=== PATIENT | female | born 1930 | race Caucasian/White ===

== ENCOUNTER 2016-02-24 14:56 | Inpatient (IN) | payer OTHER, MEDICARE ==
[~2016-02-24] VITALS: Ht 157.5 cm; Wt 76.7 kg
[~2016-02-24 14:56] MED LIST: AMLO5TAB2 PO; BISA5TAB10 PO; CLON0.1T PO; CLON0.5T4 PO; DIPH25TA62 PO; GABA-532 PO; IBUP-1955 PO; LEVO500T15 PO; LOSA1TAB36 PO; PANT40TA2 PO; ROSU20TA PO; SENN8.6T22 PO; TRAM50TA2 PO
[2016-02-24] MEDS ORDERED: DIATR MEGLU/DIATRIZOATE SODIUM 30 ML BOTTLE (GASTROGRAPHIN) ONE (17:08)
[2016-02-24 19:56] LABS: BASOPHILS # (AUTO) 0.4 /CMM (0.0-0.2); BASOPHILS % (AUTO) 2.9 % (0.0-2.0); DIFF TOTAL % 100 %; EOSINOPHILS # (AUTO) 0.2 /CMM (0.0-0.7); EOSINOPHILS % (AUTO) 1.3 % (0.0-6.0); HEMATOCRIT 32 % (33-45); HEMOGLOBIN 10.5 g/dL (11.5-14.8); LYMPHOCYTES # (AUTO) 3.4 /CMM (0.8-4.8); LYMPHOCYTES % (AUTO) 22.8 % (20.0-44.0); MEAN CORPUSCULAR HEMOGLOBIN 28 PG (26.0-33.0); MEAN CORPUSCULAR HGB CONC 33 g/dl (31.0-36.0); MEAN CORPUSCULAR VOLUME 86 fL (82-100); MONOCYTES # (AUTO) 0.9 /CMM (0.1-1.30); NEUTROPHILS # (AUTO) 10.2 /CMM (1.8-8.9); PLATELET COUNT (AUTO) 365 /CMM (150-450); RED BLOOD CELL COUNT(AUTO) 3.69 MIL/uL (4.0-5.2); WHITE BLOOD COUNT (AUTO) 15.1 K/uL (4.3-11.0)
[2016-02-24] MEDS ORDERED: MAG HYDROX/AL HYDROX/SIMETH 30 ML UDC PO PRN (20:00)
[2016-02-24] MEDS ORDERED: MAGNESIUM HYDROXIDE 30 ML UDC PO PRN (20:00)
[2016-02-24] MEDS ORDERED: ENOXAPARIN SODIUM 40 MG/0.4 ML DISP.SYRIN SQ SCH (20:00)
[2016-02-24] MEDS ORDERED: ONDANSETRON HCL/PF 4 MG/2 ML VIAL IVP PRN (20:00)
[2016-02-24] MEDS ORDERED: ACETAMINOPHEN 325 MG TABLET PO PRN (20:00)
[2016-02-24] MEDS ORDERED: Z GUARD REMEDY 2 OZ OINT TP PRN (20:00)
[2016-02-24 20:06] LABS: CALCIUM, SERUM 8.9 mg/dL (8.5-10.1); CREATININE 1.2 mg/dL (0.6-1.3); POTASSIUM 4.4 mmol/L (3.5-5.1)
[2016-02-24 20:10] LABS: INR 1.06 (0.87-1.13); PROTHROMBIN TIME 11.1 SECS (9.5-12.7)
[2016-02-24 21:00] VITALS: BP 99/51
[2016-02-24] MEDS: ENOXAPARIN SODIUM 30 MG/0.3 ML DISP.SYRIN SQ SCH (22:00)
[2016-02-24] MEDS ORDERED: IV SET PRIMARY PUMP SET 1 EA INFUS.SET MC ONE (23:22)
[2016-02-25] MEDS: IV NS 0.9% 1,000 ML IV PRN ×2 (01:41→19:48)
[2016-02-25 06:54] LABS: BASOPHILS % (AUTO) 0.4 % (0.0-2.0); DIFF TOTAL % 100 %; EOSINOPHILS # (AUTO) 0.1 /CMM (0.0-0.7); EOSINOPHILS % (AUTO) 0.4 % (0.0-6.0); HEMATOCRIT 31 % (33-45); HEMOGLOBIN 10.1 g/dL (11.5-14.8); LYMPHOCYTES # (AUTO) 2.6 /CMM (0.8-4.8); LYMPHOCYTES % (AUTO) 20.1 % (20.0-44.0); MEAN CORPUSCULAR HEMOGLOBIN 28 PG (26.0-33.0); MEAN CORPUSCULAR HGB CONC 33 g/dl (31.0-36.0); MEAN CORPUSCULAR VOLUME 87 fL (82-100); MONOCYTES # (AUTO) 0.1 /CMM (0.1-1.30); MONOCYTES % (AUTO) 0.6 % (2.0-12.0); NEUTROPHILS # (AUTO) 10.1 /CMM (1.8-8.9); NEUTROPHILS % (AUTO) 78.5 % (43.0-81.0); PLATELET COUNT (AUTO) 356 /CMM (150-450); RED BLOOD CELL COUNT(AUTO) 3.58 MIL/uL (4.0-5.2); WHITE BLOOD COUNT (AUTO) 12.9 K/uL (4.3-11.0)
[2016-02-25 07:29] LABS: CALCIUM, SERUM 8.7 mg/dL (8.5-10.1); CREATININE 1.1 mg/dL (0.6-1.3); PHOSPHORUS 4.2 mg/dL (2.5-4.9); POTASSIUM 4.2 mmol/L (3.5-5.1)
[2016-02-25] MEDS ORDERED: ALBU2.5V12 IH (07:58)
[2016-02-25] MEDS ORDERED: BLOO-697 IN (07:58)
[2016-02-25] MEDS ORDERED: NUT.237L30 GT (07:58)
[2016-02-25] MEDS ORDERED: ACET160S3 GT ×2 (07:58)
[2016-02-25] MEDS ORDERED: FAMO20TA8 GT (07:58)
[2016-02-25] MEDS ORDERED: ATOR10TA GT (07:58)
[2016-02-25] MEDS ORDERED: DOCU50LI GT (07:58)
[2016-02-25] MEDS ORDERED: SERT100T12 PO (07:58)
[2016-02-25] MEDS ORDERED: RISP0.252 GT (07:58)
[2016-02-25] MEDS ORDERED: IPRA0.2S9 IH (07:58)
[2016-02-25] MEDS ORDERED: ALLA266C2 TP (07:58)
[2016-02-25] MEDS ORDERED: INSU100V13 SQ (07:58)
[2016-02-25] MEDS ORDERED: AMIN30LI4 GT (07:58)
[2016-02-25] MEDS ORDERED: GEL100GE TP (07:58)
[2016-02-25 08:00] VITALS: BP 108/52
[2016-02-25] MEDS: PANTOPRAZOLE 40 MG VIAL IV SCH (08:11)
[2016-02-25] MEDS ORDERED: VECURONIUM 10 MG VIAL ONE (13:30)
[2016-02-25] MEDS: MORPHINE SULFATE INJ 2 MG/ML DISP.SYRIN IV PRN (14:17)
[2016-02-25 16:00] VITALS: BP 121/71
[2016-02-25 20:50] VITALS: BP 93/56
[2016-02-25] MEDS: ENOXAPARIN SODIUM 30 MG/0.3 ML DISP.SYRIN SQ SCH (21:00)
[2016-02-26 08:00] VITALS: BP 118/55
[2016-02-26] MEDS ORDERED: GLYTROL 1,000 ML BAG GT PRN (15:30)
[2016-02-26 16:00] VITALS: BP 125/51
[2016-02-26] MEDS: PANTOPRAZOLE 40 MG VIAL IV SCH (16:16)
[2016-02-26] MEDS: HYDROGEL DRESSING 90 GM TUBE TP SCH (16:17)
[2016-02-26] MEDS: IV NS 0.9% 1,000 ML IV PRN (17:59)
[2016-02-26] MEDS: ENOXAPARIN SODIUM 30 MG/0.3 ML DISP.SYRIN SQ SCH (20:35)
[2016-02-26] MEDS: MORPHINE SULFATE INJ 2 MG/ML DISP.SYRIN IV PRN (20:40)
[2016-02-26 21:19] VITALS: BP_SYST 125; BP_SYST 92; BP_SYST 94; BP_DIAS 36; BP_DIAS 46; BP_DIAS 64
[2016-02-27 06:42] LABS: BASOPHILS # (AUTO) 0.1 /CMM (0.0-0.2); BASOPHILS % (AUTO) 0.8 % (0.0-2.0); DIFF TOTAL % 100 %; EOSINOPHILS # (AUTO) 0.2 /CMM (0.0-0.7); EOSINOPHILS % (AUTO) 1.5 % (0.0-6.0); HEMATOCRIT 32 % (33-45); HEMOGLOBIN 10.4 g/dL (11.5-14.8); LYMPHOCYTES # (AUTO) 2.3 /CMM (0.8-4.8); LYMPHOCYTES % (AUTO) 21.4 % (20.0-44.0); MEAN CORPUSCULAR HEMOGLOBIN 28 PG (26.0-33.0); MEAN CORPUSCULAR HGB CONC 33 g/dl (31.0-36.0); MEAN CORPUSCULAR VOLUME 87 fL (82-100); MONOCYTES # (AUTO) 0.1 /CMM (0.1-1.30); MONOCYTES % (AUTO) 1.2 % (2.0-12.0); NEUTROPHILS # (AUTO) 8.1 /CMM (1.8-8.9); NEUTROPHILS % (AUTO) 75.1 % (43.0-81.0); PLATELET COUNT (AUTO) 357 /CMM (150-450); RED BLOOD CELL COUNT(AUTO) 3.66 MIL/uL (4.0-5.2); WHITE BLOOD COUNT (AUTO) 10.7 K/uL (4.3-11.0)
[2016-02-27 07:02] LABS: CALCIUM, SERUM 8.7 mg/dL (8.5-10.1); CREATININE 0.8 mg/dL (0.6-1.3); POTASSIUM 4.1 mmol/L (3.5-5.1)
[2016-02-27 08:00] VITALS: BP 134/61
[2016-02-27] MEDS: PANTOPRAZOLE 40 MG VIAL IV SCH (08:48)
[2016-02-27] MEDS: HYDROGEL DRESSING 90 GM TUBE TP SCH (08:49)
== END 2016-02-27 16:00 | DRG 252 ==
LOC: ER 14:57 → MEDSG2 20:49
PROVIDERS: ADMIT Family Medicine; ATTEND Family Medicine
PROC: 0D20XUZ Change Feeding Device in Upper Intestinal Tract, External Approach (ICD-10-PCS; principal; 2016-02-26 09:06)
DX: K94.23 Gastrostomy malfunction (principal); G30.9 Alzheimer's disease, unspecified; I11.0 Hypertensive heart disease with heart failure; I50.32 Chronic diastolic (congestive) heart failure; R13.10 Dysphagia, unspecified; F02.80 Dementia in other diseases classified elsewhere, unspecified severity, without behavioral disturbance, psychotic disturbance, mood disturbance, and anxiety; D63.8 Anemia in other chronic diseases classified elsewhere; E11.9 Type 2 diabetes mellitus without complications; E78.5 Hyperlipidemia, unspecified; I25.10 Atherosclerotic heart disease of native coronary artery without angina pectoris; K21.9 Gastro-esophageal reflux disease without esophagitis; M19.90 Unspecified osteoarthritis, unspecified site; D72.829 Elevated white blood cell count, unspecified; Y84.9 Medical procedure, unspecified as the cause of abnormal reaction of the patient, or of later complication, without mention of misadventure at the time of the procedure; Y92.89 Other specified places as the place of occurrence of the external cause
CPT/HCPCS: 36415; 43246; 71010-TC; 74000-TC; 80048-TC; 83735-TC; 84100-TC; 85025-TC; 85730-TC; 86850-TC; 87081-TC; 92521; A4606; A6248; C9113; J1650; J2270; J3490; J7030; Q9963; Z7610

== ENCOUNTER 2016-04-25 12:26 | Inpatient (IN) | payer OTHER, MEDICARE ==
[2016-04-25] VITALS: BP 123/46
[~2016-04-25] VITALS: Ht 157.5 cm; Wt 86.2 kg
[~2016-04-25 12:26] MED LIST changes: +ACET650S26 GT; +ALBU2.5V13 IH; +ALLA266C2 TP; +AMIN30LI4 GT; -AMLO5TAB2 PO; +ATOR10TA GT; -BISA5TAB10 PO; +BLOO-697 IN; -CLON0.1T PO; -CLON0.5T4 PO; -DIPH25TA62 PO; +DOCU50LI GT; +FAMO20TA8 GT; -GABA-532 PO; +GEL100GE TP; -IBUP-1955 PO; +INSU100V7 SQ; +IPRA0.2S9 IH; -LEVO500T15 PO; -LOSA1TAB36 PO; +NUT.237L30 GT; -PANT40TA2 PO; +RISP0.253 GT; -ROSU20TA PO; -SENN8.6T22 PO; +SERT100T12 GT; -TRAM50TA2 PO
[2016-04-25] MEDS ORDERED: ACETAMINOPHEN ES 500 MG TABLET PO ONE (13:00)
[2016-04-25] MEDS ORDERED: IV NS 0.9% 1,000 ML ONE (13:00)
[2016-04-25] MEDS ORDERED: ACETAMINOPHEN ES 500 MG TABLET ONE (13:00)
[2016-04-25] MEDS ORDERED: IV NS 0.9% 1,000 ML BAG IV ONE (13:00)
[2016-04-25] MEDS ORDERED: IV SET PRIMARY PUMP SET 1 EA INFUS.SET MC ONE ×2 (13:00→14:34)
[2016-04-25 13:39] LABS: KETONES,URINE Negative (NEGATIVE); LEUKOCYTE ESTERASE ,URINE Large (NEGATIVE)
[2016-04-25 13:49] LABS: BASOPHILS # (AUTO) 0.5 /CMM (0.0-0.2); BASOPHILS % (AUTO) 1.7 % (0.0-2.0); DIFF TOTAL % 100 %; HEMATOCRIT 31 % (33-45); HEMOGLOBIN 10.4 g/dL (11.5-14.8); LYMPHOCYTES # (AUTO) 1.5 /CMM (0.8-4.8); LYMPHOCYTES % (AUTO) 4.7 % (20.0-44.0); MEAN CORPUSCULAR HEMOGLOBIN 29 PG (26.0-33.0); MEAN CORPUSCULAR HGB CONC 33 g/dl (31.0-36.0); MEAN CORPUSCULAR VOLUME 88 fL (82-100); MONOCYTES # (AUTO) 2.1 /CMM (0.1-1.30); MONOCYTES % (AUTO) 6.5 % (2.0-12.0); NEUTROPHILS # (AUTO) 27.8 /CMM (1.8-8.9); NEUTROPHILS % (AUTO) 87.1 % (43.0-81.0); PLATELET COUNT (AUTO) 308 /CMM (150-450); RED BLOOD CELL COUNT(AUTO) 3.57 MIL/uL (4.0-5.2)
[2016-04-25 13:49] LABS: ADD UA MICROSCOPIC YES
[2016-04-25 13:53] LABS: WHITE BLOOD COUNT (AUTO) 31.9 K/uL (4.3-11.0)
[2016-04-25 13:54] LABS: CALCIUM, SERUM 9.2 mg/dL (8.5-10.1); CREATININE 1.2 mg/dL (0.6-1.3); POTASSIUM 4.7 mmol/L (3.5-5.1)
[2016-04-25 13:57] LABS: INR 1.05 (0.87-1.13)
[2016-04-25 14:00] LABS: TROPONIN I 0.041 ng/mL (0.00-0.056)
[2016-04-25 14:09] LABS: ADD URINE CULTURE YES
[2016-04-25 14:09] LABS: ALBUMIN 2.2 g/dL (3.4-5.0); BILIRUBIN,DIRECT 0.1 mg/dL (0.0-0.2); BILIRUBIN,TOTAL 0.2 mg/dL (0.2-1.0); INDIRECT BILIRUBIN 0.1 mg/dL (0.0-1.1); TOTAL PROTEIN, SERUM 7.5 g/dL (6.4-8.2)
[2016-04-25] MEDS ORDERED: CARB-93 GT (14:16)
[2016-04-25] MEDS ORDERED: ASCO-340 GT (14:16)
[2016-04-25] MEDS ORDERED: RISP1TAB27 GT (14:16)
[2016-04-25] MEDS ORDERED: HEPA500014 SQ (14:16)
[2016-04-25] MEDS ORDERED: ZINC220T GT (14:16)
[2016-04-25 14:19] LABS: LACTIC ACID 1.5 mmol/L (0.4-2.0)
[2016-04-25] MEDS ORDERED: LEVOFLOXACIN 750 MG /D5W 150ML 150 ML IV ONE ×2 (14:30→14:34)
[2016-04-25 15:45] LABS: BAND % (MANUAL) 4 % (0.0-5.0); LYMPHOCYTES % (MANUAL) 12 % (16-48); PLATELET ESTIMATE ADEQUATE
[2016-04-25 15:46] LABS: ANISOCYTOSIS 1+
[2016-04-25 16:00] VITALS: BP_SYST 105; BP_SYST 92; BP_DIAS 28; BP_DIAS 44
[2016-04-25] MEDS ORDERED: HYDROGEL DRESSING 90 GM TUBE TP PRN (16:30)
[2016-04-25] MEDS: Z GUARD REMEDY 2 OZ OINT TP SCH (16:30)
[2016-04-25] MEDS: NYSTATIN CREAM 15 GM TUBE TP SCH (17:00)
[2016-04-25] MEDS ORDERED: VANCOMYCIN 1 GM in IV D5W 250 ML IV ONE (17:30)
[2016-04-25] MEDS ORDERED: HYDROCODONE/APAP 5/325MG 1 EACH TABLET PO PRN (18:00)
[2016-04-25] MEDS ORDERED: ONDANSETRON HCL/PF 4 MG/2 ML VIAL IVP PRN (18:00)
[2016-04-25] MEDS ORDERED: IV NS 0.9% 1,000 ML BAG IV PRN (18:00)
[2016-04-25] MEDS ORDERED: GLYTROL 1,000 ML BAG GT SCH (18:00)
[2016-04-25] MEDS ORDERED: Z GUARD REMEDY 2 OZ OINT TP PRN (18:00)
[2016-04-25] MEDS ORDERED: MAG HYDROX/AL HYDROX/SIMETH 30 ML UDC PO PRN (18:00)
[2016-04-25] MEDS ORDERED: MAGNESIUM HYDROXIDE 30 ML UDC PO PRN (18:00)
[2016-04-25] MEDS ORDERED: SECONDARY IV SET 1 EA INFUS.SET MC ONE (18:50)
[2016-04-25] MEDS: IV NS 0.9% 1,000 ML IV SCH (18:51)
[2016-04-25] MEDS: MEROPENEM 500 MG in IV NS 0.9% 50 ML IV SCH (18:54)
[2016-04-25 19:18] LABS: ALBUMIN 2.1 g/dL (3.4-5.0); BILIRUBIN,DIRECT 0.1 mg/dL (0.0-0.2); BILIRUBIN,TOTAL 0.3 mg/dL (0.2-1.0); INDIRECT BILIRUBIN 0.2 mg/dL (0.0-1.1); TOTAL PROTEIN, SERUM 7.4 g/dL (6.4-8.2)
[2016-04-25 19:21] LABS: LACTIC ACID 0.7 mmol/L (0.4-2.0)
[2016-04-25 20:00] VITALS: BP 114/49
[2016-04-25] MEDS ORDERED: ZOLPIDEM TARTRATE 5 MG TABLET PO PRN (22:00)
[2016-04-25] MEDS: METRONIDAZOLE 500 MG TABLET PO SCH (22:32)
[2016-04-25] MEDS: ATORVASTATIN 10 MG TABLET GT SCH (22:33)
[2016-04-25] MEDS: ENOXAPARIN SODIUM 30 MG/0.3 ML DISP.SYRIN SQ SCH (22:33)
[2016-04-25] MEDS: INSULIN DETEMIR 100 UNIT/ML CARTRIDGE SQ SCH (22:43)
[2016-04-26] VITALS: BP 123/46
[2016-04-26] MEDS: IV NS 0.9% 1,000 ML IV SCH ×2 (00:36→14:12)
[2016-04-26] MEDS: ACETAMINOPHEN 325 MG TABLET PO PRN ×2 (03:28→22:48)
[2016-04-26 04:00] VITALS: BP 134/50
[2016-04-26] MEDS: METRONIDAZOLE 500 MG TABLET PO SCH ×3 (05:45→21:15)
[2016-04-26] MEDS: MEROPENEM 500 MG in IV NS 0.9% 50 ML IV SCH ×2 (05:45→17:38)
[2016-04-26 07:48] LABS: ANION GAP 14 (5-14); CARBON DIOXIDE 27 mmol/L (21-32); CHLORIDE 106 mmol/L (98-107); CREATININE 1.2 mg/dL (0.6-1.3); GLUCOSE 185 mg/dL (74-106); PHOSPHORUS 3.1 mg/dL (2.5-4.9); POTASSIUM 3.9 mmol/L (3.5-5.1); SODIUM SERUM 143 mmol/L (136-145); UREA NITROGEN, BLOOD 62 mg/dL (7-18)
[2016-04-26 07:50] LABS: CHOLESTEROL 81 mg/dL (<200); LDL 23 mg/dL (0-99); TRIGLYCERIDES 345 mg/dL (30-150)
[2016-04-26 07:59] LABS: BASOPHILS % (AUTO) 0.2 % (0.0-2.0); DIFF TOTAL % 100 %; HEMATOCRIT 30 % (33-45); HEMOGLOBIN 9.6 g/dL (11.5-14.8); LYMPHOCYTES # (AUTO) 1.2 /CMM (0.8-4.8); MEAN CORPUSCULAR HEMOGLOBIN 29 PG (26.0-33.0); MEAN CORPUSCULAR HGB CONC 33 g/dl (31.0-36.0); MEAN CORPUSCULAR VOLUME 88 fL (82-100); MONOCYTES # (AUTO) 0.6 /CMM (0.1-1.30); NEUTROPHILS # (AUTO) 27.3 /CMM (1.8-8.9); NEUTROPHILS % (AUTO) 93.8 % (43.0-81.0); PLATELET COUNT (AUTO) 295 /CMM (150-450); RED BLOOD CELL COUNT(AUTO) 3.35 MIL/uL (4.0-5.2); WHITE BLOOD COUNT (AUTO) 29.1 K/uL (4.3-11.0)
[2016-04-26 08:00] VITALS: BP 108/43
[2016-04-26 08:35] LABS: HDL CHOLESTEROL < 10 mg/dL (40-60)
[2016-04-26] MEDS: DOCUSATE SODIUM LIQ 100 MG/10 ML UDC GT SCH ×2 (09:00→17:36)
[2016-04-26] MEDS ORDERED: IV NS 0.9% 1,000 ML BAG IV SCH (09:00)
[2016-04-26] MEDS ORDERED: HEPARIN SODIUM PORCINE SQ SCH (09:00)
[2016-04-26] MEDS: ASCORBIC ACID 500 MG TABLET GT SCH (09:01)
[2016-04-26] MEDS: FAMOTIDINE (20 MG) 20 MG TABLET GT SCH (09:01)
[2016-04-26] MEDS: risperiDONE 1 MG TABLET PO SCH (09:01)
[2016-04-26] MEDS: PANTOPRAZOLE 40 MG TABLET.DR PO SCH (09:01)
[2016-04-26] MEDS: SERTRALINE HCL 50 MG TABLET GT SCH (09:01)
[2016-04-26] MEDS: ZINC SULFATE 220 MG CAPSULE GT SCH (09:01)
[2016-04-26] MEDS: CARBIDOPA/LEVODOPA 25/100 MG 1 UDTAB GT SCH ×3 (09:01→17:36)
[2016-04-26] MEDS: NEOMY SULF/BACITRAC ZN/POLY 15 GM TUBE TP SCH (09:02)
[2016-04-26] MEDS: Z GUARD REMEDY 2 OZ OINT TP SCH (09:02)
[2016-04-26] MEDS: NYSTATIN CREAM 15 GM TUBE TP SCH ×2 (09:02→17:49)
[2016-04-26] MEDS: BLOOD SUGAR DIAGNOSTIC 1 EACH STRIP IN SCH (09:02)
[2016-04-26 11:45] LABS: LYMPHOCYTES % (MANUAL) 7 % (16-48)
[2016-04-26 11:48] LABS: PLATELET ESTIMATE ADEQU
[2016-04-26] MEDS: ACETAMINOPHEN 650 MG/20.3 ML UDC GT PRN (11:51)
[2016-04-26 12:00] VITALS: BP 108/48
[2016-04-26 16:00] VITALS: BP 123/51
[2016-04-26] MEDS: CHOLESTYRAMINE/ASPARTAME 4 G/PKT PACKET PO SCH (17:36)
[2016-04-26] MEDS: ACIDOPHILUS/BULGARICUS 1 EACH TAB.CHEW PO SCH (17:36)
[2016-04-26] MEDS ORDERED: VANCOMYCIN FOR PO/GT USE 500 MG ORAL.SUSP PO SCH (18:00)
[2016-04-26] MEDS: VANCOMYCIN HCL 125 MG/2.5 ML ORAL.SUSP PO SCH (18:27)
[2016-04-26] MEDS: GLYTROL 1,000 ML BAG GT SCH (18:28)
[2016-04-26 20:00] VITALS: BP 117/38
[2016-04-26] MEDS: MUPIROCIN OINT 2% 22 GM TUBE SCH (21:15)
[2016-04-26] MEDS: ATORVASTATIN 10 MG TABLET GT SCH (21:15)
[2016-04-26] MEDS: ENOXAPARIN SODIUM 30 MG/0.3 ML DISP.SYRIN SQ SCH (21:16)
[2016-04-26] MEDS: INSULIN DETEMIR 100 UNIT/ML CARTRIDGE SQ SCH (22:09)
[2016-04-27] MEDS: VANCOMYCIN HCL 125 MG/2.5 ML ORAL.SUSP PO SCH ×4 (00:41→18:28)
[2016-04-27] MEDS: IV NS 0.9% 1,000 ML IV SCH ×3 (01:57→22:32)
[2016-04-27 04:00] VITALS: BP 109/42
[2016-04-27] MEDS: MEROPENEM 500 MG in IV NS 0.9% 50 ML IV SCH ×2 (05:10→18:28)
[2016-04-27] MEDS: METRONIDAZOLE 500 MG TABLET PO SCH ×3 (05:10→22:32)
[2016-04-27 08:00] VITALS: BP 112/49
[2016-04-27] MEDS: MUPIROCIN OINT 2% 22 GM TUBE SCH ×2 (09:00→22:34)
[2016-04-27] MEDS: Z GUARD REMEDY 2 OZ OINT TP SCH (09:42)
[2016-04-27] MEDS: SERTRALINE HCL 50 MG TABLET GT SCH (09:57)
[2016-04-27] MEDS: DOCUSATE SODIUM LIQ 100 MG/10 ML UDC GT SCH ×2 (09:57→16:08)
[2016-04-27] MEDS: ZINC SULFATE 220 MG CAPSULE GT SCH (09:57)
[2016-04-27] MEDS: risperiDONE 1 MG TABLET PO SCH (09:58)
[2016-04-27] MEDS: ASCORBIC ACID 500 MG TABLET GT SCH (09:58)
[2016-04-27] MEDS: FAMOTIDINE (20 MG) 20 MG TABLET GT SCH (09:58)
[2016-04-27] MEDS: ACIDOPHILUS/BULGARICUS 1 EACH TAB.CHEW PO SCH ×3 (09:58→16:08)
[2016-04-27] MEDS: ACETAMINOPHEN 325 MG TABLET PO PRN (09:58)
[2016-04-27] MEDS: CARBIDOPA/LEVODOPA 25/100 MG 1 UDTAB GT SCH ×3 (09:58→16:08)
[2016-04-27] MEDS: PANTOPRAZOLE 40 MG TABLET.DR PO SCH (09:58)
[2016-04-27] MEDS: NYSTATIN CREAM 15 GM TUBE TP SCH ×2 (09:59→16:08)
[2016-04-27] MEDS: BLOOD SUGAR DIAGNOSTIC 1 EACH STRIP IN SCH (09:59)
[2016-04-27] MEDS: NEOMY SULF/BACITRAC ZN/POLY 15 GM TUBE TP SCH (10:15)
[2016-04-27] MEDS: CHOLESTYRAMINE/ASPARTAME 4 G/PKT PACKET PO SCH (11:00)
[2016-04-27 16:00] VITALS: BP 108/37
[2016-04-27 20:00] VITALS: BP 92/42
[2016-04-27 21:21] LABS: DIFF TOTAL % 100 %; EOSINOPHILS # (AUTO) 0.1 /CMM (0.0-0.7); EOSINOPHILS % (AUTO) 0.2 % (0.0-6.0); HEMATOCRIT 27 % (33-45); HEMOGLOBIN 8.9 g/dL (11.5-14.8); LYMPHOCYTES # (AUTO) 2.4 /CMM (0.8-4.8); LYMPHOCYTES % (AUTO) 7.3 % (20.0-44.0); MEAN CORPUSCULAR HEMOGLOBIN 29 PG (26.0-33.0); MEAN CORPUSCULAR HGB CONC 33 g/dl (31.0-36.0); MEAN CORPUSCULAR VOLUME 89 fL (82-100); MONOCYTES # (AUTO) 0.4 /CMM (0.1-1.30); MONOCYTES % (AUTO) 1.2 % (2.0-12.0); NEUTROPHILS # (AUTO) 29.5 /CMM (1.8-8.9); NEUTROPHILS % (AUTO) 91.3 % (43.0-81.0); PLATELET COUNT (AUTO) 285 /CMM (150-450); RED BLOOD CELL COUNT(AUTO) 3.08 MIL/uL (4.0-5.2)
[2016-04-27 21:26] LABS: WHITE BLOOD COUNT (AUTO) 32.3 K/uL (4.3-11.0)
[2016-04-27] MEDS: ATORVASTATIN 10 MG TABLET GT SCH (22:32)
[2016-04-27] MEDS: GLYTROL 1,000 ML BAG GT SCH (22:33)
[2016-04-27] MEDS: ENOXAPARIN SODIUM 30 MG/0.3 ML DISP.SYRIN SQ SCH (22:35)
[2016-04-27] MEDS: INSULIN DETEMIR 100 UNIT/ML CARTRIDGE SQ SCH (22:48)
[2016-04-28 00:04] LABS: ANISOCYTOSIS 2+; BAND % (MANUAL) 2 % (0.0-5.0); HYPOCHROMASIA 2+; LYMPHOCYTES % (MANUAL) 8 % (16-48); PLATELET ESTIMATE ADEQUATE
[2016-04-28] MEDS: VANCOMYCIN HCL 125 MG/2.5 ML ORAL.SUSP PO SCH ×5 (00:24→23:20)
[2016-04-28 04:00] VITALS: BP 102/41
[2016-04-28] MEDS: MEROPENEM 500 MG in IV NS 0.9% 50 ML IV SCH ×2 (05:23→18:03)
[2016-04-28] MEDS: METRONIDAZOLE 500 MG TABLET PO SCH ×3 (05:23→21:31)
[2016-04-28 06:39] LABS: BASOPHILS % (AUTO) 0.1 % (0.0-2.0); DIFF TOTAL % 100 %; EOSINOPHILS # (AUTO) 0.2 /CMM (0.0-0.7); EOSINOPHILS % (AUTO) 0.6 % (0.0-6.0); HEMATOCRIT 32 % (33-45); HEMOGLOBIN 10.2 g/dL (11.5-14.8); LYMPHOCYTES # (AUTO) 2.2 /CMM (0.8-4.8); LYMPHOCYTES % (AUTO) 6.9 % (20.0-44.0); MEAN CORPUSCULAR HEMOGLOBIN 29 PG (26.0-33.0); MEAN CORPUSCULAR HGB CONC 32 g/dl (31.0-36.0); MEAN CORPUSCULAR VOLUME 91 fL (82-100); MONOCYTES # (AUTO) 0.1 /CMM (0.1-1.30); MONOCYTES % (AUTO) 0.4 % (2.0-12.0); NEUTROPHILS # (AUTO) 28.9 /CMM (1.8-8.9); PLATELET COUNT (AUTO) 156 /CMM (150-450)
[2016-04-28 06:54] LABS: WHITE BLOOD COUNT (AUTO) 31.4 K/uL (4.3-11.0)
[2016-04-28 07:04] LABS: CALCIUM, SERUM 8.8 mg/dL (8.5-10.1); CREATININE 0.9 mg/dL (0.6-1.3); PHOSPHORUS 3.5 mg/dL (2.5-4.9); POTASSIUM 4.4 mmol/L (3.5-5.1)
[2016-04-28] MEDS: IV NS 0.9% 1,000 ML IV SCH ×2 (07:23→17:31)
[2016-04-28] MEDS: PANTOPRAZOLE 40 MG TABLET.DR PO SCH (07:30)
[2016-04-28 07:31] LABS: ANISOCYTOSIS 1+; BAND % (MANUAL) 4 % (0.0-5.0); LYMPHOCYTES % (MANUAL) 15 % (16-48); PLATELET ESTIMATE DECREASED
[2016-04-28 08:00] VITALS: BP 108/95
[2016-04-28] MEDS: SERTRALINE HCL 50 MG TABLET GT SCH (09:53)
[2016-04-28] MEDS: DOCUSATE SODIUM LIQ 100 MG/10 ML UDC GT SCH ×2 (09:53→17:30)
[2016-04-28] MEDS: FAMOTIDINE (20 MG) 20 MG TABLET GT SCH (09:54)
[2016-04-28] MEDS: ZINC SULFATE 220 MG CAPSULE GT SCH (09:54)
[2016-04-28] MEDS: CHOLESTYRAMINE/ASPARTAME 4 G/PKT PACKET PO SCH (09:54)
[2016-04-28] MEDS: risperiDONE 1 MG TABLET PO SCH (09:54)
[2016-04-28] MEDS: CARBIDOPA/LEVODOPA 25/100 MG 1 UDTAB GT SCH ×3 (09:54→17:30)
[2016-04-28] MEDS: ACIDOPHILUS/BULGARICUS 1 EACH TAB.CHEW PO SCH ×3 (09:54→17:30)
[2016-04-28] MEDS: Z GUARD REMEDY 2 OZ OINT TP SCH (09:55)
[2016-04-28] MEDS: MUPIROCIN OINT 2% 22 GM TUBE SCH ×2 (09:55→21:31)
[2016-04-28] MEDS: ASCORBIC ACID 500 MG TABLET GT SCH (09:55)
[2016-04-28] MEDS: NEOMY SULF/BACITRAC ZN/POLY 15 GM TUBE TP SCH (09:55)
[2016-04-28] MEDS: BLOOD SUGAR DIAGNOSTIC 1 EACH STRIP IN SCH (09:55)
[2016-04-28] MEDS: NYSTATIN CREAM 15 GM TUBE TP SCH ×2 (09:55→16:53)
[2016-04-28 12:00] VITALS: BP 124/55
[2016-04-28 16:00] VITALS: BP 96/32
[2016-04-28] MEDS: GLYTROL 1,000 ML BAG GT SCH (19:52)
[2016-04-28 20:00] VITALS: BP 106/53
[2016-04-28 20:14] VITALS: BP 106/53
[2016-04-28] MEDS: ATORVASTATIN 10 MG TABLET GT SCH (21:31)
[2016-04-28] MEDS: ENOXAPARIN SODIUM 30 MG/0.3 ML DISP.SYRIN SQ SCH (21:32)
[2016-04-28] MEDS: INSULIN DETEMIR 100 UNIT/ML CARTRIDGE SQ SCH (21:48)
[2016-04-29] MEDS: IV NS 0.9% 1,000 ML IV SCH ×2 (02:19→13:57)
[2016-04-29 04:00] VITALS: BP 116/46
[2016-04-29] MEDS: METRONIDAZOLE 500 MG TABLET PO SCH ×3 (05:14→21:54)
[2016-04-29] MEDS: VANCOMYCIN HCL 125 MG/2.5 ML ORAL.SUSP PO SCH ×3 (05:14→17:18)
[2016-04-29] MEDS: MEROPENEM 500 MG in IV NS 0.9% 50 ML IV SCH ×2 (05:14→19:04)
[2016-04-29] MEDS: SERTRALINE HCL 50 MG TABLET GT SCH (08:40)
[2016-04-29] MEDS: DOCUSATE SODIUM LIQ 100 MG/10 ML UDC GT SCH ×2 (08:40→17:17)
[2016-04-29] MEDS: ZINC SULFATE 220 MG CAPSULE GT SCH (08:41)
[2016-04-29] MEDS: ASCORBIC ACID 500 MG TABLET GT SCH (08:41)
[2016-04-29] MEDS: CHOLESTYRAMINE/ASPARTAME 4 G/PKT PACKET PO SCH (08:41)
[2016-04-29] MEDS: CARBIDOPA/LEVODOPA 25/100 MG 1 UDTAB GT SCH ×3 (08:41→17:17)
[2016-04-29] MEDS: ACIDOPHILUS/BULGARICUS 1 EACH TAB.CHEW PO SCH ×3 (08:41→17:17)
[2016-04-29] MEDS: FAMOTIDINE (20 MG) 20 MG TABLET GT SCH (08:41)
[2016-04-29] MEDS: risperiDONE 1 MG TABLET PO SCH (08:41)
[2016-04-29] MEDS: PANTOPRAZOLE 40 MG TABLET.DR PO SCH (08:41)
[2016-04-29] MEDS: NEOMY SULF/BACITRAC ZN/POLY 15 GM TUBE TP SCH (09:37)
[2016-04-29] MEDS: Z GUARD REMEDY 2 OZ OINT TP SCH (09:37)
[2016-04-29] MEDS: MUPIROCIN OINT 2% 22 GM TUBE SCH ×2 (09:37→21:55)
[2016-04-29] MEDS: BLOOD SUGAR DIAGNOSTIC 1 EACH STRIP IN SCH (09:37)
[2016-04-29] MEDS: NYSTATIN CREAM 15 GM TUBE TP SCH ×2 (09:37→17:17)
[2016-04-29 12:22] LABS: BASOPHILS % (AUTO) 0.2 % (0.0-2.0); DIFF TOTAL % 100 %; EOSINOPHILS # (AUTO) 0.2 /CMM (0.0-0.7); EOSINOPHILS % (AUTO) 0.9 % (0.0-6.0); HEMATOCRIT 28 % (33-45); HEMOGLOBIN 9.2 g/dL (11.5-14.8); LYMPHOCYTES % (AUTO) 10.5 % (20.0-44.0); MEAN CORPUSCULAR HEMOGLOBIN 29 PG (26.0-33.0); MEAN CORPUSCULAR HGB CONC 33 g/dl (31.0-36.0); MEAN CORPUSCULAR VOLUME 89 fL (82-100); MONOCYTES # (AUTO) 0.2 /CMM (0.1-1.30); NEUTROPHILS % (AUTO) 87.4 % (43.0-81.0); PLATELET COUNT (AUTO) 337 /CMM (150-450); RED BLOOD CELL COUNT(AUTO) 3.17 MIL/uL (4.0-5.2); WHITE BLOOD COUNT (AUTO) 19.5 K/uL (4.3-11.0)
[2016-04-29 20:00] VITALS: BP_SYST 118; BP_DIAS 40; BP_DIAS 90
[2016-04-29] MEDS: ENOXAPARIN SODIUM 30 MG/0.3 ML DISP.SYRIN SQ SCH (21:54)
[2016-04-29] MEDS: ATORVASTATIN 10 MG TABLET GT SCH (21:54)
[2016-04-29] MEDS: INSULIN DETEMIR 100 UNIT/ML CARTRIDGE SQ SCH (22:21)
[2016-04-30] MEDS: VANCOMYCIN HCL 125 MG/2.5 ML ORAL.SUSP PO SCH ×4 (00:39→17:00)
[2016-04-30] MEDS: IV NS 0.9% 1,000 ML IV SCH ×3 (02:36→19:52)
[2016-04-30 04:00] VITALS: BP 120/41
[2016-04-30] MEDS: METRONIDAZOLE 500 MG TABLET PO SCH ×3 (05:14→21:00)
[2016-04-30] MEDS: MEROPENEM 500 MG in IV NS 0.9% 50 ML IV SCH ×2 (06:14→17:00)
[2016-04-30 08:00] VITALS: BP 114/48
[2016-04-30] MEDS: GLYTROL 1,000 ML BAG GT SCH (08:27)
[2016-04-30] MEDS: ACIDOPHILUS/BULGARICUS 1 EACH TAB.CHEW PO SCH ×3 (08:28→16:57)
[2016-04-30] MEDS: BLOOD SUGAR DIAGNOSTIC 1 EACH STRIP IN SCH (08:28)
[2016-04-30] MEDS: CHOLESTYRAMINE/ASPARTAME 4 G/PKT PACKET PO SCH (08:29)
[2016-04-30] MEDS: risperiDONE 1 MG TABLET PO SCH (08:29)
[2016-04-30] MEDS: ASCORBIC ACID 500 MG TABLET GT SCH (08:29)
[2016-04-30] MEDS: PANTOPRAZOLE 40 MG TABLET.DR PO SCH (08:29)
[2016-04-30] MEDS: ZINC SULFATE 220 MG CAPSULE GT SCH (08:29)
[2016-04-30] MEDS: CARBIDOPA/LEVODOPA 25/100 MG 1 UDTAB GT SCH ×3 (08:29→16:57)
[2016-04-30] MEDS: DOCUSATE SODIUM LIQ 100 MG/10 ML UDC GT SCH ×2 (08:29→16:57)
[2016-04-30] MEDS: SERTRALINE HCL 50 MG TABLET GT SCH (08:29)
[2016-04-30] MEDS: FAMOTIDINE (20 MG) 20 MG TABLET GT SCH (08:29)
[2016-04-30] MEDS: NEOMY SULF/BACITRAC ZN/POLY 15 GM TUBE TP SCH (08:30)
[2016-04-30] MEDS: Z GUARD REMEDY 2 OZ OINT TP SCH (08:30)
[2016-04-30] MEDS: MUPIROCIN OINT 2% 22 GM TUBE SCH ×2 (08:30→22:26)
[2016-04-30] MEDS: NYSTATIN CREAM 15 GM TUBE TP SCH ×2 (11:46→17:00)
[2016-04-30 16:00] VITALS: BP 101/42
[2016-04-30] MEDS ORDERED: GLYTROL 1,000 ML BAG GT PRN (16:01)
[2016-04-30 20:00] VITALS: BP 109/48
[2016-04-30] MEDS: ENOXAPARIN SODIUM 30 MG/0.3 ML DISP.SYRIN SQ SCH (21:00)
[2016-04-30] MEDS: ATORVASTATIN 10 MG TABLET GT SCH (22:27)
[2016-04-30] MEDS: INSULIN DETEMIR 100 UNIT/ML CARTRIDGE SQ SCH (22:27)
[2016-05-01] MEDS: VANCOMYCIN HCL 125 MG/2.5 ML ORAL.SUSP PO SCH ×5 (00:49→23:56)
[2016-05-01 04:00] VITALS: BP 125/83
[2016-05-01] MEDS: IV NS 0.9% 1,000 ML IV SCH ×2 (04:17→18:35)
[2016-05-01] MEDS: METRONIDAZOLE 500 MG TABLET PO SCH ×3 (05:29→21:42)
[2016-05-01] MEDS: MEROPENEM 500 MG in IV NS 0.9% 50 ML IV SCH ×2 (05:29→18:36)
[2016-05-01] MEDS: PANTOPRAZOLE 40 MG TABLET.DR PO SCH (07:56)
[2016-05-01] MEDS: ACETAMINOPHEN 650 MG/20.3 ML UDC GT PRN (08:23)
[2016-05-01] MEDS: ZINC SULFATE 220 MG CAPSULE GT SCH (08:23)
[2016-05-01] MEDS: ACIDOPHILUS/BULGARICUS 1 EACH TAB.CHEW PO SCH ×3 (08:23→18:36)
[2016-05-01] MEDS: risperiDONE 1 MG TABLET PO SCH (08:23)
[2016-05-01] MEDS: MUPIROCIN OINT 2% 22 GM TUBE SCH ×2 (08:24→21:43)
[2016-05-01] MEDS: SERTRALINE HCL 50 MG TABLET GT SCH (08:24)
[2016-05-01] MEDS: ASCORBIC ACID 500 MG TABLET GT SCH (08:24)
[2016-05-01] MEDS: CARBIDOPA/LEVODOPA 25/100 MG 1 UDTAB GT SCH ×3 (08:24→18:36)
[2016-05-01] MEDS: CHOLESTYRAMINE/ASPARTAME 4 G/PKT PACKET PO SCH (08:24)
[2016-05-01] MEDS: FAMOTIDINE (20 MG) 20 MG TABLET GT SCH (08:24)
[2016-05-01] MEDS: NEOMY SULF/BACITRAC ZN/POLY 15 GM TUBE TP SCH (08:25)
[2016-05-01] MEDS: Z GUARD REMEDY 2 OZ OINT TP SCH (08:26)
[2016-05-01] MEDS: NYSTATIN CREAM 15 GM TUBE TP SCH ×2 (08:27→18:37)
[2016-05-01] MEDS: BLOOD SUGAR DIAGNOSTIC 1 EACH STRIP IN SCH (08:27)
[2016-05-01] MEDS: DOCUSATE SODIUM LIQ 100 MG/10 ML UDC GT SCH ×2 (08:27→18:36)
[2016-05-01 10:47] LABS: BASOPHILS # (AUTO) 0.1 /CMM (0.0-0.2); BASOPHILS % (AUTO) 0.6 % (0.0-2.0); DIFF TOTAL % 100 %; EOSINOPHILS # (AUTO) 0.1 /CMM (0.0-0.7); EOSINOPHILS % (AUTO) 0.5 % (0.0-6.0); HEMATOCRIT 29 % (33-45); HEMOGLOBIN 9.2 g/dL (11.5-14.8); LYMPHOCYTES # (AUTO) 2.1 /CMM (0.8-4.8); LYMPHOCYTES % (AUTO) 11.9 % (20.0-44.0); MEAN CORPUSCULAR HEMOGLOBIN 29 PG (26.0-33.0); MEAN CORPUSCULAR HGB CONC 32 g/dl (31.0-36.0); MEAN CORPUSCULAR VOLUME 89 fL (82-100); MONOCYTES # (AUTO) 0.6 /CMM (0.1-1.30); MONOCYTES % (AUTO) 3.4 % (2.0-12.0); NEUTROPHILS # (AUTO) 14.7 /CMM (1.8-8.9); NEUTROPHILS % (AUTO) 83.6 % (43.0-81.0); PLATELET COUNT (AUTO) 389 /CMM (150-450); RED BLOOD CELL COUNT(AUTO) 3.22 MIL/uL (4.0-5.2); WHITE BLOOD COUNT (AUTO) 17.6 K/uL (4.3-11.0)
[2016-05-01 16:00] VITALS: BP 144/49
[2016-05-01] MEDS ORDERED: IV SET PRIMARY PUMP SET 1 EA INFUS.SET MC ONE (17:04)
[2016-05-01] MEDS ORDERED: SECONDARY IV SET 1 EA INFUS.SET MC ONE (17:04)
[2016-05-01 20:00] VITALS: BP 111/63
[2016-05-01] MEDS: ATORVASTATIN 10 MG TABLET GT SCH (21:42)
[2016-05-01] MEDS: INSULIN DETEMIR 100 UNIT/ML CARTRIDGE SQ SCH (21:52)
[2016-05-01] MEDS: ENOXAPARIN SODIUM 30 MG/0.3 ML DISP.SYRIN SQ SCH (21:52)
[2016-05-02] VITALS: BP 111/63
[2016-05-02] MEDS: IV NS 0.9% 1,000 ML IV SCH ×2 (00:02→11:00)
[2016-05-02 03:00] VITALS: BP 132/52
[2016-05-02 04:00] VITALS: BP 132/52
[2016-05-02] MEDS: VANCOMYCIN HCL 125 MG/2.5 ML ORAL.SUSP PO SCH ×3 (05:30→18:10)
[2016-05-02] MEDS: METRONIDAZOLE 500 MG TABLET PO SCH ×3 (05:30→20:00)
[2016-05-02] MEDS: MEROPENEM 500 MG in IV NS 0.9% 50 ML IV SCH (05:30)
[2016-05-02] MEDS: PANTOPRAZOLE 40 MG TABLET.DR PO SCH (06:46)
[2016-05-02 08:00] VITALS: BP 126/49
[2016-05-02] MEDS: ZINC SULFATE 220 MG CAPSULE GT SCH (10:00)
[2016-05-02] MEDS: DOCUSATE SODIUM LIQ 100 MG/10 ML UDC GT SCH ×2 (10:00→18:10)
[2016-05-02] MEDS: ACIDOPHILUS/BULGARICUS 1 EACH TAB.CHEW PO SCH ×3 (10:01→18:11)
[2016-05-02] MEDS: SERTRALINE HCL 50 MG TABLET GT SCH (10:01)
[2016-05-02] MEDS: ASCORBIC ACID 500 MG TABLET GT SCH (10:01)
[2016-05-02] MEDS: FAMOTIDINE (20 MG) 20 MG TABLET GT SCH (10:01)
[2016-05-02] MEDS: CARBIDOPA/LEVODOPA 25/100 MG 1 UDTAB GT SCH ×3 (10:02→18:11)
[2016-05-02] MEDS: CHOLESTYRAMINE/ASPARTAME 4 G/PKT PACKET PO SCH (10:02)
[2016-05-02] MEDS: risperiDONE 1 MG TABLET PO SCH (10:02)
[2016-05-02] MEDS: NEOMY SULF/BACITRAC ZN/POLY 15 GM TUBE TP SCH (10:04)
[2016-05-02] MEDS: Z GUARD REMEDY 2 OZ OINT TP SCH (10:04)
[2016-05-02] MEDS: NYSTATIN CREAM 15 GM TUBE TP SCH ×2 (10:05→18:11)
[2016-05-02] MEDS: MUPIROCIN OINT 2% 22 GM TUBE SCH ×2 (10:07→20:02)
[2016-05-02] MEDS: BLOOD SUGAR DIAGNOSTIC 1 EACH STRIP IN SCH (10:09)
[2016-05-02] MEDS ORDERED: VANC125C11 PO (13:09)
[2016-05-02 16:00] VITALS: BP 128/53
[2016-05-02 20:00] VITALS: BP 124/40
[2016-05-02] MEDS: ENOXAPARIN SODIUM 30 MG/0.3 ML DISP.SYRIN SQ SCH (20:03)
== END 2016-05-02 20:59 | DRG 720 ==
LOC: ER 12:28 → TELE1 14:21 → MEDSG1 04-26 12:07
PROVIDERS: ADMIT Family Medicine; ATTEND Family Medicine
DX: A41.9 Sepsis, unspecified organism (principal); N17.0 Acute kidney failure with tubular necrosis; L89.152 Pressure ulcer of sacral region, stage 2; A04.7 Enterocolitis due to Clostridium difficile; I11.0 Hypertensive heart disease with heart failure; E11.621 Type 2 diabetes mellitus with foot ulcer; I50.32 Chronic diastolic (congestive) heart failure; R13.10 Dysphagia, unspecified; L89.621 Pressure ulcer of left heel, stage 1; L97.419 Non-pressure chronic ulcer of right heel and midfoot with unspecified severity; N39.0 Urinary tract infection, site not specified; G20 Parkinson's disease; B96.20 Unspecified Escherichia coli [E. coli] as the cause of diseases classified elsewhere; D63.8 Anemia in other chronic diseases classified elsewhere; G30.9 Alzheimer's disease, unspecified; F02.80 Dementia in other diseases classified elsewhere, unspecified severity, without behavioral disturbance, psychotic disturbance, mood disturbance, and anxiety; Z93.1 Gastrostomy status; I25.10 Atherosclerotic heart disease of native coronary artery without angina pectoris; F32.9 Major depressive disorder, single episode, unspecified; K21.9 Gastro-esophageal reflux disease without esophagitis; E78.5 Hyperlipidemia, unspecified; M19.90 Unspecified osteoarthritis, unspecified site; Z16.12 Extended spectrum beta lactamase (ESBL) resistance; L98.9 Disorder of the skin and subcutaneous tissue, unspecified; Z22.322 Carrier or suspected carrier of Methicillin resistant Staphylococcus aureus; L85.3 Xerosis cutis; L57.0 Actinic keratosis; R65.20 Severe sepsis without septic shock; L89.610 Pressure ulcer of right heel, unstageable
CPT/HCPCS: 36415; 71010-TC; 80048-TC; 80061-TC; 80076-TC; 81000-TC; 82962-TC; 83605-TC; 83735-TC; 84100-TC; 84484-TC; 85025-TC; 85730-TC; 87040-TC; 87081-TC; 87086-TC; 87186-TC; 92521; 92526; 94799-TC; 97003-TC; A4216; A4606; A6248; J1650; J1815; J1956; J2185; J3370; J7030; J7060; Z7610

== ENCOUNTER → 2016-07-29 | Emergency (ER) | payer MEDICARE, OTHER ==
[~2016-07-29] VITALS: Ht 162.6 cm; Wt 72.6 kg
[~2016-07-29] MED LIST changes: -ALBU2.5V13 IH; -ALLA266C2 TP; -AMIN30LI4 GT; +ASCO-340 GT; +CARB-93 GT; +DIATR MEGLU/DIATRIZOATE SODIUM 120 ML BOTTLE (GASTROGRAPHIN) ONE; +DIATR MEGLU/DIATRIZOATE SODIUM 30 ML BOTTLE (GASTROGRAPHIN) ONE; -GEL100GE TP; +HEPA500014 SQ; -IPRA0.2S9 IH; -RISP0.253 GT; +RISP1TAB27 GT; +VANC125C11 PO; +ZINC220T GT
[2016-07-29 19:41] VITALS: BP 137/41
--- NOTE | 2016-07-29 20:10 | NUR ---
KUB DONE. GTUBE PLACEMENT CONFIRMED.
--- NOTE | 2016-07-29 20:16 | NUR ---
Patient discharged to home in stable condition. Written and verbal after care instructions given. Patient verbalizes understanding of instruction.
== END | disposition home or self-care (01) ==
LOC: ER 19:36
DX: Z43.1 Encounter for attention to gastrostomy (principal); G30.9 Alzheimer's disease, unspecified; F02.80 Dementia in other diseases classified elsewhere, unspecified severity, without behavioral disturbance, psychotic disturbance, mood disturbance, and anxiety; I10 Essential (primary) hypertension; E11.9 Type 2 diabetes mellitus without complications; E78.00 Pure hypercholesterolemia, unspecified; Z79.4 Long term (current) use of insulin
CPT/HCPCS: 43760; 74000; 99284; A4606; Q9963; Z7610

== ENCOUNTER 2016-07-30 11:40 | Emergency (ER) | payer MEDICARE, OTHER ==
[~2016-07-30] VITALS: Ht 160 cm; Wt 68.0 kg
[~2016-07-30 11:40] MED LIST changes: -DIATR MEGLU/DIATRIZOATE SODIUM 120 ML BOTTLE (GASTROGRAPHIN) ONE; -DIATR MEGLU/DIATRIZOATE SODIUM 30 ML BOTTLE (GASTROGRAPHIN) ONE
[2016-07-30 12:30] VITALS: BP 148/72
== END 2016-07-30 13:15 | disposition home or self-care (01) ==
LOC: ER 11:43
DX: K94.23 Gastrostomy malfunction (principal); I10 Essential (primary) hypertension; I11.9 Hypertensive heart disease without heart failure; E78.00 Pure hypercholesterolemia, unspecified; G30.9 Alzheimer's disease, unspecified; F02.80 Dementia in other diseases classified elsewhere, unspecified severity, without behavioral disturbance, psychotic disturbance, mood disturbance, and anxiety; D64.9 Anemia, unspecified; R09.02 Hypoxemia; F03.90 Unspecified dementia, unspecified severity, without behavioral disturbance, psychotic disturbance, mood disturbance, and anxiety
CPT/HCPCS: 74000-TC; A4606; Z7610

== ENCOUNTER 2016-07-31 08:56 | Emergency (ER) | payer MEDICARE, OTHER ==
[~2016-07-31] VITALS: Ht 167.6 cm; Wt 81.6 kg
--- NOTE | 2016-07-31 09:21 | NUR ---
PT REC'D TO ER VIA EMS PT G TUBE OUT PUT 16F GTUBE SITE GOOD, AIR CKD . PT TOLERATED WELL SPEKS FARSI . CALM AND QUIET AT THIS TIME VSS
[2016-07-31] MEDS ORDERED: DIATR MEGLU/DIATRIZOATE SODIUM 30 ML BOTTLE (GASTROGRAPHIN) ONE (09:33)
--- NOTE | 2016-07-31 10:00 | NUR ---
PT GASTRO INSIRESTED F TO G TUBE FOR KUB PT TOLERATED WELL VSS HAD LARGE BM PT CLEANSED AND NOW SLEEPING SOUNDLY RESP EVEN UNLABORED
--- NOTE | 2016-07-31 10:27 | NUR ---
CALLED [facility] FOR PT PICKUP.
[2016-07-31 11:31] VITALS: BP 111/68
== END 2016-07-31 11:31 | disposition home or self-care (01) ==
LOC: ER 08:58
DX: Z43.1 Encounter for attention to gastrostomy (principal); E11.9 Type 2 diabetes mellitus without complications; E78.00 Pure hypercholesterolemia, unspecified; F02.80 Dementia in other diseases classified elsewhere, unspecified severity, without behavioral disturbance, psychotic disturbance, mood disturbance, and anxiety; G30.9 Alzheimer's disease, unspecified; I10 Essential (primary) hypertension; Z79.4 Long term (current) use of insulin
CPT/HCPCS: 74000-TC; A4606; Q9963; Z7610

== ENCOUNTER 2016-10-06 10:04 | Outpatient (CLI) | payer MEDICARE, OTHER | END 2016-10-06 23:59 | disposition home or self-care (01) | LOC: WOU 10:04 | PROVIDERS: ATTEND Podiatrist Foot & Ankle Surgery | DX: L60.0 Ingrowing nail (principal); G20 Parkinson's disease; F03.90 Unspecified dementia, unspecified severity, without behavioral disturbance, psychotic disturbance, mood disturbance, and anxiety; I10 Essential (primary) hypertension; E11.9 Type 2 diabetes mellitus without complications | CPT/HCPCS: 11730; A6402; J3490 ==

== ENCOUNTER 2017-01-14 21:34 | Emergency (ER) | payer MEDICARE, OTHER ==
[~2017-01-14] VITALS: Ht 157.5 cm; Wt 63.5 kg
--- NOTE | 2017-01-14 21:52 | NUR ---
PT BIBRA FROM SNF TO ER BED 09. HERE FOR G TUBE REPLACEMENT. HX OF DEMENTIA. STABLE VITALS. AWAITMD EVAL.
--- NOTE | 2017-01-14 22:15 | NUR ---
NEW G TUBE 16FR INSERTED. AWAITING ABDOMINAL KUB XRAY.
[2017-01-14] MEDS ORDERED: DIATR MEGLU/DIATRIZOATE SODIUM 30 ML BOTTLE (GASTROGRAPHIN) ONE (23:02)
--- NOTE | 2017-01-14 23:10 | NUR ---
RADIOLOGY AT BEDSIDE FOR ABDOMINAL XRAY S/P G TUBE REPLACEMENT.
--- NOTE | 2017-01-14 23:25 | NUR ---
CALLED [facility] FOR TRANSPORT - ETA 60 MIN - TRIP # [id number]
--- NOTE | 2017-01-15 00:13 | NUR ---
PT TRANSPORTED BACK TO SNF. STABLE CONDITION.
[2017-01-15 00:15] VITALS: BP 125/68
== END 2017-01-15 00:16 | disposition home or self-care (01) ==
LOC: ER 21:36
DX: Z43.1 Encounter for attention to gastrostomy (principal); Z46.59 Encounter for fitting and adjustment of other gastrointestinal appliance and device; D64.9 Anemia, unspecified; E11.9 Type 2 diabetes mellitus without complications; E78.00 Pure hypercholesterolemia, unspecified; G30.9 Alzheimer's disease, unspecified; F02.80 Dementia in other diseases classified elsewhere, unspecified severity, without behavioral disturbance, psychotic disturbance, mood disturbance, and anxiety; I10 Essential (primary) hypertension; Z79.4 Long term (current) use of insulin
CPT/HCPCS: 43760; 74000; 99284; A4606; Q9963; Z7610

== ENCOUNTER 2017-01-18 12:34 | Emergency (ER) | payer MEDICARE, OTHER ==
[~2017-01-18] VITALS: Ht 170.2 cm; Wt 74.8 kg
[2017-01-18] MEDS ORDERED: DIATR MEGLU/DIATRIZOATE SODIUM 30 ML BOTTLE (GASTROGRAPHIN) ONE (13:56)
--- NOTE | 2017-01-18 15:00 | NUR ---
TRANSPORT VERBALIZED UNDERSTANDING OF AFTERCARE INSTRUCTIONS.Patient discharged for transport home in stable condition. Written and verbal after care instructions given. Patient verbalizes understanding of instruction.
[2017-01-18 18:17] VITALS: BP 134/77
== END 2017-01-18 18:17 ==
LOC: ER 12:37
DX: K94.23 Gastrostomy malfunction (principal); I10 Essential (primary) hypertension; G30.9 Alzheimer's disease, unspecified; F02.80 Dementia in other diseases classified elsewhere, unspecified severity, without behavioral disturbance, psychotic disturbance, mood disturbance, and anxiety; E78.00 Pure hypercholesterolemia, unspecified; E11.9 Type 2 diabetes mellitus without complications; Z79.4 Long term (current) use of insulin; D64.9 Anemia, unspecified
CPT/HCPCS: 43760; 74000; 99284; A4606; Q9963; Z7610

== ENCOUNTER 2017-03-03 13:17 | Inpatient (IN) | payer MEDICARE, OTHER ==
[~2017-03-03] VITALS: Ht 172.7 cm; Wt 76.7 kg
[2017-03-03] MEDS ORDERED: IV NS 0.9% 1,000 ML BAG IV ONE (13:30)
[2017-03-03 13:45] LABS: BASOPHILS # (AUTO) 0.5 /CMM (0.0-0.2); BASOPHILS % (AUTO) 1.7 % (0.0-2.0); EOSINOPHILS % (AUTO) 0.1 % (0.0-6.0); HEMATOCRIT 32 % (33-45); HEMOGLOBIN 10.8 g/dL (11.5-14.8); LYMPHOCYTES # (AUTO) 2.5 /CMM (0.8-4.8); LYMPHOCYTES % (AUTO) 8.8 % (20.0-44.0); MEAN CORPUSCULAR HEMOGLOBIN 29 PG (26.0-33.0); MEAN CORPUSCULAR HGB CONC 33 g/dl (31.0-36.0); MEAN CORPUSCULAR VOLUME 86 fL (82-100); MONOCYTES # (AUTO) 1.8 /CMM (0.1-1.30); MONOCYTES % (AUTO) 6.3 % (2.0-12.0); NEUTROPHILS # (AUTO) 23.5 /CMM (1.8-8.9); NEUTROPHILS % (AUTO) 83.1 % (43.0-81.0); PLATELET COUNT (AUTO) 444 /CMM (150-450); RDW COEFFICIENT OF VARIATION 14.7 (11.5-15.0); RED BLOOD CELL COUNT(AUTO) 3.77 MIL/uL (4.0-5.2); WHITE BLOOD COUNT (AUTO) 28.3 K/uL (4.3-11.0)
[2017-03-03 13:56] LABS: CALCIUM, SERUM 8.9 mg/dL (8.5-10.1); CARBON DIOXIDE 26 mmol/L (21-32); CHLORIDE 108 mmol/L (98-107); CREATININE 1.2 mg/dL (0.6-1.3); GLUCOSE 159 mg/dL (74-106); POTASSIUM 4.2 mmol/L (3.5-5.1); SODIUM SERUM 141 mmol/L (136-145); UREA NITROGEN, BLOOD 61 mg/dL (7-18)
[2017-03-03 13:59] LABS: INR 1.07 (0.87-1.13); PROTHROMBIN TIME 11.1 SECS (9.5-12.7)
[2017-03-03] MEDS ORDERED: VANCOMYCIN 1 GM in IV D5W 250 ML IV ONE (14:00)
[2017-03-03] MEDS ORDERED: PIPERACILLIN /TAZOBACTAM 3.375 G in IV D5W 50 ML IV ONE (14:00)
[2017-03-03 14:01] LABS: ALBUMIN 2.2 g/dL (3.4-5.0); ALKALINE PHOSPHATASE 105 U/L (46-116); ASPARTATE AMINOTRANSFERASE 14 U/L (15-37); BILIRUBIN,DIRECT 0.1 mg/dL (0.0-0.2); BILIRUBIN,TOTAL 0.3 mg/dL (0.2-1.0); TOTAL PROTEIN, SERUM 7.3 g/dL (6.4-8.2)
[2017-03-03 14:04] LABS: TROPONIN I 0.027 ng/mL (0.00-0.056)
[2017-03-03 14:15] LABS: ALANINE AMINOTRANSFERASE < 4 U/L (12-78)
[2017-03-03 14:21] LABS: APPEARANCE,URINE Cloudy (CLEAR); BILIRUBIN,URINE Negative (NEGATIVE); BLOOD, URINE Large Ery/uL (NEGATIVE); COLOR,URINE Yellow (YELLOW); KETONES,URINE Negative (NEGATIVE); LEUKOCYTE ESTERASE ,URINE Moderate (NEGATIVE); NITRITE, URINE Negative (NEGATIVE); PH,URINE 5.5 (5.0-8.0); PROTEIN,URINE >=300 mg/dl (NEGATIVE); UGLUCOSE Negative (NEGATIVE); UROBILINOGEN,URINE 0.2 EU/dL (0.2)
[2017-03-03] MEDS ORDERED: ACETAMINOPHEN 325 MG TABLET PO PRN (14:30)
[2017-03-03] MEDS ORDERED: ONDANSETRON HCL/PF 4 MG/2 ML VIAL IVP PRN (14:30)
[2017-03-03] MEDS ORDERED: MAGNESIUM HYDROXIDE 30 ML UDC PO PRN (14:30)
[2017-03-03] MEDS ORDERED: VANCOMYCIN 0.75 GM in IV D5W 250 ML IV SCH (14:30)
[2017-03-03] MEDS ORDERED: MAG HYDROX/AL HYDROX/SIMETH 30 ML UDC PO PRN (14:30)
[2017-03-03] MEDS ORDERED: HYDROCODONE/APAP 5/325MG 1 EACH TABLET PO PRN (14:30)
[2017-03-03] MEDS ORDERED: Z GUARD REMEDY 2 OZ OINT TP PRN (14:30)
[2017-03-03 14:32] LABS: BACTERIA,URINE Few /HPF (None Seen); SQUAMOUS EPITHELIAL CELL,UR Few /HPF (None Seen); WBC,URINE TOO NUMEROUS TO COUN /HPF (0-3)
[2017-03-03] MEDS ORDERED: ACETAMINOPHEN 650 MG/20.3 ML UDC GT PRN (15:00)
[2017-03-03] MEDS ORDERED: IV NS 0.9% 1,000 ML IV PRN (15:00)
[2017-03-03] MEDS ORDERED: risperiDONE 1 MG TABLET PO PRN (15:00)
[2017-03-03] MEDS ORDERED: GLYTROL 1,000 ML BAG GT PRN (15:00)
[2017-03-03 15:38] VITALS: BP 101/44
[2017-03-03 16:00] VITALS: BP 150/85
[2017-03-03] MEDS: IV NS 0.9% 1,000 ML IV PRN (16:28)
[2017-03-03] MEDS ORDERED: FEE PK DOSING 1 MIN EA MC ONE (16:34)
[2017-03-03] MEDS: DOCUSATE SODIUM LIQ 100 MG/10 ML UDC GT SCH (17:47)
[2017-03-03] MEDS: CARBIDOPA/LEVODOPA 25/100 MG 1 UDTAB GT SCH (17:47)
[2017-03-03] MEDS: ENOXAPARIN SODIUM 40 MG/0.4 ML DISP.SYRIN SQ SCH (17:48)
[2017-03-03] MEDS: PIPERACILLIN /TAZOBACTAM 2.25 G in IV D5W 50 ML IV SCH ×2 (17:59→23:04)
[2017-03-03] MEDS ORDERED: PIPERACILLIN /TAZOBACTAM 4.5 G in IV D5W 50 ML IV SCH (18:00)
[2017-03-03 20:00] VITALS: BP 115/49
[2017-03-03] MEDS: ATORVASTATIN 10 MG TABLET GT SCH (21:59)
[2017-03-04] VITALS: BP 111/46
[2017-03-04 04:00] VITALS: BP 110/43
[2017-03-04] MEDS: IV NS 0.9% 1,000 ML IV PRN (05:00)
[2017-03-04] MEDS: PIPERACILLIN /TAZOBACTAM 2.25 G in IV D5W 50 ML IV SCH ×2 (05:00→13:10)
[2017-03-04 06:40] LABS: BASOPHILS # (AUTO) 0.1 /CMM (0.0-0.2); BASOPHILS % (AUTO) 0.5 % (0.0-2.0); EOSINOPHILS % (AUTO) 0.1 % (0.0-6.0); HEMATOCRIT 29 % (33-45); HEMOGLOBIN 9.5 g/dL (11.5-14.8); LYMPHOCYTES # (AUTO) 1.6 /CMM (0.8-4.8); LYMPHOCYTES % (AUTO) 6.1 % (20.0-44.0); MEAN CORPUSCULAR HEMOGLOBIN 29 PG (26.0-33.0); MEAN CORPUSCULAR HGB CONC 33 g/dl (31.0-36.0); MEAN CORPUSCULAR VOLUME 88 fL (82-100); MONOCYTES # (AUTO) 1.1 /CMM (0.1-1.30); NEUTROPHILS # (AUTO) 24.1 /CMM (1.8-8.9); NEUTROPHILS % (AUTO) 89.3 % (43.0-81.0); PLATELET COUNT (AUTO) 334 /CMM (150-450); RDW COEFFICIENT OF VARIATION 15.9 (11.5-15.0)
[2017-03-04 06:55] LABS: CALCIUM, SERUM 8.2 mg/dL (8.5-10.1); CARBON DIOXIDE 22 mmol/L (21-32); CHLORIDE 113 mmol/L (98-107); CREATININE 0.9 mg/dL (0.6-1.3); GLUCOSE 128 mg/dL (74-106); MAGNESIUM 1.9 mg/dL (1.8-2.4); PHOSPHORUS 2.9 mg/dL (2.5-4.9); POTASSIUM 3.9 mmol/L (3.5-5.1); SODIUM SERUM 146 mmol/L (136-145); UREA NITROGEN, BLOOD 40 mg/dL (7-18)
[2017-03-04 07:01] LABS: CHOLESTEROL 66 mg/dL (<200); HDL CHOLESTEROL 12 mg/dL (40-60); LDL 27 mg/dL (0-99); TRIGLYCERIDES 133 mg/dL (30-150)
[2017-03-04 08:00] VITALS: BP 101/45
[2017-03-04] MEDS ORDERED: BLOOD SUGAR DIAGNOSTIC 1 EACH STRIP IN SCH (09:00)
[2017-03-04] MEDS: CARBIDOPA/LEVODOPA 25/100 MG 1 UDTAB GT SCH ×3 (11:22→17:58)
[2017-03-04] MEDS: DOCUSATE SODIUM LIQ 100 MG/10 ML UDC GT SCH ×2 (11:22→17:58)
[2017-03-04] MEDS ORDERED: VANCOMYCIN 1 GM in IV D5W 250 ML IV SCH (15:00)
[2017-03-04 16:00] VITALS: BP 106/46
[2017-03-04] MEDS: ENOXAPARIN SODIUM 40 MG/0.4 ML DISP.SYRIN SQ SCH (16:06)
[2017-03-04] MEDS: LACTOBACILLUS RHAMNOSUS GG 1 EACH CAP.SPRINK PO SCH (17:58)
[2017-03-04] MEDS: IV 1/2NS 1000 ML 1,000 ML IV PRN (18:08)
[2017-03-04] MEDS: GLYTROL 1,000 ML BAG GT PRN (18:25)
[2017-03-04 20:00] VITALS: BP 102/60
[2017-03-04] MEDS ORDERED: DEXTROSE 50%-WATER 50 ML DISP.SYRIN IV PRN (21:00)
[2017-03-04] MEDS: ATORVASTATIN 10 MG TABLET GT SCH (22:19)
[2017-03-04] MEDS: BLOOD SUGAR DIAGNOSTIC 1 EACH STRIP IN SCH (23:48)
[2017-03-05] MEDS: INSULIN REGULAR, HUMAN 100 UNIT/ML 3 ML VIAL SQ PRN ×3 (00:22→12:11)
[2017-03-05] MEDS: GLYTROL 1,000 ML BAG GT PRN ×2 (03:16→20:29)
[2017-03-05] MEDS: BLOOD SUGAR DIAGNOSTIC 1 EACH STRIP IN SCH ×4 (05:31→23:48)
[2017-03-05 07:46] LABS: CALCIUM, SERUM 8.6 mg/dL (8.5-10.1); CARBON DIOXIDE 21 mmol/L (21-32); CHLORIDE 113 mmol/L (98-107); CREATININE 0.9 mg/dL (0.6-1.3); GLUCOSE 160 mg/dL (74-106); POTASSIUM 4.2 mmol/L (3.5-5.1); SODIUM SERUM 144 mmol/L (136-145); UREA NITROGEN, BLOOD 35 mg/dL (7-18)
[2017-03-05 08:00] VITALS: BP 120/70
[2017-03-05] MEDS: CARBIDOPA/LEVODOPA 25/100 MG 1 UDTAB GT SCH ×3 (08:26→17:38)
[2017-03-05] MEDS: DOCUSATE SODIUM LIQ 100 MG/10 ML UDC GT SCH ×2 (08:26→17:38)
[2017-03-05] MEDS: LACTOBACILLUS RHAMNOSUS GG 1 EACH CAP.SPRINK PO SCH ×2 (08:26→17:39)
[2017-03-05 09:00] VITALS: BP 120/70
[2017-03-05] MEDS: MEROPENEM 1 G in IV NS 0.9% 100 ML IV SCH (15:27)
[2017-03-05] MEDS: ENOXAPARIN SODIUM 40 MG/0.4 ML DISP.SYRIN SQ SCH (15:32)
[2017-03-05] MEDS: IV 1/2NS 1000 ML 1,000 ML IV PRN (15:38)
[2017-03-05 15:55] VITALS: BP 130/55
[2017-03-05 20:32] VITALS: BP 108/46
[2017-03-05] MEDS: ATORVASTATIN 10 MG TABLET GT SCH (21:57)
[2017-03-05 22:00] VITALS: BP 108/64
[2017-03-06] MEDS: MEROPENEM 1 G in IV NS 0.9% 100 ML IV SCH ×2 (03:03→15:17)
[2017-03-06] MEDS: BLOOD SUGAR DIAGNOSTIC 1 EACH STRIP IN SCH ×3 (05:10→16:30)
[2017-03-06 06:50] LABS: BASOPHILS # (AUTO) 0.1 /CMM (0.0-0.2); BASOPHILS % (AUTO) 0.3 % (0.0-2.0); EOSINOPHILS # (AUTO) 0.1 /CMM (0.0-0.7); EOSINOPHILS % (AUTO) 0.4 % (0.0-6.0); HEMATOCRIT 27 % (33-45); HEMOGLOBIN 8.7 g/dL (11.5-14.8); LYMPHOCYTES # (AUTO) 1.7 /CMM (0.8-4.8); LYMPHOCYTES % (AUTO) 10.3 % (20.0-44.0); MEAN CORPUSCULAR HEMOGLOBIN 29 PG (26.0-33.0); MEAN CORPUSCULAR HGB CONC 33 g/dl (31.0-36.0); MEAN CORPUSCULAR VOLUME 88 fL (82-100); MONOCYTES # (AUTO) 0.2 /CMM (0.1-1.30); NEUTROPHILS # (AUTO) 14.8 /CMM (1.8-8.9); PLATELET COUNT (AUTO) 342 /CMM (150-450); RED BLOOD CELL COUNT(AUTO) 3.04 MIL/uL (4.0-5.2); WHITE BLOOD COUNT (AUTO) 16.8 K/uL (4.3-11.0)
[2017-03-06 07:07] LABS: CALCIUM, SERUM 8.3 mg/dL (8.5-10.1); CARBON DIOXIDE 25 mmol/L (21-32); CHLORIDE 112 mmol/L (98-107); CREATININE 0.8 mg/dL (0.6-1.3); GLUCOSE 173 mg/dL (74-106); MAGNESIUM 1.8 mg/dL (1.8-2.4); PHOSPHORUS 2.1 mg/dL (2.5-4.9); SODIUM SERUM 143 mmol/L (136-145); UREA NITROGEN, BLOOD 25 mg/dL (7-18)
[2017-03-06 08:00] VITALS: BP 116/55
[2017-03-06 08:51] LABS: BAND % (MANUAL) 6 % (0.0-5.0); EOSINOPHILS % (MANUAL) 3 % (0-4); LYMPHOCYTES % (MANUAL) 10 % (16-48); MONOCYTES % (MANUAL) 3 % (0-11.0); NEUTROPHILS % (MANUAL) 78 (42-76)
[2017-03-06] MEDS: LACTOBACILLUS RHAMNOSUS GG 1 EACH CAP.SPRINK PO SCH ×2 (08:53→16:31)
[2017-03-06] MEDS: DOCUSATE SODIUM LIQ 100 MG/10 ML UDC GT SCH ×2 (08:53→16:31)
[2017-03-06] MEDS: CARBIDOPA/LEVODOPA 25/100 MG 1 UDTAB GT SCH ×3 (08:53→16:31)
[2017-03-06 09:00] VITALS: BP 116/57
[2017-03-06] MEDS ORDERED: ASCORBIC ACID 500 MG TABLET GT SCH (09:00)
[2017-03-06] MEDS ORDERED: MULTIVITAMINS,THERAGRAN 1 UDTAB TABLET GT SCH (09:00)
[2017-03-06] MEDS: IV 1/2NS 1000 ML 1,000 ML IV PRN (12:30)
[2017-03-06] MEDS ORDERED: NEUTRA PHOS 1 POWD.PACKET NG ONE (13:00)
[2017-03-06] MEDS ORDERED: MERO1PIG IV (14:00)
[2017-03-06] MEDS ORDERED: LACT1CAP72 GT (14:00)
[2017-03-06] MEDS: ENOXAPARIN SODIUM 40 MG/0.4 ML DISP.SYRIN SQ SCH (15:19)
== END 2017-03-06 17:35 | DRG 872 ==
LOC: ER 13:20 → TELE 15:11 → MED 03-04 11:01
PROVIDERS: ADMIT Internal Medicine; ATTEND Internal Medicine
PROC: 05H533Z Insertion of Infusion Device into Right Subclavian Vein, Percutaneous Approach (ICD-10-PCS; principal; 2017-03-05)
PROC: B546ZZA Ultrasonography of Right Subclavian Vein, Guidance (ICD-10-PCS; 2017-03-05)
DX: A41.9 Sepsis, unspecified organism (principal); L89.152 Pressure ulcer of sacral region, stage 2; L89.319 Pressure ulcer of right buttock, unspecified stage; E87.0 Hyperosmolality and hypernatremia; I11.0 Hypertensive heart disease with heart failure; G20 Parkinson's disease; L89.329 Pressure ulcer of left buttock, unspecified stage; N39.0 Urinary tract infection, site not specified; I50.9 Heart failure, unspecified; E11.9 Type 2 diabetes mellitus without complications; B96.20 Unspecified Escherichia coli [E. coli] as the cause of diseases classified elsewhere; D63.8 Anemia in other chronic diseases classified elsewhere; Z93.1 Gastrostomy status; R13.10 Dysphagia, unspecified; G30.9 Alzheimer's disease, unspecified; F02.80 Dementia in other diseases classified elsewhere, unspecified severity, without behavioral disturbance, psychotic disturbance, mood disturbance, and anxiety; E78.5 Hyperlipidemia, unspecified; I25.10 Atherosclerotic heart disease of native coronary artery without angina pectoris; E86.0 Dehydration; K21.9 Gastro-esophageal reflux disease without esophagitis; M19.90 Unspecified osteoarthritis, unspecified site; Z79.4 Long term (current) use of insulin; Z79.899 Other long term (current) drug therapy; B96.89 Other specified bacterial agents as the cause of diseases classified elsewhere; R09.89 Other specified symptoms and signs involving the circulatory and respiratory systems; I25.2 Old myocardial infarction; F32.9 Major depressive disorder, single episode, unspecified
CPT/HCPCS: 36415; 71045-TC; 80048-TC; 80061-TC; 80076-TC; 80202-TC; 81000-TC; 82962-TC; 83605-TC; 83735-TC; 84100-TC; 84484-TC; 85025-TC; 85730-TC; 86850-TC; 87040-TC; 87081-TC; 87086-TC; 87186-TC; 87400; A4606; J1650; J1815; J2185; J2543; J3370; J3490; J7030; J7060; Z7610

== ENCOUNTER 2017-03-20 20:59 | Inpatient (IN) | payer MEDICARE, OTHER ==
[~2017-03-20] VITALS: Ht 175.3 cm; Wt 90.3 kg
[~2017-03-20 20:59] MED LIST changes: -HEPA500014 SQ; +LACT1CAP72 GT; +MERO1PIG IV
--- NOTE | 2017-03-20 21:16 | NUR ---
PT TRAV SAUNDERS FROM [facility] FOR ABDNORMAL LAB; "WBC 21; BUN 97; TEMP 104". PT AAOX0. RESP EVEN AND NON LABORED. SKIN HOT TO TOUCH. G-TUBE IN PLACE. PT BROUGHT FROM FACILITY WITH BRANDT BOBO 2L. AWAITING MD FOR EVAL.
[2017-03-20] MEDS ORDERED: AMIN30LI27 GT (21:49)
[2017-03-20] MEDS ORDERED: ENOX40DI SQ (21:49)
[2017-03-20] MEDS ORDERED: MULT9LIQ GT (21:49)
[2017-03-20] MEDS ORDERED: MAG30ORA GT (21:49)
[2017-03-20] MEDS ORDERED: L.AC460C GT (21:49)
[2017-03-20] MEDS ORDERED: HYDR-552 GT (21:49)
[2017-03-20] MEDS ORDERED: ACETAMINOPHEN 650 MG/SUPP.RECT RC ONE ×2 (22:00→22:07)
[2017-03-20] MEDS ORDERED: ASPIRIN 300 MG/SUPP.RECT RC ONE (22:00)
[2017-03-20 22:12] LABS: BASOPHILS # (AUTO) 0.1 /CMM (0.0-0.2); BASOPHILS % (AUTO) 0.2 % (0.0-2.0); HEMATOCRIT 35 % (33-45); HEMOGLOBIN 11.4 g/dL (11.5-14.8); LYMPHOCYTES # (AUTO) 5.4 /CMM (0.8-4.8); LYMPHOCYTES % (AUTO) 16.9 % (20.0-44.0); MEAN CORPUSCULAR HEMOGLOBIN 28 PG (26.0-33.0); MEAN CORPUSCULAR HGB CONC 32 g/dl (31.0-36.0); MEAN CORPUSCULAR VOLUME 87 fL (82-100); MONOCYTES # (AUTO) 1.5 /CMM (0.1-1.30); MONOCYTES % (AUTO) 4.7 % (2.0-12.0); NEUTROPHILS # (AUTO) 24.7 /CMM (1.8-8.9); NEUTROPHILS % (AUTO) 78.2 % (43.0-81.0); PLATELET COUNT (AUTO) 443 /CMM (150-450); RDW COEFFICIENT OF VARIATION 15.9 (11.5-15.0); RED BLOOD CELL COUNT(AUTO) 4.07 MIL/uL (4.0-5.2)
--- NOTE | 2017-03-20 22:14 | NUR ---
RADIOLOGY BEDSIDE FOR X-RAY
--- NOTE | 2017-03-20 22:14 | NUR ---
EMT BEDSIDE FOR EKG
[2017-03-20 22:16] LABS: WHITE BLOOD COUNT (AUTO) 31.6 K/uL (4.3-11.0)
[2017-03-20 22:19] LABS: TROPONIN I 0.227 ng/mL (0.00-0.056)
[2017-03-20 22:23] LABS: ALANINE AMINOTRANSFERASE 21 U/L (12-78); ALBUMIN 2.7 g/dL (3.4-5.0); ALKALINE PHOSPHATASE 93 U/L (46-116); ASPARTATE AMINOTRANSFERASE 35 U/L (15-37); BILIRUBIN,DIRECT 0.1 mg/dL (0.0-0.2); BILIRUBIN,TOTAL 0.3 mg/dL (0.2-1.0); CALCIUM, SERUM 9.3 mg/dL (8.5-10.1); CARBON DIOXIDE 32 mmol/L (21-32); CHLORIDE 109 mmol/L (98-107); CREATININE 1.8 mg/dL (0.6-1.3); GLUCOSE 208 mg/dL (74-106); SODIUM SERUM 150 mmol/L (136-145); TOTAL PROTEIN, SERUM 9.2 g/dL (6.4-8.2)
[2017-03-20 22:26] LABS: UREA NITROGEN, BLOOD 111 mg/dL (7-18)
[2017-03-20 22:30] LABS: APPEARANCE,URINE CLOUDY (CLEAR); BILIRUBIN,URINE NEGATIVE (NEGATIVE); BLOOD, URINE 3+ Ery/uL (NEGATIVE); COLOR,URINE DARK YELLO (YELLOW); KETONES,URINE NEGATIVE (NEGATIVE); LEUKOCYTE ESTERASE ,URINE 3+ (NEGATIVE); NITRITE, URINE POSITIVE (NEGATIVE); PH,URINE 8.5 (5.0-8.0); PROTEIN,URINE 3+ mg/dl (NEGATIVE); UGLUCOSE NEGATIVE (NEGATIVE); UROBILINOGEN,URINE 0.2 EU/dL (0.2)
[2017-03-20] MEDS ORDERED: VANCOMYCIN 1 GM in IV D5W 250 ML IV ONE (22:30)
[2017-03-20] MEDS ORDERED: VANCOMYCIN 1 GM VIAL ONE ×2 (22:30→22:51)
[2017-03-20] MEDS ORDERED: PIPERACILLIN /TAZOBACTAM 3.375 G VIAL IV ONE (22:30)
[2017-03-20] MEDS ORDERED: IV NS 0.9% 1,000 ML BAG IV ONE (22:30)
[2017-03-20] MEDS ORDERED: PIPERACILLIN /TAZOBACTAM 3.375 G in IV D5W 50 ML IV ONE (22:30)
--- NOTE | 2017-03-20 22:30 | NUR ---
DAUGHTER BEDSIDE WITH PT. PT RESTING IN BED WITH EVEN AND NON LABORED RESP.
[2017-03-20 22:44] LABS: RBC,URINE 21-50 /HPF (0-2)
--- NOTE | 2017-03-20 22:45 | NUR ---
Patient is resting in bed with eyes open.VSS and resp even and non labored
[2017-03-20 22:46] LABS: WBC,URINE 51-80 /HPF (0-3)
[2017-03-20 22:47] LABS: BACTERIA,URINE Moderate /HPF (None Seen); MUCUS,URINE Few /LPF (None Seen); SQUAMOUS EPITHELIAL CELL,UR Few /HPF (None Seen)
[2017-03-20 22:47] LABS: INR 1.04 (0.87-1.13)
[2017-03-20 23:02] LABS: BAND % (MANUAL) 11 % (0.0-5.0); LYMPHOCYTES % (MANUAL) 16 % (16-48); MONOCYTES % (MANUAL) 3 % (0-11.0); NEUTROPHILS % (MANUAL) 70 (42-76)
[2017-03-20] MEDS ORDERED: IV D5W 1,000 ML IV PRN (23:28)
[2017-03-20] MEDS ORDERED: MAG HYDROX/AL HYDROX/SIMETH 30 ML UDC GT PRN (23:30)
[2017-03-20] MEDS ORDERED: MORPHINE SULFATE INJ 2 MG/ML DISP.SYRIN IV PRN (23:30)
[2017-03-20] MEDS ORDERED: MAG HYDROX/AL HYDROX/SIMETH 30 ML UDC PO PRN (23:30)
[2017-03-20] MEDS ORDERED: MAGNESIUM HYDROXIDE 30 ML UDC PO PRN (23:30)
[2017-03-20] MEDS ORDERED: HYDROCODONE/APAP 5/325MG 1 EACH TABLET PO PRN (23:30)
[2017-03-20] MEDS ORDERED: GLYTROL 1,000 ML BAG GT SCH (23:30)
[2017-03-20] MEDS ORDERED: ONDANSETRON HCL/PF 4 MG/2 ML VIAL IVP PRN (23:30)
--- NOTE | 2017-03-20 23:49 | NUR ---
ER AT BEDSIDE TALKING TO PT FAMILY MEMBERS.
[2017-03-21] VITALS: BP 103/49
[2017-03-21] MEDS ORDERED: ALBUTEROL FS 2.5 MG/3 ML VIAL.NEB NEB PRN
[2017-03-21] MEDS ORDERED: DEXTROSE 50%-WATER 50 ML DISP.SYRIN IV PRN
--- NOTE | 2017-03-21 00:17 | NUR ---
GAVE REPORT TO TRADE EMBALMERALYX VALENZUELA FOR CATRACHITA
--- NOTE | 2017-03-21 00:25 | NUR ---
TELERN RECEIVED FROM ER VIA [facility] 87Y/O FEMALE WITH DX OF SEPSIS. NO VERBAL RESPONSE, DEEPLY ASLEEP AROUSABLE TO DEEP PAIN ONLY. ASSESSED PER FLOW SHEET, EXCORIATED SACRAL SEEN PICTURES TAKEN . OTHER SKIN ISSUES DOCUMENTED ON BODY ASSESSMENT. NO RESPIRATORY DISTRESS, LOW GRADE TEMEP OF 99.9. INCONTINENET, HAD STOOL LOOSE BROWNISH ON DIAPER. PARTIALLY BED BATHED. 02 AT 3 L VIA ME. AWAITING FOR MEDS.
[2017-03-21 00:30] VITALS: BP 104/43
[2017-03-21] MEDS ORDERED: INSULIN REGULAR, HUMAN 100 UNIT/ML 3 ML VIAL ONE (01:16)
[2017-03-21] MEDS ORDERED: VANCOMYCIN HCL 125 MG/2.5 ML ORAL.SUSP ONE (01:19)
[2017-03-21] MEDS: VANCOMYCIN HCL 125 MG/2.5 ML ORAL.SUSP PO SCH ×4 (01:35→17:32)
[2017-03-21] MEDS: BLOOD SUGAR DIAGNOSTIC 1 EACH STRIP IN SCH ×6 (01:36→21:00)
[2017-03-21] MEDS: INSULIN REGULAR, HUMAN 100 UNIT/ML 3 ML VIAL SQ PRN ×6 (01:38→22:29)
[2017-03-21] MEDS ORDERED: IV NS 0.9% 1,000 ML BAG IV SCH (03:00)
--- NOTE | 2017-03-21 03:00 | NUR ---
TELERN STARTED ON DUE MEDS VIA GT AND GLYTROL FEEDING POST ACCUCHECK. BS WAS 207 COVERED WITH 6 UNITS OF REGULAR INSULIN SQ. REPOSITIONED FOR COMFORT.
[2017-03-21 04:00] VITALS: BP 116/64
[2017-03-21] MEDS ORDERED: PIPERACILLIN /TAZOBACTAM 4.5 G in IV D5W 50 ML IV SCH (05:00)
--- NOTE | 2017-03-21 05:00 | NUR ---
TELERN BS 216 COVERED WITH 6 UNITS REG INS SQ PER SLIDING SCALE.
[2017-03-21] MEDS ORDERED: PIPERACILLIN /TAZOBACTAM 3.375 G VIAL IV ONE (05:14)
[2017-03-21] MEDS ORDERED: PIPERACILLIN /TAZOBACTAM 2.25 G VIAL IV ONE (05:59)
--- NOTE | 2017-03-21 06:20 | NUR ---
TELERN MORE RESPONSIVE THIS TIME. TEMP 100s. due meds administered
[2017-03-21 07:30] LABS: BASOPHILS # (AUTO) 0.1 /CMM (0.0-0.2); BASOPHILS % (AUTO) 0.2 % (0.0-2.0); HEMATOCRIT 30 % (33-45); HEMOGLOBIN 9.6 g/dL (11.5-14.8); LYMPHOCYTES # (AUTO) 3.5 /CMM (0.8-4.8); LYMPHOCYTES % (AUTO) 11.3 % (20.0-44.0); MEAN CORPUSCULAR HEMOGLOBIN 28 PG (26.0-33.0); MEAN CORPUSCULAR HGB CONC 32 g/dl (31.0-36.0); MEAN CORPUSCULAR VOLUME 87 fL (82-100); MONOCYTES # (AUTO) 1.1 /CMM (0.1-1.30); MONOCYTES % (AUTO) 3.6 % (2.0-12.0); NEUTROPHILS # (AUTO) 26.1 /CMM (1.8-8.9); NEUTROPHILS % (AUTO) 84.9 % (43.0-81.0); PLATELET COUNT (AUTO) 303 /CMM (150-450); RDW COEFFICIENT OF VARIATION 16.2 (11.5-15.0); RED BLOOD CELL COUNT(AUTO) 3.42 MIL/uL (4.0-5.2)
[2017-03-21 07:38] LABS: TROPONIN I 0.157 ng/mL (0.00-0.056)
[2017-03-21 07:43] LABS: CARBON DIOXIDE 31 mmol/L (21-32); CHLORIDE 114 mmol/L (98-107); CREATININE 1.6 mg/dL (0.6-1.3); GLUCOSE 234 mg/dL (74-106); MAGNESIUM 2.7 mg/dL (1.8-2.4); PHOSPHORUS 3.1 mg/dL (2.5-4.9); POTASSIUM 4.2 mmol/L (3.5-5.1); SODIUM SERUM 152 mmol/L (136-145)
[2017-03-21 07:44] LABS: UREA NITROGEN, BLOOD 104 mg/dL (7-18)
[2017-03-21 07:52] LABS: WHITE BLOOD COUNT (AUTO) 30.8 K/uL (4.3-11.0)
[2017-03-21 08:00] VITALS: BP 111/58
--- NOTE | 2017-03-21 08:11 | NUR ---
BAND SINGER OPENING NOTE RECEIVED BEDSIDE SBAR REPORT ON PATIENT. PATIENT IS AWAKE WITH EYES OPEN, NON RESPONSIVE TO SPEECH AND TOUCH, BUT RESPONSIVE TO LIGHT PAIN. NO S/S OF PAIN/DISCOMFORT AT THIS TIME. PATIENT IS IN BED. BED IS LOCKED IN LOWEST POSITION, SIDE RAILS UP X3, BED ALARM IS ON. YRN LIGHT WITHIN REACH. EDUCATED TO CALL FOR ASSISTANCE USING THE CALL LIGHT. PATIENT'S ROOM IS CLOSE NURSES STATION FOR VISUAL ASSESSMENT. ALL NEEDS ARE MET AT THIS TIME, WILL CONTINUE TO ASSESS/MONITOR THROUGHOUT THE SHIFT.
--- NOTE | 2017-03-21 08:35 | NUR ---
DOCUMENTED PREVIOUSLY NON-ADMINISTERED MEDICATIONS NON-ADMIN TO RID OF RED REMINDER IN THE EMAR.
--- NOTE | 2017-03-21 08:55 | NUR ---
PATIENT PRESENTS WITH FEVER. TYLENOL PRN ADMINISTERED. COOLING MEASURES APPLIED. DR CHAUHAN INFORMED. NO NEW ORDERS RECEIVED. WILL CONTINUE TO MONITOR.
[2017-03-21] MEDS ORDERED: MORPHINE SULFATE INJ 4 MG/ML DISP.SYRIN IV PRN (09:00)
[2017-03-21 09:43] LABS: THYROID STIMULATING HORMONE 1.664 uIU/mL (0.358-3.74)
[2017-03-21] MEDS: PROSOURCE / PROSTAT (PYXIS) 30 ML UDC GT SCH ×2 (09:52→17:32)
[2017-03-21] MEDS: CARBIDOPA/LEVODOPA 25/100 MG 1 UDTAB GT SCH ×3 (09:52→17:28)
[2017-03-21] MEDS: ZINC SULFATE 220 MG CAPSULE GT SCH (09:53)
[2017-03-21] MEDS: SERTRALINE HCL 50 MG TABLET GT SCH (09:53)
[2017-03-21] MEDS: risperiDONE 1 MG TABLET PO SCH (09:55)
[2017-03-21] MEDS: LACTOBACILLUS RHAMNOSUS GG 1 EACH CAP.SPRINK GT SCH ×2 (09:56→17:28)
[2017-03-21 09:57] LABS: BAND % (MANUAL) 6 % (0.0-5.0); LYMPHOCYTES % (MANUAL) 20 % (16-48); MONOCYTES % (MANUAL) 4 % (0-11.0); NEUTROPHILS % (MANUAL) 70 (42-76)
[2017-03-21] MEDS: ENOXAPARIN SODIUM 30 MG/0.3 ML DISP.SYRIN SQ SCH (09:57)
[2017-03-21] MEDS: DOCUSATE SODIUM LIQ 100 MG/10 ML UDC GT SCH ×2 (10:06→17:28)
[2017-03-21] MEDS: Z GUARD REMEDY 2 OZ OINT TP PRN ×2 (10:17→17:36)
[2017-03-21] MEDS: PIPERACILLIN /TAZOBACTAM 2.25 G in IV D5W 50 ML IV SCH ×2 (13:23→17:33)
[2017-03-21 16:00] VITALS: BP_SYST 125; BP_SYST 138; BP_DIAS 100; BP_DIAS 88
[2017-03-21] MEDS: GLYTROL 1,000 ML BAG GT SCH (17:53)
[2017-03-21] MEDS: IV NS 0.9% 1,000 ML IV PRN (17:55)
[2017-03-21] MEDS: ACETAMINOPHEN 325 MG TABLET PO PRN (17:56)
--- NOTE | 2017-03-21 18:05 | NUR ---
TEMPERATURE 100.1. TYLENOL ADMINISTERED. DR CHAUHAN NOTIFIED.
--- NOTE | 2017-03-21 19:09 | NUR ---
MS RN CLOSING NOTE PATIENT IS AWAKE WITH EYES OPEN, NON RESPONSIVE TO SPEECH AND TOUCH, BUT RESPONSIVE TO LIGHT PAIN. NO S/S OF PAIN/DISCOMFORT AT THIS TIME. PATIENT IS IN BED. BED IS LOCKED IN LOWEST POSITION, SIDE RAILS UP X3, BED ALARM IS ON. YRN LIGHT WITHIN REACH. EDUCATED TO CALL FOR ASSISTANCE USING THE CALL LIGHT. PATIENT'S ROOM IS CLOSE NURSES STATION FOR VISUAL ASSESSMENT. PATIENT REPOSITIONED EVERY 2 HRS. ALL DUE MEDICATIONS ADMINISTERED. CARE PLAN DISCUSSED WITH THE DAUGHTER AT THE BEDSIDE. ALL NEEDS ARE MET AT THIS TIME, WILL ENDORSE TO THE DENTAL TECHNICIAN FOR CATRACHITA.
--- NOTE | 2017-03-21 19:35 | NUR ---
MSRN SLEEPING APPEARS COMFORTABLE. PRESNT IVF AND GT FEEDINGS TOLERATED WELL. TO CONTINUE
[2017-03-21 20:37] VITALS: BP 106/49
[2017-03-21] MEDS ORDERED: FEE PK DOSING 1 MIN EA MC ONE (20:48)
[2017-03-21] MEDS ORDERED: DOSING PER PHARMACY-AMIKACI IV XX PRN (21:00)
[2017-03-21] MEDS ORDERED: ATORVASTATIN 10 MG TABLET GT SCH (22:00)
[2017-03-21] MEDS: MEROPENEM 1 G in IV NS 0.9% 100 ML IV SCH (22:27)
[2017-03-21] MEDS: AMIKACIN 500 MG in IV D5W 100 ML IV SCH (22:35)
[2017-03-22] VITALS (50 sets, daily range): BP systolic 84–120; BP diastolic 33–48
[2017-03-22] MEDS: BLOOD SUGAR DIAGNOSTIC 1 EACH STRIP IN SCH ×6 (01:35→21:21)
[2017-03-22] MEDS: VANCOMYCIN HCL 125 MG/2.5 ML ORAL.SUSP PO SCH ×5 (01:35→23:15)
[2017-03-22] MEDS: INSULIN REGULAR, HUMAN 100 UNIT/ML 3 ML VIAL SQ PRN ×6 (01:40→21:29)
[2017-03-22] MEDS: ACETAMINOPHEN 325 MG TABLET PO PRN ×3 (01:52→21:48)
--- NOTE | 2017-03-22 02:44 | NUR ---
MSRN LARGE FORMED STOOLS, SPECIMEN SENT FOR OB. TOTAL BED BATHED, ON AND OFF LOW GRADE TEMP. REPOSITIONED FOR COMFORT, GT FEEDINGS TOLERATED. BS STILL Q 4 HRS WITH INSULIN COVERAGE.
--- NOTE | 2017-03-22 04:00 | NUR ---
MSRN HAD LARGE BM FORMED STOOLS, SENT FOR OCCULT BLOOD. PENDING.
[2017-03-22] MEDS: GLYTROL 1,000 ML BAG GT SCH (06:11)
--- NOTE | 2017-03-22 07:10 | NUR ---
MS RN OPENING NOTE RECEIVED BEDSIDE SBAR REPORT ON PATIENT. PATIENT IS ASLEEP, NON RESPONSIVE TO SPEECH AND TOUCH, BUT RESPONSIVE TO LIGHT PAIN. NO S/S OF PAIN/DISCOMFORT AT THIS TIME. PATIENT IS IN BED. BED IS LOCKED IN LOWEST POSITION, SIDE RAILS UP X3, BED ALARM IS ON. YRN LIGHT WITHIN REACH. EDUCATED TO CALL FOR ASSISTANCE USING THE CALL LIGHT. PATIENT'S ROOM IS CLOSE NURSES STATION FOR VISUAL ASSESSMENT. ALL NEEDS ARE MET AT THIS TIME, WILL CONTINUE TO ASSESS/MONITOR THROUGHOUT THE SHIFT.
[2017-03-22] MEDS: LACTOBACILLUS RHAMNOSUS GG 1 EACH CAP.SPRINK GT SCH ×2 (08:38→16:37)
[2017-03-22] MEDS: ZINC SULFATE 220 MG CAPSULE GT SCH (08:38)
[2017-03-22] MEDS: DOCUSATE SODIUM LIQ 100 MG/10 ML UDC GT SCH ×2 (08:38→16:37)
[2017-03-22] MEDS: PROSOURCE / PROSTAT (PYXIS) 30 ML UDC GT SCH ×2 (08:39→16:37)
[2017-03-22] MEDS: risperiDONE 1 MG TABLET PO SCH (08:39)
[2017-03-22] MEDS: SERTRALINE HCL 50 MG TABLET GT SCH (08:39)
[2017-03-22] MEDS: CARBIDOPA/LEVODOPA 25/100 MG 1 UDTAB GT SCH ×3 (08:39→16:37)
--- NOTE | 2017-03-22 08:39 | NUR ---
Patient presents with fever of 101.8F. temperature re-checked and confirmed. Tylenol administered as prescribed. Cooling measures applied. Patient uncovered, ice applied to armpits/between the legs, room temperature decreased. Will continue to assess/monitor.
[2017-03-22] MEDS: ENOXAPARIN SODIUM 30 MG/0.3 ML DISP.SYRIN SQ SCH (08:43)
[2017-03-22 08:49] LABS: EOSINOPHILS % (AUTO) 0.1 % (0.0-6.0); HEMATOCRIT 28 % (33-45); HEMOGLOBIN 8.9 g/dL (11.5-14.8); MEAN CORPUSCULAR HEMOGLOBIN 28 PG (26.0-33.0); MEAN CORPUSCULAR HGB CONC 32 g/dl (31.0-36.0); MEAN CORPUSCULAR VOLUME 87 fL (82-100); MONOCYTES # (AUTO) 1.1 /CMM (0.1-1.30); MONOCYTES % (AUTO) 3.3 % (2.0-12.0); NEUTROPHILS # (AUTO) 29.3 /CMM (1.8-8.9); NEUTROPHILS % (AUTO) 87.6 % (43.0-81.0); PLATELET COUNT (AUTO) 243 /CMM (150-450); RDW COEFFICIENT OF VARIATION 16.1 (11.5-15.0); RED BLOOD CELL COUNT(AUTO) 3.16 MIL/uL (4.0-5.2)
--- NOTE | 2017-03-22 08:55 | NUR ---
WBC LEVEL ELEVATED AT 33.5 REPORTED AT 0855 BY LUCILA PARIS. WILL NOTIFY
[2017-03-22] MEDS: Z GUARD REMEDY 2 OZ OINT TP PRN (08:56)
[2017-03-22 08:57] LABS: WHITE BLOOD COUNT (AUTO) 33.5 K/uL (4.3-11.0)
[2017-03-22 09:09] LABS: ALANINE AMINOTRANSFERASE 23 U/L (12-78); ALBUMIN 1.9 g/dL (3.4-5.0); ALKALINE PHOSPHATASE 70 U/L (46-116); ASPARTATE AMINOTRANSFERASE 31 U/L (15-37); BILIRUBIN,TOTAL 0.2 mg/dL (0.2-1.0); CALCIUM, SERUM 7.8 mg/dL (8.5-10.1); CARBON DIOXIDE 28 mmol/L (21-32); CHLORIDE 114 mmol/L (98-107); CREATININE 1.5 mg/dL (0.6-1.3); GLUCOSE 199 mg/dL (74-106); MAGNESIUM 2.6 mg/dL (1.8-2.4); PHOSPHORUS 2.2 mg/dL (2.5-4.9); POTASSIUM 4.6 mmol/L (3.5-5.1); SODIUM SERUM 149 mmol/L (136-145); TOTAL PROTEIN, SERUM 6.9 g/dL (6.4-8.2)
[2017-03-22 09:12] LABS: UREA NITROGEN, BLOOD 110 mg/dL (7-18)
--- NOTE | 2017-03-22 09:23 | NUR ---
Patient's bp 85/46. Temperature increased to 102.2
--- NOTE | 2017-03-22 09:28 | NUR ---
Aries Kilgore to report patient's VS to the doctor
--- NOTE | 2017-03-22 09:32 | NUR ---
CALLED [facility] ASKED LEFT A MESSAGE FOR DR. CHAUHAN
--- NOTE | 2017-03-22 09:34 | NUR ---
SPOKE TO DR CHAUHAN. REPORTED PATIENT'S VS AND LAB VALUES. RECEIVED TELEPHONE ORDER FOR REPEAD BLOOD CX DRAW, NS 1L BOLUS, ANS ASPIRIN 325 MG PRN. READ BACK AND VERIFIED. WILL FOLLOW ORDERS RECEIVED.
[2017-03-22 09:43] LABS: BAND % (MANUAL) 2 % (0.0-5.0); LYMPHOCYTES % (MANUAL) 13 % (16-48); MONOCYTES % (MANUAL) 5 % (0-11.0); NEUTROPHILS % (MANUAL) 80 (42-76)
--- NOTE | 2017-03-22 09:49 | NUR ---
CALLED DAUGHTER SPENCER. TOLD ABOUT PATIENT'S CONDITION. DAUGHTER STATED SHE IS ON HER WAY.
--- NOTE | 2017-03-22 09:55 | NUR ---
NEW ORDER WAS PLACED FOR STAT BLOOD CX. HOLDING ANTIBIOTIC UNTILL AFTER THE BLOOD CULTURE IS DRAWN.
[2017-03-22] MEDS ORDERED: ASPIRIN 325 MG TABLET PO PRN (10:00)
[2017-03-22] MEDS ORDERED: IV NS 0.9% 1,000 ML IV PRN (10:00)
[2017-03-22 10:17] LABS: *SPE A/G RATIO 0.6 (0.7-1.7); *SPE ALBUMIN 2.2 g/dL (2.9-4.4); *SPE ALPHA-1-GLOBULIN 0.3 g/dL (0.0-0.4); *SPE ALPHA-2-GLOBULIN 1.3 g/dL (0.4-1.0); *SPE BETA GLOBULIN 0.8 g/dL (0.7-1.3); *SPE GLOBULIN, TOTAL 3.7 g/dL (2.2-3.9); *SPE M-SPIKE Not Observed g/dL (Not Observed); *SPEGAMMA GLOBULIN 1.3 g/dL (0.4-1.8)
--- NOTE | 2017-03-22 10:18 | NUR ---
FAMILY AT THE BEDSIDE. PATIENT'S TEMPERATURE DECREASED TO 100.2. BLOOD PRESSURE 95/49
--- NOTE | 2017-03-22 10:53 | NUR ---
DR CHAUHAN AT THE BEDSIDE. PER DR. CHAUHAN PATIENT TO BE TRANSFERRED TO ICU FOR VASOPRESSOR ADMINISTRATION. CHARGE NURSE NOTIFIED. LASER SET UP OPERATOR NOTIFIED. AWAITING FOR ICU BED.
[2017-03-22] MEDS ORDERED: NOREPINEPHRINE 8 MG in IV D5W 500 ML IV PRN ×2 (11:00→13:30)
--- NOTE | 2017-03-22 11:04 | NUR ---
PATIENT WILL BE TRANSFERRED TO ICU TO ROOM 254. CALLED FOR SBAR REPORT. ACCEPTING NURSE IS TRANSFERRING PATIENT PER PAYROLL LEAD. WILL CALL BACK.
[2017-03-22] MEDS ORDERED: HYDROMORPHONE INJ 0.5 MG/0.5 ML SYRINGE IV PRN (11:30)
--- NOTE | 2017-03-22 11:56 | NUR ---
BEDSIDE SBAR REPORT GIVEN TO АЛЕКСАНДР RN IN ICU.
--- NOTE | 2017-03-22 12:00 | NUR ---
PATIENT TRANSFERRED FROM TELE UNIT DUE TO HYPOTENSION. PATIENT SBP ON ARRIVAL AT 80'S. SR 70'S. PATIENT OPENS EYES TO NAME AND TACTILE STIMULI. TO START ON LEVOPHED DRIP PER DR. TIEN HERRMANN.
--- NOTE | 2017-03-22 12:30 | NUR ---
ONGOING TITRATION OF LEVOPHED DRIP PER PROTOCOL. PATIENT SEEN BY DR. JACOBSEN SPOKE TO FAMILY AT BEDSIDE RE: CONDITION AND PLAN OF CARE.
[2017-03-22] MEDS: MEROPENEM 1 G in IV NS 0.9% 100 ML IV SCH ×2 (12:47→21:21)
[2017-03-22] MEDS ORDERED: NEUTRA PHOS 1 POWD.PACKET NG ONE (14:00)
--- NOTE | 2017-03-22 14:30 | NUR ---
SBP REMAINS ON THE 90'S. LEVOPHED TITRATED UP TO 12 MCG/MIN TO KEEP SBP >100.
[2017-03-22] MEDS: IV NS 0.9% 1,000 ML IV PRN (14:42)
--- NOTE | 2017-03-22 16:00 | NUR ---
REMAINS ON VASOPRESSOR-PICC LINE ORDERED. PATIENT DAUGHTER SIGNED CONSENT.
[2017-03-22] MEDS: FLUCONAZOLE IN NS 100 MG in PREMIX 1 EA IV SCH ×2 (17:22)
[2017-03-22] MEDS: LINEZOLID RTU BAG 600 MG in PREMIX 1 EA IV SCH (18:20)
--- NOTE | 2017-03-22 20:00 | NUR ---
SHIFT NURSE MANAGER NOTES RECEIVED PT IN BED, LETHARGIC, DIFFICULTLY AROUSABLE WITH NUDGING AND PAIN. TELE READS SR, 80. ON O2 VIA NC AT 4LP, [place]ARDEN[place] WELL. COURSE LUNG SOUNDS. GT PRESENT, GTF ON HOLD. GOOD CATH IN PLACE DRAINING WELL. SONDRA PICC IN PLACE, DRESSING INTACT. RUNNING NS AT 125 ML/HR AND LEVOPHED AT 14 MCG/MIN. TURNED AND REPOSITIONED, HOB ELEVATED. FAMILY AT BEDSIDE. ALL QUESTIONS ANSWERED AND NEEDS MET.
[2017-03-22] MEDS: AMIKACIN 500 MG in IV D5W 100 ML IV SCH (23:14)
[2017-03-22] MEDS: NOREPINEPHRINE 8 MG in IV D5W 500 ML IV PRN (23:34)
[2017-03-23] VITALS (75 sets, daily range): BP systolic 89–120; BP diastolic 31–47
[2017-03-23] MEDS: BLOOD SUGAR DIAGNOSTIC 1 EACH STRIP IN SCH ×6 (02:01→20:25)
[2017-03-23] MEDS: INSULIN REGULAR, HUMAN 100 UNIT/ML 3 ML VIAL SQ PRN ×5 (02:03→20:26)
[2017-03-23] MEDS: IV NS 0.9% 1,000 ML IV PRN ×2 (02:08→10:24)
[2017-03-23 05:07] LABS: BASOPHILS # (AUTO) 0.1 /CMM (0.0-0.2); BASOPHILS % (AUTO) 0.4 % (0.0-2.0); EOSINOPHILS % (AUTO) 0.1 % (0.0-6.0); HEMATOCRIT 25 % (33-45); HEMOGLOBIN 8.1 g/dL (11.5-14.8); LYMPHOCYTES # (AUTO) 2.1 /CMM (0.8-4.8); LYMPHOCYTES % (AUTO) 6.1 % (20.0-44.0); MEAN CORPUSCULAR HEMOGLOBIN 28 PG (26.0-33.0); MEAN CORPUSCULAR HGB CONC 33 g/dl (31.0-36.0); MEAN CORPUSCULAR VOLUME 86 fL (82-100); MONOCYTES # (AUTO) 1.1 /CMM (0.1-1.30); MONOCYTES % (AUTO) 3.1 % (2.0-12.0); NEUTROPHILS # (AUTO) 31.4 /CMM (1.8-8.9); NEUTROPHILS % (AUTO) 90.3 % (43.0-81.0); PLATELET COUNT (AUTO) 240 /CMM (150-450); RDW COEFFICIENT OF VARIATION 16.1 (11.5-15.0); RED BLOOD CELL COUNT(AUTO) 2.87 MIL/uL (4.0-5.2)
[2017-03-23] MEDS: VANCOMYCIN HCL 125 MG/2.5 ML ORAL.SUSP PO SCH ×3 (05:29→17:20)
[2017-03-23] MEDS: LINEZOLID RTU BAG 600 MG in PREMIX 1 EA IV SCH ×2 (05:29→17:20)
[2017-03-23] MEDS: GLYTROL 1,000 ML BAG GT PRN ×2 (05:30→21:47)
[2017-03-23 05:32] LABS: WHITE BLOOD COUNT (AUTO) 34.7 K/uL (4.3-11.0)
[2017-03-23 05:33] LABS: CALCIUM, SERUM 7.4 mg/dL (8.5-10.1); CARBON DIOXIDE 27 mmol/L (21-32); CHLORIDE 114 mmol/L (98-107); CREATININE 1.3 mg/dL (0.6-1.3); GLUCOSE 189 mg/dL (74-106); MAGNESIUM 2.2 mg/dL (1.8-2.4); PHOSPHORUS 2.6 mg/dL (2.5-4.9); SODIUM SERUM 148 mmol/L (136-145)
[2017-03-23 05:35] LABS: UREA NITROGEN, BLOOD 86 mg/dL (7-18)
[2017-03-23 05:57] LABS: LYMPHOCYTES % (MANUAL) 9 % (16-48); MONOCYTES % (MANUAL) 4 % (0-11.0); NEUTROPHILS % (MANUAL) 87 (42-76)
--- NOTE | 2017-03-23 06:53 | NUR ---
ETHICS OFFICER NOTES CONTACTED DR ALVARADO AND MADE AWARE OF CHEST/ABD/PELVIS CT RESULTS. ORDER RECEIVED TO HAVE MORNING PRIMARY PHYSICIAN CALL AND PLACE CONSULT FOR UROLOGIST, POSSIBLY DR MARC DOUGHERTY, DUE TO THE SEVERE HYDRONEPHROSIS DUE TO OBSTRUCTION. UROLOGY CONSULT AND MISC ORDER PLACED AND WILL BRING TO AM SHIFT RN'S ATTENTION.
--- NOTE | 2017-03-23 08:45 | NUR ---
PER PM SHIFT REPORT AND CHARGE NURSE REPORT, DR. ALVARADO CHANGED THE LOVENOX TO HEPARIN, HOWEVER THERE IS STILL AND ORDER FOR LOVENOX IN THE EMAR. I WILL HOLD THE LOVENOX AND GIVE THE AM HEPARIN AND NOTIFY DAY SHIFT MD ABOUT LOVENOX NEEDING TO BE DC PER DR. ALVARADO.
[2017-03-23] MEDS: DOCUSATE SODIUM LIQ 100 MG/10 ML UDC GT SCH ×2 (09:00→16:05)
[2017-03-23] MEDS: ENOXAPARIN SODIUM 30 MG/0.3 ML DISP.SYRIN SQ SCH (09:00)
[2017-03-23] MEDS: NOREPINEPHRINE 8 MG in IV D5W 500 ML IV PRN (09:02)
[2017-03-23] MEDS: LACTOBACILLUS RHAMNOSUS GG 1 EACH CAP.SPRINK GT SCH ×2 (09:13→16:05)
[2017-03-23] MEDS: risperiDONE 1 MG TABLET PO SCH (09:13)
[2017-03-23] MEDS: CARBIDOPA/LEVODOPA 25/100 MG 1 UDTAB GT SCH ×3 (09:13→16:05)
[2017-03-23] MEDS: ZINC SULFATE 220 MG CAPSULE GT SCH (09:13)
[2017-03-23] MEDS: HEPARIN SODIUM, PORCINE 5000 UNITS/1 ML VIAL SQ SCH ×2 (09:29→20:28)
[2017-03-23] MEDS: MEROPENEM 1 G in IV NS 0.9% 100 ML IV SCH ×2 (10:52→20:28)
--- NOTE | 2017-03-23 12:59 | NUR ---
DR. DOUGHERTY AND DR. CHAUHAN ON THE UNIT TO DISCUSS THE LEFT RENAL CALICULI, THEY DISCUSS POSSIBLE NEPHROSTOMY TUBE PLACEMENT. DR. DOUGHERTY ASKS TO CALL RADIOLOGY TO GET IT SET UP. CALLED RADIOLOGY AND DR. WEIR STATES AFTER REVIEWING CT'S RESULTS THAT PT MAY NOT BENEFIT FROM NEPHROSTOMY TUBE. I OVERHEAD PAGED DR. DOUGHERTY ( HE JUST LEFT THE UNIT) AND GAVE THE DIRECT EXTENSION FOR DR. WEIR. I WILL AWAIT TILL THE FINAL DECISION OF WHETHER THE MD'S WILL GO WITH NEPHROSTOMY TUBE PLACEMENT OR NOT BEFORE I GET CONSENT FROM FAMILY.
[2017-03-23] MEDS: ACETAMINOPHEN 325 MG TABLET PO PRN (13:04)
--- NOTE | 2017-03-23 13:37 | NUR ---
CALLED DR. MARC DOUGHERTY'S OFFICE TO ANN CARTER AND HAVE HIM TALK WITH RADIOLOGIST (DR WEIR) ABOUT THE NEPHROSTOMY TUBE PLACEMENT. DR. DOUGHERTY CALLS UNIT BACK AND I TRANSFERRED HIM RADIOLOGY EXTENSION [id number] (DR. WEIR).
[2017-03-23] MEDS: FLUCONAZOLE IN NS 100 MG in PREMIX 1 EA IV SCH ×2 (15:44)
--- NOTE | 2017-03-23 15:51 | NUR ---
DR. CHAUHAN REQUESTS FOR GI CONSULT DR. VAZQUEZ, CALLED HIS OFFICE NUMBER WHO GAVE ME HIS DIRECT NUMBER FOR CONSULTATION, SPOKE WITH HIM AND HE STATES HE WILL COME FOR THE CONSULTATION IN ABOUT 2 HRS.
--- NOTE | 2017-03-23 18:45 | NUR ---
DR. VAZQUEZ ON THE UNIT TO EVAL, DOES NOT RECOMMEND FOR ANY PROCEDURES AT THIS TIME, BUT RECOMMENDS VANCO FOR THE CDIFF WHICH I REPORTED THE PT IS ALREADY ON. NO NEW ORDERS OR PROCEDURES MD STATES HE WILL FOLLOW CASE.
--- NOTE | 2017-03-23 19:30 | NUR ---
RN INITIAL NOTES RECEIVED PT ASLEEP ON BED, LETHARGIC BUT EASILY AROUSABLE TO NAME. ON 3L NASAL CANNULA, SATURATING WELL, NO S/S OF RESP DISTRESS. CURRENTLY SR ON THE MONITOR, HR 70'S. ON LEVO DRIP @ 8MCG/MIN. GTUBE ON GLYTROL FEEDING 60MLS/HR, NO RESIDUALS, TOLERATING WELL. GOOD CATH INTACT. RIGHT UPPER ARM PICC WITH NS @ 125MLS/HR, ALL PORTS FLUSHED AND PATENT, NO S/S OF INFILTRATION/INFECTION, DRESSING CDI. BED LOW AND LOCKED, SIDERAILS UP, CALL LIGHT WITHIN REACH. WILL MONITOR CLOSELY
[2017-03-23] MEDS ORDERED: AMIKACIN 500 MG in IV NS 0.9% 100 ML IV SCH (21:00)
[2017-03-23] MEDS ORDERED: METRONIDAZOLE 500MG/ NS 100ML 100 ML IV ONE (22:12)
[2017-03-23] MEDS ORDERED: METRONIDAZOLE 500MG/ NS 100ML 500 MG in PREMIX 1 EA IV SCH (22:30)
[2017-03-24] VITALS (96 sets, daily range): BP systolic 81–119; BP diastolic 29–101
[2017-03-24] MEDS: INSULIN REGULAR, HUMAN 100 UNIT/ML 3 ML VIAL SQ PRN ×6 (00:09→20:16)
[2017-03-24] MEDS: BLOOD SUGAR DIAGNOSTIC 1 EACH STRIP IN SCH ×6 (00:09→20:14)
[2017-03-24] MEDS: VANCOMYCIN HCL 125 MG/2.5 ML ORAL.SUSP PO SCH ×5 (00:10→23:07)
[2017-03-24] MEDS: NOREPINEPHRINE 8 MG in IV D5W 500 ML IV PRN ×2 (00:11→17:50)
[2017-03-24] MEDS: IV NS 0.9% 1,000 ML IV PRN ×2 (01:22→12:58)
[2017-03-24 04:46] LABS: BASOPHILS # (AUTO) 0.1 /CMM (0.0-0.2); BASOPHILS % (AUTO) 0.2 % (0.0-2.0); EOSINOPHILS # (AUTO) 0.1 /CMM (0.0-0.7); EOSINOPHILS % (AUTO) 0.4 % (0.0-6.0); HEMATOCRIT 23 % (33-45); HEMOGLOBIN 7.4 g/dL (11.5-14.8); LYMPHOCYTES # (AUTO) 1.4 /CMM (0.8-4.8); LYMPHOCYTES % (AUTO) 5.7 % (20.0-44.0); MEAN CORPUSCULAR HEMOGLOBIN 28 PG (26.0-33.0); MEAN CORPUSCULAR HGB CONC 32 g/dl (31.0-36.0); MEAN CORPUSCULAR VOLUME 87 fL (82-100); MONOCYTES % (AUTO) 4.1 % (2.0-12.0); NEUTROPHILS # (AUTO) 22.8 /CMM (1.8-8.9); NEUTROPHILS % (AUTO) 89.6 % (43.0-81.0); PLATELET COUNT (AUTO) 194 /CMM (150-450); RDW COEFFICIENT OF VARIATION 16.3 (11.5-15.0); RED BLOOD CELL COUNT(AUTO) 2.65 MIL/uL (4.0-5.2); WHITE BLOOD COUNT (AUTO) 25.4 K/uL (4.3-11.0)
[2017-03-24 04:57] LABS: CALCIUM, SERUM 7.4 mg/dL (8.5-10.1); CARBON DIOXIDE 26 mmol/L (21-32); CHLORIDE 115 mmol/L (98-107); GLUCOSE 182 mg/dL (74-106); PHOSPHORUS 2.7 mg/dL (2.5-4.9); POTASSIUM 4.2 mmol/L (3.5-5.1); SODIUM SERUM 148 mmol/L (136-145); UREA NITROGEN, BLOOD 61 mg/dL (7-18)
[2017-03-24] MEDS: LINEZOLID RTU BAG 600 MG in PREMIX 1 EA IV SCH ×2 (05:00→17:50)
[2017-03-24 05:27] LABS: BAND % (MANUAL) 2 % (0.0-5.0); LYMPHOCYTES % (MANUAL) 7 % (16-48); MONOCYTES % (MANUAL) 5 % (0-11.0); NEUTROPHILS % (MANUAL) 86 (42-76)
--- NOTE | 2017-03-24 06:20 | NUR ---
RN CLOSING NOTES PT REMAINS STABLE OF THE MOMENT. ALL DUE MEDS GIVEN, AM CARE PROVIDED. WILL ENDORSE CATRACHITA TO AM RN
--- NOTE | 2017-03-24 07:53 | NUR ---
INITIAL CABLE CUTTER AND SWAGER NOTE RCVD PT AWAKE AND ALERT TO SELF, VIA IRISH SOLE TRIMMER PT WAS RE-ORIENTED. SR ON TELE, SATURATING WELL ON O2 VIA NC. PEG PLACEMENT VERIFIED BY AUSCULTATION/ASPIRATION. FIVE ML RESIDUAL OBTAINED. GOOD TO GRAVITY DRAINING CLEAR, YELLOW URINE. SONDRA PICC C/D/I/PATENT. NO S/O INFILTRATION/PHLEBITIS OBSERVED IVF INFUSING. WILL CONTINUE TO MONITOR PT FOR SAFETY AND COMFORT. CALL LIGHT WITHIN REACH. BED IN LOW AND LOCKED POSITION.
[2017-03-24] MEDS: DOCUSATE SODIUM LIQ 100 MG/10 ML UDC GT SCH ×2 (08:19→16:20)
[2017-03-24] MEDS: METRONIDAZOLE 500MG/ NS 100ML 500 MG in PREMIX 1 EA IV SCH ×4 (08:19→21:08)
[2017-03-24] MEDS: risperiDONE 1 MG TABLET PO SCH (08:20)
[2017-03-24] MEDS: ZINC SULFATE 220 MG CAPSULE GT SCH (08:20)
[2017-03-24] MEDS: CARBIDOPA/LEVODOPA 25/100 MG 1 UDTAB GT SCH ×3 (08:20→16:20)
[2017-03-24] MEDS: LACTOBACILLUS RHAMNOSUS GG 1 EACH CAP.SPRINK GT SCH ×2 (08:20→16:20)
[2017-03-24] MEDS: HEPARIN SODIUM, PORCINE 5000 UNITS/1 ML VIAL SQ SCH ×2 (08:29→20:17)
[2017-03-24] MEDS: MEROPENEM 1 G in IV NS 0.9% 100 ML IV SCH ×2 (09:15→20:15)
--- NOTE | 2017-03-24 10:52 | NUR ---
ACROBATIC RIGGER NOTE DR. CHAUHAN IN UNIT INFORMED THAT DEISI, FROM RADIOLOGY HAD CALLED EARLIER IN THE DAY STATING THAT RADIOLOGIST WAS NOT GOING TO MOVE FORWARD WITH NEPHROSTOMY PLACEMENT. PER DR. CHAUHAN PT NEEDS PROCEDURE TO BE DONE AND DR. DOUGHERTY MIGHT HAVE TO SCHEDULE PT. DR. CHAUHAN ALSO ASKED IF ROSHNI COULD GET INVOLVED AND HAVE RADIOLOGIST PERFORM PROCEDURE. SALVADOR BERNARD INFORMED AND WILL F/U WITH ALLISON.
--- NOTE | 2017-03-24 11:12 | NUR ---
LOADER DEMOLDER NOTE PT'S SISTER AT BEDSIDE GIVEN UPDATE ON PT'S CONDITION. QUESTIONS ENCOURAGED AND ANSWERED TO HER SATISFACTION.
[2017-03-24] MEDS: Z GUARD REMEDY 2 OZ OINT TP PRN (12:57)
[2017-03-24] MEDS: GLYTROL 1,000 ML BAG GT PRN (12:58)
--- NOTE | 2017-03-24 16:06 | NUR ---
CONTACTED DR. DOUGHERTY REGARDING THE NEPHROSTOMY TUBE PLACEMENT. HE STATES THAT HE SPOKE WITH THE RADIOLOGIST (AFTER MD MCLAUGHLIN MADE HIS NOTE) AND HE THEN WAS CONVINCED AFTER SPEAKING WITH RADIOLOGIST THAT THE PT DOES NOT NEED NEPHROSTOMY TUBE ANY MORE.
[2017-03-24] MEDS: FLUCONAZOLE IN NS 100 MG in PREMIX 1 EA IV SCH ×2 (16:19)
--- NOTE | 2017-03-24 18:19 | NUR ---
BARGE ENGINEER NOTE PT CONTINUES TO NEED PRESSOR SUPPORT, FAMILY VISITED EARLIER IN AFTERNOON AND SPOKE WITH PT. SR ON TELE. TOLERATING O2 VIA NC. PEG PLACEMENT VERIFIED BY AUSCULTATION/ASPIRATION. NO RESIDUAL OBTAINED UPON ASPIRATING. GOOD TO GRAVITY DRAINING CLOUDY, YELLOW URINE.SONDRA PICC C/D/I/PATENT. NO S/O INFILTRATION/PHLEBITIS OBSERVED, IVF INFUSING. PT'S CARE WILL BE ENDORSED TO INGREDIENT HANDLER RN FOR CONTINUITY OF CARE.
--- NOTE | 2017-03-24 19:10 | NUR ---
RN INITIAL NOTES RECEIVED PT ASLEEP ON BED, DROWSY BUT EASILY AROUSABLE TO NAME. ON 3L NASAL CANNULA, SATURATING WELL, NO S/S OF RESP DISTRESS. CURRENTLY SR ON THE MONITOR, HR 70'S. ON LEVO DRIP @ 8MCG/MIN. GTUBE ON GLYTROL FEEDING 60MLS/HR, NO RESIDUALS, TOLERATING WELL. GOOD CATH INTACT. RIGHT UPPER ARM PICC WITH NS @ 125MLS/HR, ALL PORTS FLUSHED AND PATENT, NO S/S OF INFILTRATION/INFECTION, DRESSING CDI. BED LOW AND LOCKED, SIDERAILS UP, CALL LIGHT WITHIN REACH. WILL MONITOR CLOSELY
[2017-03-25] VITALS (88 sets, daily range): BP systolic 68–146; BP diastolic 29–73
[2017-03-25] MEDS: BLOOD SUGAR DIAGNOSTIC 1 EACH STRIP IN SCH ×6 (00:53→20:28)
[2017-03-25] MEDS: INSULIN REGULAR, HUMAN 100 UNIT/ML 3 ML VIAL SQ PRN ×5 (00:55→20:34)
[2017-03-25] MEDS: IV NS 0.9% 1,000 ML IV PRN (03:55)
[2017-03-25] MEDS: METRONIDAZOLE 500MG/ NS 100ML 500 MG in PREMIX 1 EA IV SCH ×3 (04:04→21:28)
[2017-03-25 05:08] LABS: BASOPHILS # (AUTO) 0.1 /CMM (0.0-0.2); BASOPHILS % (AUTO) 0.4 % (0.0-2.0); EOSINOPHILS # (AUTO) 0.2 /CMM (0.0-0.7); EOSINOPHILS % (AUTO) 0.8 % (0.0-6.0); HEMATOCRIT 21 % (33-45); LYMPHOCYTES # (AUTO) 1.4 /CMM (0.8-4.8); MEAN CORPUSCULAR HEMOGLOBIN 28 PG (26.0-33.0); MEAN CORPUSCULAR HGB CONC 32 g/dl (31.0-36.0); MEAN CORPUSCULAR VOLUME 86 fL (82-100); MONOCYTES # (AUTO) 0.6 /CMM (0.1-1.30); MONOCYTES % (AUTO) 2.8 % (2.0-12.0); NEUTROPHILS # (AUTO) 17.8 /CMM (1.8-8.9); PLATELET COUNT (AUTO) 201 /CMM (150-450); RDW COEFFICIENT OF VARIATION 16.1 (11.5-15.0); RED BLOOD CELL COUNT(AUTO) 2.48 MIL/uL (4.0-5.2)
[2017-03-25 05:10] LABS: CALCIUM, SERUM 7.4 mg/dL (8.5-10.1); CARBON DIOXIDE 26 mmol/L (21-32); CHLORIDE 118 mmol/L (98-107); CREATININE 0.8 mg/dL (0.6-1.3); GLUCOSE 167 mg/dL (74-106); MAGNESIUM 1.8 mg/dL (1.8-2.4); PHOSPHORUS 2.5 mg/dL (2.5-4.9); POTASSIUM 4.4 mmol/L (3.5-5.1); SODIUM SERUM 151 mmol/L (136-145); UREA NITROGEN, BLOOD 43 mg/dL (7-18)
[2017-03-25] MEDS: VANCOMYCIN HCL 125 MG/2.5 ML ORAL.SUSP PO SCH ×4 (05:10→23:19)
[2017-03-25] MEDS: LINEZOLID RTU BAG 600 MG in PREMIX 1 EA IV SCH ×2 (05:11→17:05)
--- NOTE | 2017-03-25 05:30 | NUR ---
RN NOTES NOTIFIED DR ALVARADO OF CRITICAL HGB 6.9 AND HCT 21. MD ORDERED FOR 1 UNIT PRBC TO BE TRANSFUSED
[2017-03-25 05:31] LABS: HEMOGLOBIN 6.9 g/dL (11.5-14.8)
[2017-03-25 06:01] LABS: BAND % (MANUAL) 1 % (0.0-5.0); LYMPHOCYTES % (MANUAL) 10 % (16-48); METAMYELOCYTES % 1 % (0-0); MONOCYTES % (MANUAL) 3 % (0-11.0); NEUTROPHILS % (MANUAL) 84 (42-76); REACTIVE LYMPHOCYTES 1 % (0-0)
--- NOTE | 2017-03-25 06:20 | NUR ---
RN CLOSING NOTES PT REMAINS STABLE OF THE MOMENT. ALL DUE MEDS GIVEN, AM CARE PROVIDED. WILL ENDORSE CATRACHITA TO AM RN
[2017-03-25] MEDS: GLYTROL 1,000 ML BAG GT PRN (07:21)
[2017-03-25] MEDS: DOCUSATE SODIUM LIQ 100 MG/10 ML UDC GT SCH ×2 (07:22→16:50)
--- NOTE | 2017-03-25 07:36 | NUR ---
INITIAL ENTRY LEVEL DRAFTER NOTE RCVD PT AWAKE, SR ON TELE. TOLERATING O2 VIA NC. PEG PLACEMENT VERIFIED BY AUSCULTATION/ASPIRATION. NO RESIDUAL OBTAINED. GOOD TO GRAVITY DRAINING CLOUDY, YELLOW URINE. SONDRA PICC C/D/I/PATENT. NO S/O INFILTRATION/PHLEBITIS OBSERVED IVF INFUSING. WILL CONTINUE TO MONITOR PT FOR SAFETY AND COMFORT. CALL LIGHT WITHIN REACH. BED IN LOW AND LOCKED POSITION. BED ALARM ON.
[2017-03-25] MEDS: ZINC SULFATE 220 MG CAPSULE GT SCH (08:24)
[2017-03-25] MEDS: LACTOBACILLUS RHAMNOSUS GG 1 EACH CAP.SPRINK GT SCH ×2 (08:24→16:49)
[2017-03-25] MEDS: MEROPENEM 1 G in IV NS 0.9% 100 ML IV SCH (08:24)
[2017-03-25] MEDS: risperiDONE 1 MG TABLET PO SCH (08:24)
[2017-03-25] MEDS: CARBIDOPA/LEVODOPA 25/100 MG 1 UDTAB GT SCH ×3 (08:24→16:49)
[2017-03-25] MEDS: HEPARIN SODIUM, PORCINE 5000 UNITS/1 ML VIAL SQ SCH ×2 (08:31→20:34)
[2017-03-25] MEDS: IV 1/2NS 1000 ML 1,000 ML IV PRN (10:11)
--- NOTE | 2017-03-25 11:53 | NUR ---
ORACLE WEBCENTER CONSULTANT NOTE DR. CHAUHAN IN UNIT UPDATED ON PT'S CONDITION. PT'S DAUGHTER AT BEDSIDE SPOKE WITH DR. CHAUHAN AND WAS INFORMED OF PT'S PLAN OF CARE. QUESTIONS ANSWERED TO HER SATISFACTION.
[2017-03-25 13:24] LABS: HEMOGLOBIN 7.2 g/dL (11.5-14.8)
[2017-03-25] MEDS: CEFAZOLIN 1 GM in IV NS 0.9% 50 ML IV SCH ×2 (13:41→20:34)
--- NOTE | 2017-03-25 13:55 | NUR ---
SOUND CONTROLLER NOTE DR. CHAUHAN INFORMED OF PT'S H/H POST TRANSFUSION 7.04/14. NO NEW ORDERS RCVD. WILL CONTINUE TO MONITOR.
[2017-03-25] MEDS: SOD FERRIC GLUC 125 MG in IV NS 0.9% 100 ML IV SCH (15:27)
[2017-03-25] MEDS: NOREPINEPHRINE 8 MG in IV D5W 500 ML IV PRN (16:55)
--- NOTE | 2017-03-25 18:39 | NUR ---
REINFORCING METAL WORKER NOTE PT AWAKE, CONFUSED, SR ON TELE. CONTINUES TO NEED PRESSOR SUPPORT. TOLERATING O2 VIA NC. PEG IN PLACE NO GASTRIC CONTENT ASPIRATED. GOOD TO GRAVITY DRAINING CLOUDY, YELLOW URINE. SONDRA PICC C/D/I/PATENT. NO S/O INFILTRATION/PHLEBITIS OBSERVED IVF INFUSING. PT'S CARE WILL BE ENDORSED TO POLYSTYRENE MOLDING MACHINE TENDER RN FOR CONTINUITY OF CARE. BED IN LOW AND LOCKED POSITION. CALL LIGHT WITHIN REACH.
--- NOTE | 2017-03-25 19:30 | NUR ---
ICU/RN NOTES: RECEIVED BEDSIDE REPORT FROM AM NURSE. PT. IS AWAKE W/ HOB ELEVATED AT ALL TIMES. PT. RESPONDS TO HER NAME ONLY. ON TELE ST BBB 65. TOLERATING O2 @ 3LPM VIA NC SAT. 99%. PEG PLACEMENT VERIFIED BY AUSCULTATION/ASPIRATION. NO RESIDUAL OBTAINED. TOLERATING FEEDING WELL. W/ F/C INPLACE DRAINING TO GRAVITY CLOUDY, YELLOW URINE. SONDRA PICC C/D/I/PATENT. NO S/O INFILTRATION/INFECTION NOTED. WILL CONTINUE TO MONITOR PT FOR SAFETY AND COMFORT. CALL LIGHT WITHIN REACH. BED IN LOW AND LOCKED POSITION. NEEDS MEET AND ATTENDED. BED ALARM ON.
--- NOTE | 2017-03-25 21:00 | NUR ---
ICU/ RN NOTES: BS 169 W/ SLIDING COVERAGE GIVEN PER ORDER. IV ATB GIVEN.
--- NOTE | 2017-03-25 23:00 | NUR ---
ICU/RN NOTES: LEVOPHED INCREASED FROM 6MCG TO 8 MCG DUE TO BP 108/35. WILL CONTINUE TO MONITOR.
[2017-03-26] VITALS (39 sets, daily range): BP systolic 87–139; BP diastolic 34–73
[2017-03-26] MEDS: BLOOD SUGAR DIAGNOSTIC 1 EACH STRIP IN SCH ×6 (00:29→20:27)
[2017-03-26] MEDS: INSULIN REGULAR, HUMAN 100 UNIT/ML 3 ML VIAL SQ PRN ×5 (00:31→20:29)
[2017-03-26] MEDS: GLYTROL 1,000 ML BAG GT PRN (00:35)
--- NOTE | 2017-03-26 00:54 | NUR ---
ICU/RN NOTES: BS 159 W/ SLIDING COVERAGE GIVEN. HANG NEW FEEDING BAG.
--- NOTE | 2017-03-26 02:14 | NUR ---
ICU/RN NOTES: PT. RESTING COMFORTABLE. NOT IN ANY ACUTE RESPIRATORY DISTRESS NOTED.
[2017-03-26] MEDS: IV 1/2NS 1000 ML 1,000 ML IV PRN (03:14)
--- NOTE | 2017-03-26 04:00 | NUR ---
ICU/RN NOTES: ATB. GIVEN PER ORDER. NOT IN ANY DISTRESS.
[2017-03-26] MEDS: CEFAZOLIN 1 GM in IV NS 0.9% 50 ML IV SCH ×3 (04:03→20:30)
[2017-03-26] MEDS: METRONIDAZOLE 500MG/ NS 100ML 500 MG in PREMIX 1 EA IV SCH ×3 (04:42→21:24)
[2017-03-26 05:00] LABS: BASOPHILS % (AUTO) 0.1 % (0.0-2.0); EOSINOPHILS # (AUTO) 0.3 /CMM (0.0-0.7); EOSINOPHILS % (AUTO) 1.7 % (0.0-6.0); HEMATOCRIT 26 % (33-45); HEMOGLOBIN 8.6 g/dL (11.5-14.8); LYMPHOCYTES # (AUTO) 1.7 /CMM (0.8-4.8); LYMPHOCYTES % (AUTO) 9.5 % (20.0-44.0); MEAN CORPUSCULAR HEMOGLOBIN 28 PG (26.0-33.0); MEAN CORPUSCULAR HGB CONC 33 g/dl (31.0-36.0); MEAN CORPUSCULAR VOLUME 86 fL (82-100); MONOCYTES # (AUTO) 1.1 /CMM (0.1-1.30); MONOCYTES % (AUTO) 6.1 % (2.0-12.0); NEUTROPHILS % (AUTO) 82.6 % (43.0-81.0); PLATELET COUNT (AUTO) 274 /CMM (150-450); RED BLOOD CELL COUNT(AUTO) 3.07 MIL/uL (4.0-5.2); WHITE BLOOD COUNT (AUTO) 18.2 K/uL (4.3-11.0)
[2017-03-26] MEDS: VANCOMYCIN HCL 125 MG/2.5 ML ORAL.SUSP PO SCH ×3 (05:03→17:00)
[2017-03-26 05:19] LABS: ALANINE AMINOTRANSFERASE 10 U/L (12-78); ALKALINE PHOSPHATASE 62 U/L (46-116); ASPARTATE AMINOTRANSFERASE 20 U/L (15-37); BILIRUBIN,TOTAL 0.2 mg/dL (0.2-1.0); CALCIUM, SERUM 7.8 mg/dL (8.5-10.1); CARBON DIOXIDE 25 mmol/L (21-32); CHLORIDE 115 mmol/L (98-107); CREATININE 0.7 mg/dL (0.6-1.3); GLUCOSE 155 mg/dL (74-106); MAGNESIUM 1.5 mg/dL (1.8-2.4); PHOSPHORUS 2.6 mg/dL (2.5-4.9); POTASSIUM 4.4 mmol/L (3.5-5.1); SODIUM SERUM 147 mmol/L (136-145); TOTAL PROTEIN, SERUM 5.2 g/dL (6.4-8.2); UREA NITROGEN, BLOOD 34 mg/dL (7-18)
[2017-03-26 05:32] LABS: ALBUMIN 1.2 g/dL (3.4-5.0)
[2017-03-26] MEDS: LINEZOLID RTU BAG 600 MG in PREMIX 1 EA IV SCH ×2 (05:49→17:00)
--- NOTE | 2017-03-26 06:30 | NUR ---
ICU/RN NOTES: BS AT 5 AM WAS 159 W/ SLIDING COVERAGE GIVEN PER ORDER.
--- NOTE | 2017-03-26 06:32 | NUR ---
ICU/RN NOTES: DR. ALVARADO MADE AWARE OF ALBUMIN 1.2. PER DR. ALVARADO CONTINUE CURRENT REGIMEN.
--- NOTE | 2017-03-26 06:50 | NUR ---
RN/ICU NOTES: V/S BP 120/55, 83, 100 % SAT W/ O2 @ 3LPM VIA N/C, 17.
--- NOTE | 2017-03-26 07:19 | NUR ---
ICU/RN NOTES: BED SIDE REPORT GIVEN TO AM NURSE MECHE FOR CATRACHITA.
--- NOTE | 2017-03-26 07:36 | NUR ---
MANUFACTURING AUTOMATION ENGINEER NOTE PATIENT IN BED LETHARGIC , BUT OPENED HER EYES WHEN CALLING HER NAME AND RUB HER STERNUM,ON 3L NC SAT 99%, WITH GOOD CATH TO GRAVITY WITH YELLOW COLOR URINE , ON G TUBE FEEDING ORDERER KEEP HOB ELEVATED AT ALL TIME , RT UPPER ARM PICC LINE IN PLACE , NO S\S INFECTION , ON LEVOPHED DRIP ORDERED BP AT THIS TIME 128/48
[2017-03-26] MEDS: DOCUSATE SODIUM LIQ 100 MG/10 ML UDC GT SCH ×2 (08:14→16:22)
[2017-03-26] MEDS: ZINC SULFATE 220 MG CAPSULE GT SCH (08:14)
[2017-03-26] MEDS: LACTOBACILLUS RHAMNOSUS GG 1 EACH CAP.SPRINK GT SCH ×2 (08:15→16:22)
[2017-03-26] MEDS: risperiDONE 1 MG TABLET PO SCH (08:15)
[2017-03-26] MEDS: HEPARIN SODIUM, PORCINE 5000 UNITS/1 ML VIAL SQ SCH ×2 (08:16→20:30)
[2017-03-26] MEDS: CARBIDOPA/LEVODOPA 25/100 MG 1 UDTAB GT SCH ×3 (08:18→16:22)
--- NOTE | 2017-03-26 09:45 | NUR ---
COLLECTIONS CLERK NOTE SEEN BY DR CHAUHAN NOTIFIED THAT HG TODAY 8.6, NA 147 NOTIFIED THAT ON LEVOPHED DRIP BP CURRENT 108/33 STATED TRY TO TITRATE DOWN IF POSSIBLE ,OVERALL PATIENT IS BETTER
[2017-03-26] MEDS: Magnesium 1GM/D5W 100ML PREMIX 100 ML IV SCH ×2 (11:25→13:20)
--- NOTE | 2017-03-26 12:00 | NUR ---
PICKLING TANK OPERATOR NOTE . FAMILY AT BEDSIDE CONT ON LEVOPHED DRIP ORDERED, WILL CONT TO MONDOR CLOSELY
[2017-03-26] MEDS: NOREPINEPHRINE 8 MG in IV D5W 500 ML IV PRN (14:06)
[2017-03-26] MEDS: SOD FERRIC GLUC 125 MG in IV NS 0.9% 100 ML IV SCH (15:06)
--- NOTE | 2017-03-26 15:33 | NUR ---
ARC WELDING MACHINE OPERATOR NOTE SPOKE WITH DR CLARK ID DOCTOR NOTIFIED THAT PER LAB CALL BLOOD CX GRAM NEGATIVE ELLIOTT IN ONE OF TWO BOTTLE ,NO NEW ORDER GIVEN CONT THE SAME IV ATB
--- NOTE | 2017-03-26 15:42 | NUR ---
DIESEL TECHNICIAN NOTE TITRATE LEVOPHED TO 4 MCG\ ML, BP 90/45 HR 59 . WILL INCREASE TO 6 MCG\ML, WILL F\U
--- NOTE | 2017-03-26 17:43 | NUR ---
COMMERCIAL REAL ESTATE AGENT NOTE BACK TO 6 MG\ML BP 88/33 OF LEVOPHED ,WILL CONT TO MONITOR CLOSELY, KEEP CLEAN DRY REPOSITION Q2 HOUR
--- NOTE | 2017-03-26 17:44 | NUR ---
OUTBOUND SALES ADVISOR NOTE BACK TO 6 MCG\ML OF LEVOPHED DRIP BP 83/33, WILL MONITOR CLOSELY
--- NOTE | 2017-03-26 18:28 | NUR ---
FLAME PLANER NOTE MORE AWAKE FOR NOW, EYES IS OPEN , SKIN WARM AND DRY TO TORCH , ON LEVOPHED DRIP ORDERED , BED IN LOWEST AND LOCKED POSITION . ON G TUBE FEEDING AT 60 ML PER HOUR NO RESIDUAL NOTED, WILL CONT TO MONITOR CLOSELY
--- NOTE | 2017-03-26 19:30 | NUR ---
RN INITIAL NOTES RECEIVED PT AWAKE ON BED, A/O X1 ONLY. ON 3L NASAL CANNULA, SATURATING WELL, NO S/S OF RESP DISTRESS. CURRENTLY SR ON THE MONITOR, HR 60'S. ON LEVO DRIP @ 6MCG/MIN. GTUBE ON GLYTROL FEEDING 60MLS/HR, NO RESIDUALS, TOLERATING WELL. GOOD CATH INTACT. RIGHT UPPER ARM PICC WITH 1/2NS @ 110MLS/HR, ALL PORTS FLUSHED AND PATENT, NO S/S OF INFILTRATION/INFECTION, DRESSING CDI. BED LOW AND LOCKED, SIDERAILS UP, CALL LIGHT WITHIN REACH. WILL MONITOR CLOSELY
[2017-03-26] MEDS ORDERED: MUPIROCIN OINT 2% 22 GM TUBE SCH (21:00)
[2017-03-27] VITALS (37 sets, daily range): BP systolic 92–122; BP diastolic 32–49
[2017-03-27] MEDS: BLOOD SUGAR DIAGNOSTIC 1 EACH STRIP IN SCH ×6 (00:31→20:34)
[2017-03-27] MEDS: VANCOMYCIN HCL 125 MG/2.5 ML ORAL.SUSP PO SCH ×4 (00:31→17:44)
[2017-03-27] MEDS: IV 1/2NS 1000 ML 1,000 ML IV PRN ×2 (00:32→16:18)
[2017-03-27] MEDS: GLYTROL 1,000 ML BAG GT PRN (00:32)
[2017-03-27] MEDS: CEFAZOLIN 1 GM in IV NS 0.9% 50 ML IV SCH ×3 (04:56→20:57)
[2017-03-27 05:29] LABS: BASOPHILS % (AUTO) 0.3 % (0.0-2.0); EOSINOPHILS # (AUTO) 0.2 /CMM (0.0-0.7); EOSINOPHILS % (AUTO) 1.5 % (0.0-6.0); HEMATOCRIT 24 % (33-45); HEMOGLOBIN 7.8 g/dL (11.5-14.8); LYMPHOCYTES # (AUTO) 1.9 /CMM (0.8-4.8); LYMPHOCYTES % (AUTO) 14.5 % (20.0-44.0); MEAN CORPUSCULAR HEMOGLOBIN 28 PG (26.0-33.0); MEAN CORPUSCULAR HGB CONC 33 g/dl (31.0-36.0); MEAN CORPUSCULAR VOLUME 86 fL (82-100); MONOCYTES # (AUTO) 0.2 /CMM (0.1-1.30); MONOCYTES % (AUTO) 1.1 % (2.0-12.0); NEUTROPHILS # (AUTO) 11.1 /CMM (1.8-8.9); NEUTROPHILS % (AUTO) 82.6 % (43.0-81.0); PLATELET COUNT (AUTO) 274 /CMM (150-450); RDW COEFFICIENT OF VARIATION 16.4 (11.5-15.0); RED BLOOD CELL COUNT(AUTO) 2.79 MIL/uL (4.0-5.2); WHITE BLOOD COUNT (AUTO) 13.5 K/uL (4.3-11.0)
[2017-03-27] MEDS: METRONIDAZOLE 500MG/ NS 100ML 500 MG in PREMIX 1 EA IV SCH ×3 (05:45→20:57)
[2017-03-27 05:53] LABS: CALCIUM, SERUM 7.6 mg/dL (8.5-10.1); CARBON DIOXIDE 30 mmol/L (21-32); CHLORIDE 111 mmol/L (98-107); CREATININE 0.6 mg/dL (0.6-1.3); GLUCOSE 128 mg/dL (74-106); MAGNESIUM 1.7 mg/dL (1.8-2.4); POTASSIUM 4.5 mmol/L (3.5-5.1); SODIUM SERUM 145 mmol/L (136-145); UREA NITROGEN, BLOOD 24 mg/dL (7-18)
--- NOTE | 2017-03-27 06:20 | NUR ---
RN CLOSING NOTES PT REMAINS STABLE OF THE MOMENT. ALL DUE MEDS GIVEN, AM CARE PROVIDED. WILL ENDORSE CATRACHITA TO AM RN
[2017-03-27] MEDS: LINEZOLID RTU BAG 600 MG in PREMIX 1 EA IV SCH (06:41)
--- NOTE | 2017-03-27 08:00 | NUR ---
ICU/RN AM SHIFT INITIAL NOTES RECEIVED PT ASLEEP IN BED, AROUSEABLE, A/O TO NAME. NO ACUTE CHANGE OF CONDITION OR FEVER NOTED. ON 3L O2 VIA N/C SATURATING @ 100%, LUNG SOUNDS CLEAR. ON TELE WITH SINUS RHYTHM, HR 64. PICC LINE WITH ON GOING INFUSION OF 1/2NS @ 110CC/HR. GODO CATHETER INTACT NOTED WITH YELLOW CLOUDY & SEDIMENTS URINE OUTPUT. GTF @ 60CC/HR, NO GASTRIC RESIDUAL NOTED, FLUSHED. PT IS COMFORTABLE AT THIS TIME. SCHEDULED AM MEDS TO BE GIVEN. CL WITHIN REACHED, SAFETY MAINTAINED AND ISOLATION OBSERVED. ON GOING MONITORING.
[2017-03-27] MEDS: risperiDONE 1 MG TABLET PO SCH (09:21)
[2017-03-27] MEDS: LACTOBACILLUS RHAMNOSUS GG 1 EACH CAP.SPRINK GT SCH ×2 (09:21→16:18)
[2017-03-27] MEDS: DOCUSATE SODIUM LIQ 100 MG/10 ML UDC GT SCH ×2 (09:21→16:18)
[2017-03-27] MEDS: ZINC SULFATE 220 MG CAPSULE GT SCH (09:21)
[2017-03-27] MEDS: CARBIDOPA/LEVODOPA 25/100 MG 1 UDTAB GT SCH ×3 (09:21→16:18)
[2017-03-27] MEDS: HEPARIN SODIUM, PORCINE 5000 UNITS/1 ML VIAL SQ SCH ×2 (09:22→20:54)
[2017-03-27] MEDS: INSULIN REGULAR, HUMAN 100 UNIT/ML 3 ML VIAL SQ PRN ×3 (09:25→20:35)
--- NOTE | 2017-03-27 10:21 | NUR ---
ICU/RN ROUNDS - DR. CHAUHAN UPDATED PT'S CONDITION. PT SEEN & EXAMINED BY DR. CHAUHAN, NO NEW ORDERS RECEIVED BUT PER MD, PT CLEAR TO DOWNGRADE TO TELEMETRY. CHARGE NURSE NOTIFIED. MONITORING CONTINUED.
[2017-03-27] MEDS: Magnesium 1GM/D5W 100ML PREMIX 100 ML IV SCH ×2 (10:22→11:24)
--- NOTE | 2017-03-27 11:00 | NUR ---
ICU/RN ROUNDS - DR. LAYNE UPDATED PT'S CONDITION. PT SEEN & EXAMINED BY DR. LAYNE, NO NEW ORDERS RECEIVED AT THIS TIME. MONITORING CONTINUED.
[2017-03-27] MEDS ORDERED: Magnesium 1GM/D5W 100ML PREMIX 100 ML IV SCH (12:00)
--- NOTE | 2017-03-27 15:45 | NUR ---
michelle rn notes received report from Catherine (CERTIFIED MASSAGE THERAPIST). Patient is on 02 @ 3lpm via NC, on GT glytrol @ 60cc/hr and infusing well. No residual noted. Yost in placed attached to drainage bag. RU PICC line intact and patent with IVF infusing well. Per RN assigned Mg was replaced. Kept patient clean and comfortable in bed, call light with in patient reach, no SOB or distress noted, no facial grimace noted.
--- NOTE | 2017-03-27 15:45 | NUR ---
ICU/RN DOWNGRADE - [facility] 106 REPORT GIVEN TO [facility] NURSE DERRICK. ENDORSED TO CONTINUE CARE. PT TRANSPORTED TO [facility], ROOM 106 VIA BED. PT'S GRANDDAUGHTER NOTIFIED OF PT'S TRANSFER.
[2017-03-27] MEDS: SOD FERRIC GLUC 125 MG in IV NS 0.9% 100 ML IV SCH (16:18)
[2017-03-27] MEDS: LINEZOLID 600 MG TABLET PO SCH (17:44)
[2017-03-27] MEDS: PROSOURCE / PROSTAT (PYXIS) 30 ML UDC GT SCH (17:44)
[2017-03-27] MEDS ORDERED: LINEZOLID RTU BAG 600 MG in PREMIX 1 EA IV SCH (18:00)
--- NOTE | 2017-03-27 19:22 | NUR ---
technician telecommunication systems closing notes All needs provided, attended, and anticipated, kept patient clean and comfortable in bed, call light with in patient reach, endorsed to next shift RN to continue care.
--- NOTE | 2017-03-27 20:44 | NUR ---
SORTER/ASSAY TECH NOTES. TRANSFERRED CARE OF PATIENT AND GAVE REPORT ALYX LAURENT
--- NOTE | 2017-03-27 21:00 | NUR ---
CUSTOMER RETENTION SPECIALIST INITIAL NOTES PT IS IN BED RESTING. NO APPARENT DISTRESS. BREATHING EVENLY AND UNLABORED ON NC. GOOD CATHETER INTACT AND DRAINING. IV ACCESS INTACT. WILL CONTINUE TO MONITOR PT
[2017-03-28] VITALS: BP 101/37
[2017-03-28] MEDS: BLOOD SUGAR DIAGNOSTIC 1 EACH STRIP IN SCH ×6 (00:06→21:12)
[2017-03-28] MEDS: VANCOMYCIN HCL 125 MG/2.5 ML ORAL.SUSP PO SCH ×4 (00:07→17:35)
[2017-03-28 04:00] VITALS: BP 116/40
[2017-03-28] MEDS: IV 1/2NS 1000 ML 1,000 ML IV PRN (04:00)
[2017-03-28] MEDS: CEFAZOLIN 1 GM in IV NS 0.9% 50 ML IV SCH ×3 (05:08→20:32)
[2017-03-28] MEDS: METRONIDAZOLE 500MG/ NS 100ML 500 MG in PREMIX 1 EA IV SCH (05:12)
[2017-03-28] MEDS: LINEZOLID 600 MG TABLET PO SCH ×2 (05:12→17:35)
--- NOTE | 2017-03-28 06:36 | NUR ---
TIMBER FALLER CLOSING NOTES PT IS IN BED RESTING. NO SIGNS OF SOB OR DISTRESS. ON TELE MONITOR SHOWING SR 66. IV ACCESS IS INTACT AND PATENT. GTUBE FEEDING IS BEING TOLERATED WELL. BED IS IN LOW AND LOCKED POSITION. WILL ENDORSE TO DAYSHIFT
[2017-03-28 06:53] LABS: BASOPHILS # (AUTO) 0.1 /CMM (0.0-0.2); BASOPHILS % (AUTO) 0.6 % (0.0-2.0); EOSINOPHILS # (AUTO) 0.1 /CMM (0.0-0.7); EOSINOPHILS % (AUTO) 0.4 % (0.0-6.0); HEMATOCRIT 23 % (33-45); HEMOGLOBIN 7.7 g/dL (11.5-14.8); LYMPHOCYTES # (AUTO) 1.9 /CMM (0.8-4.8); LYMPHOCYTES % (AUTO) 14.2 % (20.0-44.0); MEAN CORPUSCULAR HEMOGLOBIN 29 PG (26.0-33.0); MEAN CORPUSCULAR HGB CONC 33 g/dl (31.0-36.0); MEAN CORPUSCULAR VOLUME 87 fL (82-100); MONOCYTES # (AUTO) 0.2 /CMM (0.1-1.30); MONOCYTES % (AUTO) 1.1 % (2.0-12.0); NEUTROPHILS # (AUTO) 11.4 /CMM (1.8-8.9); NEUTROPHILS % (AUTO) 83.7 % (43.0-81.0); PLATELET COUNT (AUTO) 321 /CMM (150-450); RDW COEFFICIENT OF VARIATION 16.6 (11.5-15.0); RED BLOOD CELL COUNT(AUTO) 2.69 MIL/uL (4.0-5.2); WHITE BLOOD COUNT (AUTO) 13.6 K/uL (4.3-11.0)
[2017-03-28 07:18] LABS: CALCIUM, SERUM 7.7 mg/dL (8.5-10.1); CARBON DIOXIDE 27 mmol/L (21-32); CHLORIDE 110 mmol/L (98-107); CREATININE 0.6 mg/dL (0.6-1.3); GLUCOSE 129 mg/dL (74-106); MAGNESIUM 1.8 mg/dL (1.8-2.4); PHOSPHORUS 2.6 mg/dL (2.5-4.9); POTASSIUM 4.4 mmol/L (3.5-5.1); SODIUM SERUM 144 mmol/L (136-145); UREA NITROGEN, BLOOD 23 mg/dL (7-18)
--- NOTE | 2017-03-28 07:30 | NUR ---
PBX TEACHER AM NOTES PT IN BED, AOX 1, SPEAKS BENGALI, ON 3L O2 NC, NOT IN BENJAMIN DISTRESS, TELEMETRY READ SR HR 64, NO SIGNS OF PAIN OR DISCOMFORT, SONDRA PICC LINE IN PLACE WITH 1/2 NS AT 110 ML INFUSING WELL, SITE CLEAR. GOOD CATHETER INTACT NOTED WITH YELLOW CLOUDY & SEDIMENTS URINE OUTPUT. GTF @ 60CC/HR, NO GASTRIC RESIDUAL NOTED, FLUSHED. PT IS COMFORTABLE AT THIS TIME. SCHEDULED AM MEDS TO BE GIVEN. CALL LIGHT WITHIN REACHED, SAFETY MAINTAINED AND ISOLATION OBSERVED. WILL CONTINUE TO MONITOR.
[2017-03-28 08:00] VITALS: BP 121/49
--- NOTE | 2017-03-28 09:30 | NUR ---
LINE CAMERA OPERATOR NOTES ADMINISTERED DUE MEDS.
--- NOTE | 2017-03-28 09:58 | NUR ---
INFORMATION CLERK NOTES ACCUCHECK DONE. BS 128 MG/DL. NO INSULIN COVERAGE AT THIS TIME
[2017-03-28] MEDS: LACTOBACILLUS RHAMNOSUS GG 1 EACH CAP.SPRINK GT SCH ×2 (10:01→16:15)
[2017-03-28] MEDS: DOCUSATE SODIUM LIQ 100 MG/10 ML UDC GT SCH ×2 (10:01→16:15)
[2017-03-28] MEDS: CARBIDOPA/LEVODOPA 25/100 MG 1 UDTAB GT SCH ×3 (10:02→16:15)
[2017-03-28] MEDS: PROSOURCE / PROSTAT (PYXIS) 30 ML UDC GT SCH ×2 (10:02→16:15)
[2017-03-28] MEDS: ZINC SULFATE 220 MG CAPSULE GT SCH (10:03)
[2017-03-28] MEDS: risperiDONE 1 MG TABLET PO SCH (10:03)
[2017-03-28] MEDS: HEPARIN SODIUM, PORCINE 5000 UNITS/1 ML VIAL SQ SCH ×2 (10:04→20:31)
[2017-03-28 12:00] VITALS: BP 109/41
--- NOTE | 2017-03-28 12:30 | NUR ---
MS WISDOM NOTES CHARI NOTIFIED ABOUT PT'S VANCOCIN ORAL NOT AVAILABLE IN THE REF NOR PT'S CASSETE. Addendum: 03/28/17 at 1255 by FRANCES HORTON RN ADDENDUM CHARI FROM PHARMACY
[2017-03-28] MEDS: METRONIDAZOLE 500 MG TABLET PO SCH ×2 (12:38→20:31)
--- NOTE | 2017-03-28 12:51 | NUR ---
MS RN NOTES ACCUCHECK DONE. BS 125 MG/DL. NO INSULIN COVERAGE AT THIS TIME
[2017-03-28] MEDS: SOD FERRIC GLUC 125 MG in IV NS 0.9% 100 ML IV SCH (14:41)
--- NOTE | 2017-03-28 14:41 | NUR ---
MS RN NOTES FERRLECIT STARTED.
[2017-03-28] MEDS: GLYTROL 1,000 ML BAG GT PRN (14:43)
[2017-03-28 16:00] VITALS: BP 105/44
--- NOTE | 2017-03-28 19:32 | NUR ---
MS RN CLOSING NOTES PT IN BED, AOX 1, SPEAKS MALIAN, ON 3L O2 NC, NOT IN ANY DISTRESS, NO SIGNS OF PAIN OR DISCOMFORT, SONDRA PICC LINE IN PLACE WITH FLUSHES WELL, SITE CLEAR. GOOD CATHETER INTACT NOTED WITH YELLOW CLOUDY & SEDIMENTS URINE OUTPUT, 1200 ML OUTPUT, GTF @ 60CC/HR, NO GASTRIC RESIDUAL NOTED, FLUSHED. HOB ELEVATED. SIDE RAILS UP AND LOCKED. BED KEPT AT LOWEST POSITION. ISOLATION PRECAUTIONS OBSERVED. MADE COMFORTABLE. PRESCRIBED WOUND TREATMENT AND PM CARE DONE. TURNED AND REPOSITIONED Q 2HOURS. NO OTHER SIGNIFICANT CHANGE IN CONDITION. ALL NEEDS MET. WILL ENDORSE TO NEXT SHIFT FOR CATRACHITA.
[2017-03-28 20:00] VITALS: BP 127/46
[2017-03-29] MEDS: VANCOMYCIN HCL 125 MG/2.5 ML ORAL.SUSP PO SCH ×3 (00:53→12:18)
[2017-03-29] MEDS: BLOOD SUGAR DIAGNOSTIC 1 EACH STRIP IN SCH ×4 (00:56→12:18)
[2017-03-29 04:00] VITALS: BP 144/46
[2017-03-29] MEDS: METRONIDAZOLE 500 MG TABLET PO SCH ×2 (05:32→12:18)
[2017-03-29] MEDS: CEFAZOLIN 1 GM in IV NS 0.9% 50 ML IV SCH ×2 (05:32→12:20)
[2017-03-29] MEDS: GLYTROL 1,000 ML BAG GT PRN (05:38)
[2017-03-29] MEDS: Z GUARD REMEDY 2 OZ OINT TP PRN (05:41)
[2017-03-29] MEDS: LINEZOLID 600 MG TABLET PO SCH (05:43)
--- NOTE | 2017-03-29 06:00 | NUR ---
PT [place] ,ALERT,BUT INCOHERENT TO NON VERBAL,REACTS TO PAIN WITH FINGERSTICK BUT OTHERWISE FLAT AFFECT. FEEDING TOLERATING WELL, NO RESIDUAL, CONTINUE WITH ANTIBIOTICS, BM LIQUID TODAY, GOOD DRAINING WELL. VSS ,AFEBRILE, REFUSED OXYGEN AND PT TAKES IT OUT.93% ROOM AIR.WILL CONTINUE TO MONITOR.REMAINS IN BED, C-DIFF ISOLATION PRECAUTION OBSERVED.
[2017-03-29 06:22] LABS: BASOPHILS # (AUTO) 0.1 /CMM (0.0-0.2); BASOPHILS % (AUTO) 0.7 % (0.0-2.0); EOSINOPHILS # (AUTO) 0.2 /CMM (0.0-0.7); EOSINOPHILS % (AUTO) 1.5 % (0.0-6.0); HEMATOCRIT 24 % (33-45); HEMOGLOBIN 7.9 g/dL (11.5-14.8); LYMPHOCYTES # (AUTO) 2.1 /CMM (0.8-4.8); LYMPHOCYTES % (AUTO) 15.4 % (20.0-44.0); MEAN CORPUSCULAR HEMOGLOBIN 28 PG (26.0-33.0); MEAN CORPUSCULAR HGB CONC 33 g/dl (31.0-36.0); MEAN CORPUSCULAR VOLUME 86 fL (82-100); MONOCYTES # (AUTO) 0.7 /CMM (0.1-1.30); MONOCYTES % (AUTO) 5.6 % (2.0-12.0); NEUTROPHILS # (AUTO) 10.3 /CMM (1.8-8.9); NEUTROPHILS % (AUTO) 76.8 % (43.0-81.0); PLATELET COUNT (AUTO) 336 /CMM (150-450); RED BLOOD CELL COUNT(AUTO) 2.79 MIL/uL (4.0-5.2); WHITE BLOOD COUNT (AUTO) 13.4 K/uL (4.3-11.0)
[2017-03-29 06:25] LABS: CARBON DIOXIDE 28 mmol/L (21-32); CHLORIDE 108 mmol/L (98-107); CREATININE 0.5 mg/dL (0.6-1.3); GLUCOSE 132 mg/dL (74-106); MAGNESIUM 1.5 mg/dL (1.8-2.4); PHOSPHORUS 2.8 mg/dL (2.5-4.9); POTASSIUM 4.3 mmol/L (3.5-5.1); SODIUM SERUM 144 mmol/L (136-145); UREA NITROGEN, BLOOD 22 mg/dL (7-18)
--- NOTE | 2017-03-29 07:30 | NUR ---
PHOTORESIST CONTACT PRINTER AM NOTES PT IN BED, AOX 1, SPEAKS OCCITAN, ON 3L O2 NC, NOT IN BENJAMIN DISTRESS, TELEMETRY READ SR HR 64, NO SIGNS OF PAIN OR DISCOMFORT, SONDRA PICC LINE IN PLACE FLUSHES WELL SITE CLEAR CDI DRESSING. GOOD CATHETER INTACT NOTED WITH YELLOW CLOUDY & SEDIMENTS URINE OUTPUT. GTF @ 60CC/HR, NO GASTRIC RESIDUAL NOTED, FLUSHED. PT IS COMFORTABLE AT THIS TIME. SCHEDULED AM MEDS TO BE GIVEN. CALL LIGHT WITHIN REACHED, SAFETY MAINTAINED AND ISOLATION OBSERVED. WILL CONTINUE TO MONITOR. Addendum: 03/29/17 at 1207 by FRANCES HORTON RN CORRECTION PATIENT IS MED SURG
[2017-03-29 08:00] VITALS: BP_SYST 123; BP_DIAS 54; BP_DIAS 79
--- NOTE | 2017-03-29 09:30 | NUR ---
MS RN NOTES DUE MEDS GIVEN
[2017-03-29] MEDS: LACTOBACILLUS RHAMNOSUS GG 1 EACH CAP.SPRINK GT SCH (09:43)
[2017-03-29] MEDS: ZINC SULFATE 220 MG CAPSULE GT SCH (09:43)
[2017-03-29] MEDS: HEPARIN SODIUM, PORCINE 5000 UNITS/1 ML VIAL SQ SCH (09:44)
[2017-03-29] MEDS: PROSOURCE / PROSTAT (PYXIS) 30 ML UDC GT SCH (09:44)
[2017-03-29] MEDS: risperiDONE 1 MG TABLET PO SCH (09:44)
[2017-03-29] MEDS: CARBIDOPA/LEVODOPA 25/100 MG 1 UDTAB GT SCH ×2 (09:44→12:18)
[2017-03-29] MEDS: DOCUSATE SODIUM LIQ 100 MG/10 ML UDC GT SCH (09:44)
--- NOTE | 2017-03-29 09:45 | NUR ---
MS RN NOTES ACCUCHECK DONE. BS 143 MG/DL. 2 UNITS HUM R PER SS GIVEN
[2017-03-29] MEDS: INSULIN REGULAR, HUMAN 100 UNIT/ML 3 ML VIAL SQ PRN ×2 (10:05→12:30)
[2017-03-29] MEDS: Magnesium 1GM/D5W 100ML PREMIX 100 ML IV SCH ×2 (11:09→12:16)
--- NOTE | 2017-03-29 11:09 | NUR ---
MS RN NOTES MAGNESIUM BAG #1 STARTED.
--- NOTE | 2017-03-29 12:16 | NUR ---
MS RN NOTES MAGNESIUM BAG #2 GIVEN.
--- NOTE | 2017-03-29 12:28 | NUR ---
MS WISDOM NOTES ACCUCHECK DONE. BS 144 MG/DL. 2 UNITS HUM R PER SS GIVEN Addendum: 03/29/17 at 1235 by FRANCES HORTON RN ADDENDUM IVY TINEO STARTED.
[2017-03-29] MEDS: SOD FERRIC GLUC 125 MG in IV NS 0.9% 100 ML IV SCH (15:54)
--- NOTE | 2017-03-29 15:56 | NUR ---
ms gary payne iv started
[2017-03-29 16:00] VITALS: BP 141/78
--- NOTE | 2017-03-29 17:45 | NUR ---
MS DISCHARGE NOTES PATIENT DISCHARGED TO [facility] PER MD IN STABLE CONDITION. PROVIDED DC INSTRUCTIONS, MED RECON LIST AND HEALTH TEACHINGS. TO BE FOLLOWED UP BY FACILITY'S MD OR PER PROTOCOL. SONDRA PICC LINE PATENT CDI DRESSING. GT FLUSHED, CDI DRESSING,INTACT AND PATENT, PRESCRIBED WOUND TREATMENT DONE PRIOR TO DISCHARGE. PHOTOS OF SKIN ISSUES TAKEN AND PLACED INSIDE CHART. NO BELONGINGS. ALL PAPERWORKS SIGNED BY 2 RN. PATIENT ENDORSED TO AMBULANCE CREW/PICKED UP AND WILL TRANSPORT PATIENT TO FACILITY. REPORT GIVEN TO CORRY WISDOM FACILITY STAFF.
[2017-03-29] MEDS ORDERED: PIPERACILLIN /TAZOBACTAM 3.375 G in IV NS 0.9% 50 ML IV SCH (18:00)
[2017-03-29] MEDS ORDERED: PIPERACILLIN /TAZOBACTAM 3.375 G in IV D5W 100 ML IV SCH (21:00)
== END 2017-03-29 17:40 | DRG 871 ==
LOC: ER 21:01 → TELE 23:54 → MED 03-21 10:44 → ICU 03-22 11:35 → TELE-TD 03-27 15:30 → TELE1 03-27 17:04 → MEDSG1 03-28 12:23
PROVIDERS: ADMIT Internal Medicine; ATTEND Internal Medicine
PROC: 30233N1 Transfusion of Nonautologous Red Blood Cells into Peripheral Vein, Percutaneous Approach (ICD-10-PCS; 2017-03-25)
PROC: 02HV33Z Insertion of Infusion Device into Superior Vena Cava, Percutaneous Approach (ICD-10-PCS; principal; 2017-03-27)
PROC: B548ZZA Ultrasonography of Superior Vena Cava, Guidance (ICD-10-PCS; 2017-03-27)
DX: A41.9 Sepsis, unspecified organism (principal); N17.0 Acute kidney failure with tubular necrosis; I21.A1 Myocardial infarction type 2; R65.21 Severe sepsis with septic shock; G93.41 Metabolic encephalopathy; L89.319 Pressure ulcer of right buttock, unspecified stage; A04.72 Enterocolitis due to Clostridium difficile, not specified as recurrent; L89.329 Pressure ulcer of left buttock, unspecified stage; E11.22 Type 2 diabetes mellitus with diabetic chronic kidney disease; I13.0 Hypertensive heart and chronic kidney disease with heart failure and stage 1 through stage 4 chronic kidney disease, or unspecified chronic kidney disease; I50.32 Chronic diastolic (congestive) heart failure; E87.0 Hyperosmolality and hypernatremia; N39.0 Urinary tract infection, site not specified; N20.1 Calculus of ureter; R18.8 Other ascites; K57.32 Diverticulitis of large intestine without perforation or abscess without bleeding; K42.0 Umbilical hernia with obstruction, without gangrene; G30.9 Alzheimer's disease, unspecified; F02.80 Dementia in other diseases classified elsewhere, unspecified severity, without behavioral disturbance, psychotic disturbance, mood disturbance, and anxiety; E86.0 Dehydration; D50.9 Iron deficiency anemia, unspecified; K21.9 Gastro-esophageal reflux disease without esophagitis; Z99.81 Dependence on supplemental oxygen; I25.10 Atherosclerotic heart disease of native coronary artery without angina pectoris; N18.9 Chronic kidney disease, unspecified; Z96.641 Presence of right artificial hip joint; Z93.1 Gastrostomy status; E78.5 Hyperlipidemia, unspecified; M19.90 Unspecified osteoarthritis, unspecified site; F32.9 Major depressive disorder, single episode, unspecified; G47.00 Insomnia, unspecified; Z79.4 Long term (current) use of insulin; Z79.899 Other long term (current) drug therapy; E03.9 Hypothyroidism, unspecified; G89.4 Chronic pain syndrome; N20.0 Calculus of kidney; N13.9 Obstructive and reflux uropathy, unspecified; R13.10 Dysphagia, unspecified; K43.9 Ventral hernia without obstruction or gangrene
CPT/HCPCS: 36415; 36569; 71045-TC; 71250-TC; 76770-TC; 80048-TC; 80053-TC; 80076-TC; 80150; 81000-TC; 82272-TC; 82728-TC; 82962-TC; 83540-TC; 83605-TC; 83735-TC; 84100-TC; 84155; 84165; 84439-TC; 84443-TC; 84484-TC; 85025-TC; 85027-TC; 85730-TC; 86850-TC; 86921-TC; 87040-TC; 87081-TC; 87086-TC; 87186-TC; 87400; 93307-TC; A4216; A4606; A6402; J0278; J0690; J1450; J1644; J1650; J1815; J2020; J2185; J2543; J2916; J3370; J3475; J3490; J7030; J7060; P9016-BL; Z7610

== ENCOUNTER 2017-04-21 08:25 | Inpatient (IN) | payer MEDICARE, OTHER ==
[~2017-04-21] VITALS: Ht 165.1 cm; Wt 77.6 kg
[~2017-04-21 08:25] MED LIST changes: +AMIN30LI27 GT; +ENOX40DI SQ; +HYDR-552 GT; +L.AC460C GT; +MAG30ORA GT; -MERO1PIG IV; +MULT9LIQ GT; -VANC125C11 PO
--- NOTE | 2017-04-21 08:25 | NUR ---
BBPA FROM [facility] [place]: LEAKING G-TUBE SINCE YESTERDAY. VOMITING x 1 DAY. NAD NOTED. PT PLACED ON GOWN AND MONITOR. DR NEIL AT BEDSIDE FOR EVAL.
[2017-04-21] MEDS ORDERED: IV NS 0.9% 1,000 ML BAG IV ONE (09:00)
[2017-04-21] MEDS ORDERED: PIPERACILLIN /TAZOBACTAM 3.375 G in IV D5W 50 ML IV ONE (09:00)
[2017-04-21] MEDS ORDERED: VANCOMYCIN 1 GM in IV D5W 250 ML IV ONE (09:00)
[2017-04-21 09:44] LABS: CALCIUM, SERUM 10.2 mg/dL (8.5-10.1); CARBON DIOXIDE 35 mmol/L (21-32); CHLORIDE 98 mmol/L (98-107); CREATININE 1.8 mg/dL (0.6-1.3); GLUCOSE 179 mg/dL (74-106); POTASSIUM 5.3 mmol/L (3.5-5.1); SODIUM SERUM 146 mmol/L (136-145); UREA NITROGEN, BLOOD 76 mg/dL (7-18)
[2017-04-21 09:48] LABS: BASOPHILS # (AUTO) 0.1 /CMM (0.0-0.2); BASOPHILS % (AUTO) 0.3 % (0.0-2.0); HEMATOCRIT 28 % (33-45); HEMOGLOBIN 8.8 g/dL (11.5-14.8); LYMPHOCYTES # (AUTO) 1.5 /CMM (0.8-4.8); LYMPHOCYTES % (AUTO) 5.2 % (20.0-44.0); MEAN CORPUSCULAR HEMOGLOBIN 27 PG (26.0-33.0); MEAN CORPUSCULAR HGB CONC 32 g/dl (31.0-36.0); MEAN CORPUSCULAR VOLUME 85 fL (82-100); MONOCYTES # (AUTO) 0.2 /CMM (0.1-1.30); MONOCYTES % (AUTO) 0.7 % (2.0-12.0); NEUTROPHILS # (AUTO) 26.2 /CMM (1.8-8.9); NEUTROPHILS % (AUTO) 93.8 % (43.0-81.0); RDW COEFFICIENT OF VARIATION 18.3 (11.5-15.0); RED BLOOD CELL COUNT(AUTO) 3.26 MIL/uL (4.0-5.2)
--- NOTE | 2017-04-21 09:48 | NUR ---
PATIENT TRANSPORTED FOR CT VIA GURNEY.
[2017-04-21 09:49] LABS: ALANINE AMINOTRANSFERASE 22 U/L (12-78); ALBUMIN 2.1 g/dL (3.4-5.0); ALKALINE PHOSPHATASE 250 U/L (46-116); ASPARTATE AMINOTRANSFERASE 25 U/L (15-37); BILIRUBIN,DIRECT 0.1 mg/dL (0.0-0.2); BILIRUBIN,TOTAL 0.4 mg/dL (0.2-1.0); TOTAL PROTEIN, SERUM 9.5 g/dL (6.4-8.2)
[2017-04-21 09:51] LABS: TROPONIN I < 0.017 ng/mL (0.00-0.056)
[2017-04-21 09:53] LABS: PLATELET COUNT (AUTO) 1034 /CMM (150-450)
[2017-04-21 09:54] LABS: INR 1.09 (0.87-1.13)
[2017-04-21 10:03] LABS: LYMPHOCYTES % (MANUAL) 7 % (16-48); MONOCYTES % (MANUAL) 4 % (0-11.0); NEUTROPHILS % (MANUAL) 89 (42-76)
[2017-04-21] MEDS ORDERED: RISP0.2515 GT (10:30)
[2017-04-21] MEDS ORDERED: ZINC220C8 GT (10:30)
[2017-04-21] MEDS ORDERED: LACT1CAP72 GT (10:30)
--- NOTE | 2017-04-21 10:36 | NUR ---
PATIENT'S DAUGHTER AT BS
[2017-04-21 10:45] LABS: APPEARANCE,URINE Turbid (CLEAR); BILIRUBIN,URINE SMALL (NEGATIVE); BLOOD, URINE Moderate Ery/uL (NEGATIVE); COLOR,URINE Yellow (YELLOW); KETONES,URINE Trace (NEGATIVE); LEUKOCYTE ESTERASE ,URINE Large (NEGATIVE); NITRITE, URINE Negative (NEGATIVE); PH,URINE 5.5 (5.0-8.0); PROTEIN,URINE >=300 mg/dl (NEGATIVE); UGLUCOSE Negative (NEGATIVE); UROBILINOGEN,URINE 0.2 EU/dL (0.2)
[2017-04-21 10:58] LABS: BACTERIA,URINE Many /HPF (None Seen); SQUAMOUS EPITHELIAL CELL,UR Few /HPF (None Seen); WBC,URINE 80-100 /HPF (0-3)
--- NOTE | 2017-04-21 11:10 | NUR ---
CONTACT INFO: ELISHA, PATIENT'S GRANDDAUGHTER [phone].
--- NOTE | 2017-04-21 11:11 | NUR ---
MATTHEW DOUGLAS (POA) CONTACT INFO
--- NOTE | 2017-04-21 13:16 | NUR ---
REPORT GIVEN TO ALYX DANIELS FOR [facility] BALDEV 119-2
--- NOTE | 2017-04-21 13:40 | NUR ---
BALDEV RN NOTES ADMITTED PATIENT FROM ER, DX SEPSIS WITH CHOLECYSTITIS BY DR. ALVARADO, CONFUSED, OPENS EYES, NONVERBAL, TELEMETRY READS SR TO ST HR 105 WITH BBB, NO SIGNS OF PAIN, ELVIN G 20 AND RT HAND G 20, FLUSHES WELL BOTH SITES CLEAR. NPO FOR NOW. GT SITE WITH FECALOID MATERIAL DRAINAGE, CONVATEC BAG PLACED AROUND THE GT SITE. PHOTOS OF SKIN ISSUES TAKEN AND PLACED INSIDE THE CHART. VITAL SIGNS TAKEN. NEEDS ANTICIPATED. WILL CONTINUE TO MONITOR.
[2017-04-21] MEDS ORDERED: ZOLPIDEM TARTRATE 5 MG TABLET PO PRN (14:30)
[2017-04-21] MEDS ORDERED: Z GUARD REMEDY 2 OZ OINT TP PRN (14:30)
[2017-04-21] MEDS ORDERED: ONDANSETRON HCL/PF 4 MG/2 ML VIAL IVP PRN (14:30)
[2017-04-21] MEDS ORDERED: ACETAMINOPHEN 325 MG TABLET PO PRN (14:30)
[2017-04-21] MEDS ORDERED: FEE PK DOSING 1 MIN EA MC ONE (14:44)
--- NOTE | 2017-04-21 15:20 | NUR ---
BALDEV RN NOTES DR. ALVARADO AWARE REGARDING MEDICATIONS FOR RECONCILIATION. PER HIM PT, IS NPO AND WILL NOT GIVE ANYTHING FOR NOW.
[2017-04-21 16:00] VITALS: BP 100/44
[2017-04-21] MEDS: MEROPENEM 500 MG in IV NS 0.9% 50 ML IV SCH (16:00)
[2017-04-21] MEDS: PANTOPRAZOLE 40 MG VIAL IV SCH (16:02)
[2017-04-21] MEDS: IV NS 0.9% 1,000 ML IV PRN (16:02)
[2017-04-21 16:16] LABS: IRON, SERUM 20 ug/dl (50-175); TOTAL IRON BINDING CAPACITY 178 ug/dl (250-450)
--- NOTE | 2017-04-21 16:25 | NUR ---
BALDEV RN NOTES NGT PLACED.
[2017-04-21 16:27] LABS: LIPASE 1184 U/L (73-393)
--- NOTE | 2017-04-21 16:41 | NUR ---
BALDEV RN NOTES NOTIFIED DEQUAN SHAIKH CHEMICAL PLANT TECHNICAL DIRECTOR, UNABLE TO DO MRI, PATIENT CAN NOT KEEP STILL. PER DEQUAN ITS OKAY.
--- NOTE | 2017-04-21 16:59 | NUR ---
BALDEV RN NOTES PLACED A CALL TO PHARMACY SPOKE WITH ANASTASIIA SANCHEZ PT HAS UNVERIFIED REGLAN IV AT 1530 AND MERREM IV AT 1600 NOT IN THE FLOOR YET.
[2017-04-21] MEDS: METOCLOPRAMIDE HCL 10 MG/2 ML VIAL IV SCH (18:00)
--- NOTE | 2017-04-21 18:18 | NUR ---
BALDEV RN NOTES MERREM IV AND REGLAN IV NOT AVAILABLE NOT ADMINISTERED. CHARGE NURSE SOON AWARE.
--- NOTE | 2017-04-21 18:53 | NUR ---
BALDEV RN NOTES NO OTHER SIGNIFICANT CHANGE IN CONDITION. ALL NEEDS MET. IVF INFUSING WELL TO RIGHT HAND. NGT TO LIS WITH 400 ML OUTPUT. WILL ENDORSE TO NEXT SHIFT FOR CATRACHITA.
[2017-04-21 20:00] VITALS: BP 106/46
--- NOTE | 2017-04-21 20:00 | NUR ---
BALDEV RN INITIAL NOTES RECEIVED PT OPENS EYES, NONVERBAL, TELEMETRY READS SR TO ST HR 109 WITH BBB, NO SIGNS OF PAIN, ELVIN G 20 AND RT HAND G 20, FLUSHES WELL BOTH SITES CLEAR. NPO FOR NOW. GT SITE WITH FECALOID MATERIAL DRAINAGE, CONVATEC BAG PLACED AROUND THE GT SITE. PHOTOS OF . VITAL SIGNS TAKEN. NEEDS ANTICIPATED. WILL CONTINUE TO MONITOR. KEPT CLEAN AND DRY.
[2017-04-21] MEDS: FLUCONAZOLE IN NS,PREMIX 200 MG in PREMIX 1 EA IV SCH ×2 (23:20)
[2017-04-21] MEDS: METRONIDAZOLE 500MG/ NS 100ML 500 MG in PREMIX 1 EA IV SCH (23:21)
[2017-04-21] MEDS: VANCOMYCIN 0.75 GM in IV D5W 250 ML IV SCH (23:21)
[2017-04-22 00:30] VITALS: BP 110/47
[2017-04-22] MEDS: METOCLOPRAMIDE HCL 10 MG/2 ML VIAL IV SCH ×3 (02:13→17:32)
[2017-04-22] MEDS ORDERED: MEROPENEM 500 MG VIAL IV ONE (03:13)
[2017-04-22] MEDS: MEROPENEM 500 MG in IV NS 0.9% 50 ML IV SCH ×2 (03:20→17:32)
[2017-04-22 04:00] VITALS: BP 105/42
[2017-04-22] MEDS: METRONIDAZOLE 500MG/ NS 100ML 500 MG in PREMIX 1 EA IV SCH ×3 (04:40→21:25)
--- NOTE | 2017-04-22 06:29 | NUR ---
BALDEV RN CLOSING NOTES ENDORSED PT EYES CLOSED, NONVERBAL, TELEMETRY READS SR TO ST HR 109 WITH BBB, NO SIGNS OF PAIN, ELVIN G 20 AND RT HAND G 20, FLUSHES WELL BOTH SITES CLEAR. NPO FOR NOW. GT SITE WITH FECALOID MATERIAL DRAINAGE, CONVATEC BAG PLACED AROUND THE GT. NGT CONNECTED TO LIS, 1100 ML O/P THROUGH SHIFT. NEEDS ANTICIPATED. WILL CONTINUE TO MONITOR. KEPT CLEAN AND DRY.
[2017-04-22 07:28] LABS: BASOPHILS % (AUTO) 0.1 % (0.0-2.0); HEMATOCRIT 25 % (33-45); LYMPHOCYTES # (AUTO) 2.1 /CMM (0.8-4.8); LYMPHOCYTES % (AUTO) 6.9 % (20.0-44.0); MEAN CORPUSCULAR HEMOGLOBIN 28 PG (26.0-33.0); MEAN CORPUSCULAR HGB CONC 32 g/dl (31.0-36.0); MEAN CORPUSCULAR VOLUME 87 fL (82-100); MONOCYTES # (AUTO) 0.2 /CMM (0.1-1.30); MONOCYTES % (AUTO) 0.6 % (2.0-12.0); NEUTROPHILS # (AUTO) 28.1 /CMM (1.8-8.9); NEUTROPHILS % (AUTO) 92.4 % (43.0-81.0); PLATELET COUNT (AUTO) 827 /CMM (150-450); RDW COEFFICIENT OF VARIATION 18.6 (11.5-15.0); RED BLOOD CELL COUNT(AUTO) 2.87 MIL/uL (4.0-5.2)
[2017-04-22 07:37] LABS: ALANINE AMINOTRANSFERASE 16 U/L (12-78); ALBUMIN 1.8 g/dL (3.4-5.0); ALKALINE PHOSPHATASE 176 U/L (46-116); ASPARTATE AMINOTRANSFERASE 22 U/L (15-37); BILIRUBIN,TOTAL 0.4 mg/dL (0.2-1.0); CALCIUM, SERUM 8.5 mg/dL (8.5-10.1); CARBON DIOXIDE 32 mmol/L (21-32); CHLORIDE 104 mmol/L (98-107); CREATININE 2.1 mg/dL (0.6-1.3); GLUCOSE 137 mg/dL (74-106); MAGNESIUM 2.6 mg/dL (1.8-2.4); POTASSIUM 4.8 mmol/L (3.5-5.1); SODIUM SERUM 148 mmol/L (136-145); TOTAL PROTEIN, SERUM 8.3 g/dL (6.4-8.2)
[2017-04-22 07:43] LABS: WHITE BLOOD COUNT (AUTO) 30.4 K/uL (4.3-11.0)
[2017-04-22 07:58] LABS: PHOSPHORUS 5.4 mg/dL (2.5-4.9)
[2017-04-22 07:59] LABS: CHOLESTEROL 77 mg/dL (<200); HDL CHOLESTEROL 18 mg/dL (40-60); LDL 42 mg/dL (0-99); TRIGLYCERIDES 156 mg/dL (30-150)
[2017-04-22 08:00] VITALS: BP 105/44
--- NOTE | 2017-04-22 08:00 | NUR ---
TD/RN AM SHIFT INITIAL NOTES RECEIVED PT ASLEEP IN BED, AROUSEABLE, PT OPEN EYES SPONTANEOUSLY, NON-VERBAL, NO GRIMACING NOTED, NO ACUTE DISTRESS OR FEVER. ON 2L O2 VIA N/C SATURATING @ 91%, NOTED WITH DIMINISHED LUNG SOUNDS, RESPIRATIONS EVEN & UNLABORED. ON TELE MONITORING, SINUS RHYTHM, HR 69. PT WITH ON GOING IV INFUSION OF NS @ 75CC/HR, IV SITES PATENT WITH NO S/S OF INFECTION. PT PLACED ON NPO, NG TUBE ON LEFT NARE INTACT FOR LOW INTERMITTENT SUCTIONING WITH 20mmHG NOTED WITH LIQUID DARK GREEN GASTRIC CONTENT. SCHEDULED AM MEDS GIVEN, COLOSTOMY BAG EMPTY. PT IS COMFORTABLE AT THIS TIME. CL WITHIN REACHED AND SAFETY MAINTAINED. ON GOING MONITORING.
[2017-04-22 08:03] LABS: UREA NITROGEN, BLOOD 85 mg/dL (7-18)
[2017-04-22] MEDS: VANCOMYCIN 0.75 GM in IV D5W 250 ML IV SCH ×2 (08:49→22:46)
[2017-04-22] MEDS: PANTOPRAZOLE 40 MG VIAL IV SCH (08:50)
[2017-04-22] MEDS ORDERED: DIATR MEGLU/DIATRIZOATE SODIUM 30 ML BOTTLE (GASTROGRAPHIN) ONE (09:10)
[2017-04-22 09:54] LABS: BAND % (MANUAL) 3 % (0.0-5.0); LYMPHOCYTES % (MANUAL) 7 % (16-48); MONOCYTES % (MANUAL) 3 % (0-11.0); NEUTROPHILS % (MANUAL) 87 (42-76)
[2017-04-22] MEDS: IV NS 0.9% 1,000 ML IV PRN (10:02)
[2017-04-22 12:00] VITALS: BP 103/43
--- NOTE | 2017-04-22 12:00 | NUR ---
TD/RN NOON ROUNDS PT NOTED WITH FEVER, COOLING MEASURES RENDERED. MONITORING.
--- NOTE | 2017-04-22 12:08 | NUR ---
TD/RN ROUNDS - DR. ALVARADO UPDATED PT'S CONDITION. PT SEEN & EXAMINED BY DR. ALVARADO. WITH VERBAL ORDER RECEIVED TO CHANGE CODE STATUS FROM DNR TO DNR & DNI DISCUSSED WITH FAMILY PER MD. ORDER CARRIED, CHARGE NURSE MADE AWARE. MONITORING CONTINUED.
[2017-04-22] MEDS ORDERED: IV NS 0.9% 1,000 ML IV PRN (12:29)
[2017-04-22] MEDS: ACETAMINOPHEN 650 MG/SUPP.RECT RC PRN (13:00)
[2017-04-22] MEDS: SOD FERRIC GLUC 125 MG in IV NS 0.9% 100 ML IV SCH (15:29)
[2017-04-22 16:00] VITALS: BP 106/37
[2017-04-22 16:08] LABS: APPEARANCE,URINE CLEAR (CLEAR); BILIRUBIN,URINE 1+ (NEGATIVE); BLOOD, URINE 1+ Ery/uL (NEGATIVE); COLOR,URINE YELLOW (YELLOW); KETONES,URINE NEGATIVE (NEGATIVE); LEUKOCYTE ESTERASE ,URINE 2+ (NEGATIVE); NITRITE, URINE NEGATIVE (NEGATIVE); PROTEIN,URINE 1+ mg/dl (NEGATIVE); UGLUCOSE NEGATIVE (NEGATIVE); UROBILINOGEN,URINE 0.2 EU/dL (0.2)
[2017-04-22 16:15] LABS: BACTERIA,URINE Moderate /HPF (None Seen); SQUAMOUS EPITHELIAL CELL,UR Few /HPF (None Seen); URINE AMORPHOUS URATE Many /HPF (None Seen); WBC,URINE 21-50 /HPF (0-3)
[2017-04-22 16:19] LABS: CREATININE, URINE 90.6 MG/DL (30.0-125.0); URINE TOTAL PROTEIN 130.5 mg/dL (0-11.9)
--- NOTE | 2017-04-22 17:30 | NUR ---
TD/RN AFTERNOON ROUNDS PM CARE PROVIDED. PT NOTED WITH FECES COMING OUT OF HER VAGINAL CANAL. NOTIFIED DR. ALVARADO OF OBSERVATION, NO NEW ORDERS RECEIVED. ON GOING MONITORING.
[2017-04-22 17:41] LABS: EOSINOPHIL,URINE None Seen
[2017-04-22 18:10] LABS: OCCULT BLOOD STOOL NEGATIVE (NEGATIVE)
--- NOTE | 2017-04-22 19:30 | NUR ---
BALDEV/RN NOTES: RECEIVED PT. IN BED SLEEPING W/ HOB ELEVATED. W/ O2 @ 2LPM VIA N/C SAT. 98%. OPENS EYES TO TACTILE STIMULI. NON VERBAL. NO FACIAL GRIMACES OR FACIAL MOANING NOTED. ON TELE SR 76. PT. NOTED DIMINISHED LUNGS SOUNDS THROUGHOUT. IS NPO STATUS. HAS NG TUBE ON LEFT NARE INTACT AND PATENT VIA LOW INTERMITTENT SUCTION W/ 20 mmHG NOTED W/ DARK GREEN GASTRIC CONTENT. HAS IVF GOING ON VIA RH G 20 PATENT AND INTACT W/ NO S/S OF INFILTRATION/INFECTION NOTED. ALL NEEDS MEET AND ATTENDED. CALL LIGHT W/ REACH.
--- NOTE | 2017-04-22 19:34 | NUR ---
TD/RN AM SHIFT END NOTES ALL NEEDS MET. PT ENDORSED TO PM NURSE TO CONTINUE CARE. CL WITHIN REACHED AND SAFETY MAINTAINED.
[2017-04-22 20:00] VITALS: BP 96/38
[2017-04-22] MEDS: FLUCONAZOLE IN NS,PREMIX 200 MG in PREMIX 1 EA IV SCH ×2 (20:39)
[2017-04-23] VITALS (8 sets, daily range): BP systolic 89–171; BP diastolic 26–65
[2017-04-23] MEDS: METOCLOPRAMIDE HCL 10 MG/2 ML VIAL IV SCH ×3 (01:35→18:05)
[2017-04-23] MEDS: MEROPENEM 500 MG in IV NS 0.9% 50 ML IV SCH ×2 (03:32→18:05)
[2017-04-23] MEDS: METRONIDAZOLE 500MG/ NS 100ML 500 MG in PREMIX 1 EA IV SCH ×3 (05:01→20:57)
--- NOTE | 2017-04-23 05:54 | NUR ---
BALDEV/RN NOTES: PAGED JACKIE DYNAMICIST REGARDING PT. BP 89/33. ALSO MADE AWARE OF PT. DX: NPO STATUS AND SHE IS ON NS @ 100CC/HR. PER JACKIE THAT IS FINE.
[2017-04-23 07:29] LABS: CREATINE KINASE, TOTAL 21 U/L (26-192)
[2017-04-23 07:30] LABS: ALANINE AMINOTRANSFERASE 14 U/L (12-78); ALBUMIN 1.5 g/dL (3.4-5.0); ALKALINE PHOSPHATASE 140 U/L (46-116); ASPARTATE AMINOTRANSFERASE 21 U/L (15-37); BILIRUBIN,TOTAL 0.3 mg/dL (0.2-1.0); CALCIUM, SERUM 7.8 mg/dL (8.5-10.1); CARBON DIOXIDE 29 mmol/L (21-32); CHLORIDE 112 mmol/L (98-107); CREATININE 1.9 mg/dL (0.6-1.3); GLUCOSE 103 mg/dL (74-106); MAGNESIUM 2.5 mg/dL (1.8-2.4); PHOSPHORUS 5.1 mg/dL (2.5-4.9); POTASSIUM 4.1 mmol/L (3.5-5.1); SODIUM SERUM 151 mmol/L (136-145)
--- NOTE | 2017-04-23 07:38 | NUR ---
BALDEV/RN NOTES: NO ACUTE DISTRESS NOTED DURING THIS SHIFT. REPORT GIVEN TO NEXT SHIFT NURSE FOR CATRACHITA.
[2017-04-23 07:40] LABS: UREA NITROGEN, BLOOD 85 mg/dL (7-18)
[2017-04-23 07:42] LABS: BASOPHILS # (AUTO) 0.2 /CMM (0.0-0.2); BASOPHILS % (AUTO) 0.8 % (0.0-2.0); EOSINOPHILS # (AUTO) 0.1 /CMM (0.0-0.7); EOSINOPHILS % (AUTO) 0.2 % (0.0-6.0); HEMATOCRIT 23 % (33-45); LYMPHOCYTES # (AUTO) 2.1 /CMM (0.8-4.8); LYMPHOCYTES % (AUTO) 7.7 % (20.0-44.0); MEAN CORPUSCULAR HEMOGLOBIN 27 PG (26.0-33.0); MEAN CORPUSCULAR HGB CONC 30 g/dl (31.0-36.0); MEAN CORPUSCULAR VOLUME 89 fL (82-100); MONOCYTES # (AUTO) 1.1 /CMM (0.1-1.30); NEUTROPHILS # (AUTO) 23.5 /CMM (1.8-8.9); NEUTROPHILS % (AUTO) 87.3 % (43.0-81.0); PLATELET COUNT (AUTO) 600 /CMM (150-450); RDW COEFFICIENT OF VARIATION 18.3 (11.5-15.0); RED BLOOD CELL COUNT(AUTO) 2.54 MIL/uL (4.0-5.2); WHITE BLOOD COUNT (AUTO) 26.9 K/uL (4.3-11.0)
[2017-04-23 07:50] LABS: HEMOGLOBIN 6.8 g/dL (11.5-14.8)
--- NOTE | 2017-04-23 08:00 | NUR ---
TD/RN AM SHIFT INITIAL NOTES RECEIVED PT ASLEEP IN BED, AROUSEABLE, PT OPEN EYES SPONTANEOUSLY, NON-VERBAL, NO GRIMACING NOTED, NO ACUTE DISTRESS OR FEVER. ON 2L O2 VIA N/C SATURATING @ 97%, LUNG SOUNDS CLEAR, RESPIRATIONS EVEN & UNLABORED. ON TELE MONITORING, SINUS RHYTHM, HR 69. PT WITH ON GOING IV INFUSION OF NS @ 75CC/HR, IV SITES PATENT WITH NO S/S OF INFECTION. PT PLACED ON NPO, NG TUBE ON LEFT NARE INTACT FOR LOW INTERMITTENT SUCTIONING WITH 20mmHG, NO GASTRIC OUTPUT SINCE LAST SHIFT. GT SITE WITH COLOSTOMY BAG PLACED, NO OUTPUT. SCHEDULED AM MEDS GIVEN, COLOSTOMY BAG EMPTY. PT IS COMFORTABLE AT THIS TIME. CL WITHIN REACHED AND SAFETY MAINTAINED. ON GOING MONITORING.
--- NOTE | 2017-04-23 09:15 | NUR ---
TELE1/RN ROUNDS - DR. ALVARADO UPDATED PT'S CONDITION, IS AWARE OF CRITICAL LAB RESULT OF HGB 6.8, NO NEW ORDER FOR RECEIVED, PT HAS ON GOING ORDER FOR IRON IV. MONITORING CONTINUED.
[2017-04-23] MEDS: PANTOPRAZOLE 40 MG VIAL IV SCH (09:16)
[2017-04-23 11:24] LABS: BAND % (MANUAL) 4 % (0.0-5.0); LYMPHOCYTES % (MANUAL) 8 % (16-48); NEUTROPHILS % (MANUAL) 86 (42-76)
[2017-04-23 11:25] LABS: EOSINOPHILS % (MANUAL) 1 % (0-4); MONOCYTES % (MANUAL) 0 % (0-11.0); MYELOCYTES % 1 % (0-0)
[2017-04-23] MEDS: IV D5W 1,000 ML IV PRN (11:37)
[2017-04-23] MEDS: ACETAMINOPHEN 650 MG/SUPP.RECT RC PRN ×2 (13:43→21:11)
[2017-04-23] MEDS: SOD FERRIC GLUC 125 MG in IV NS 0.9% 100 ML IV SCH (15:25)
--- NOTE | 2017-04-23 17:30 | NUR ---
TELE1/RN AFTERNOON ROUNDS PM CARE PROVIDED, NO ACUTE CHANGE OF CONDITION. MONITORING CONTINUED.
--- NOTE | 2017-04-23 19:27 | NUR ---
TELE1/RN AM SHIFT END NOTES NO ACUTE CHANGE OF CONDITION NOTED. ALL NEEDS MET. PT ENDORSED TO PM NURSE TO CONTINUE CARE. CL WITHIN REACHED AND SAFETY MAINTAINED.
[2017-04-23] MEDS: FLUCONAZOLE IN NS,PREMIX 200 MG in PREMIX 1 EA IV SCH ×2 (20:57)
[2017-04-23] MEDS ORDERED: VANCOMYCIN 0.75 GM in IV D5W 250 ML IV SCH (22:00)
[2017-04-24] VITALS: BP 96/43
[2017-04-24] MEDS: METOCLOPRAMIDE HCL 10 MG/2 ML VIAL IV SCH ×2 (02:00→10:00)
[2017-04-24 04:00] VITALS: BP 115/44
[2017-04-24] MEDS: METRONIDAZOLE 500MG/ NS 100ML 500 MG in PREMIX 1 EA IV SCH ×2 (04:05→13:20)
[2017-04-24] MEDS: MEROPENEM 500 MG in IV NS 0.9% 50 ML IV SCH (04:05)
[2017-04-24 07:20] LABS: CALCIUM, SERUM 7.8 mg/dL (8.5-10.1); CARBON DIOXIDE 31 mmol/L (21-32); CHLORIDE 115 mmol/L (98-107); CREATININE 1.5 mg/dL (0.6-1.3); GLUCOSE 107 mg/dL (74-106); POTASSIUM 3.5 mmol/L (3.5-5.1); SODIUM SERUM 153 mmol/L (136-145); UREA NITROGEN, BLOOD 67 mg/dL (7-18)
--- NOTE | 2017-04-24 07:30 | NUR ---
PLASMA SPECIALIST INITIAL NOTES RECEIVED PATIENT IN BED, ABLE TO OPEN EYES, NONVERBAL, SHAKINESS NOTED DUE TO [place] DISEASE, ON 2L NC, NPO AT THIS TIME, L NARE NGT TUBE TO INTERMITTENT SUCTION SOME GREENISH DC NOTED. D5W @ 100ML/HR, ON TELE MONITOR 76 HR BBB, IN DIAPER, BED IN LOW AND LOCKED POSITION CALL LIGHT WITHIN REACH, WILL CONTINUE TO MONITOR
[2017-04-24 08:00] VITALS: BP 110/37
[2017-04-24 09:16] LABS: BASOPHILS # (AUTO) 0.1 /CMM (0.0-0.2); BASOPHILS % (AUTO) 0.5 % (0.0-2.0); EOSINOPHILS # (AUTO) 0.1 /CMM (0.0-0.7); EOSINOPHILS % (AUTO) 0.4 % (0.0-6.0); HEMATOCRIT 22 % (33-45); LYMPHOCYTES # (AUTO) 2.1 /CMM (0.8-4.8); LYMPHOCYTES % (AUTO) 8.6 % (20.0-44.0); MEAN CORPUSCULAR HEMOGLOBIN 28 PG (26.0-33.0); MEAN CORPUSCULAR HGB CONC 31 g/dl (31.0-36.0); MEAN CORPUSCULAR VOLUME 89 fL (82-100); NEUTROPHILS # (AUTO) 21.6 /CMM (1.8-8.9); NEUTROPHILS % (AUTO) 86.5 % (43.0-81.0); PLATELET COUNT (AUTO) 604 /CMM (150-450); RDW COEFFICIENT OF VARIATION 18.5 (11.5-15.0); RED BLOOD CELL COUNT(AUTO) 2.45 MIL/uL (4.0-5.2)
[2017-04-24] MEDS: PANTOPRAZOLE 40 MG VIAL IV SCH (09:24)
[2017-04-24 09:39] LABS: HEMOGLOBIN 6.7 g/dL (11.5-14.8)
[2017-04-24] MEDS: IV D5W 1,000 ML IV PRN (10:11)
--- NOTE | 2017-04-24 10:56 | NUR ---
PLASTICS SPREADING MACHINE OPERATOR NOTES PATIENT FAMILY SEEN BY DR ALVARADO TO DISCUSS PLAN OF CARE AND DISCHARGE.
[2017-04-24 12:00] VITALS: BP 101/34
[2017-04-24 12:51] LABS: BAND % (MANUAL) 5 % (0.0-5.0); LYMPHOCYTES % (MANUAL) 21 % (16-48); MONOCYTES % (MANUAL) 8 % (0-11.0); NEUTROPHILS % (MANUAL) 66 (42-76)
[2017-04-24] MEDS: SOD FERRIC GLUC 125 MG in IV NS 0.9% 100 ML IV SCH (14:00)
--- NOTE | 2017-04-24 14:00 | NUR ---
COMPUTER LANGUAGE CODER NOTES PATIENT DC ORDERS GIVEN BY DR ALVARADO, CALOS NGT, PATIENT TO HAVE HOSPICE INITIATED ONCE SHE IS DISCHARGE, FAMILY AWARE, PATIENT TO BE DC TO [facility], ALL DISCHARGE PAPERWORK SIGNED, ALL TEACHING DONE, ALL NEEDS MET, PATIENT CLEANED, BELONGINGS LIST SIGNED, IV DC WITH TIP INTACT, WOUND PICTURE OF SACRAL WOUND DONE BY PLUM PACKER, REPORT GIVEN TO HERBER WISDOM IN [facility] FOR CONTINUITY OF CARE.
[2017-04-25 08:10] LABS: *SPE A/G RATIO 0.4 (0.7-1.7); *SPE ALBUMIN 1.7 g/dL (2.9-4.4); *SPE ALPHA-1-GLOBULIN 0.4 g/dL (0.0-0.4); *SPE ALPHA-2-GLOBULIN 1.3 g/dL (0.4-1.0); *SPE BETA GLOBULIN 1.1 g/dL (0.7-1.3); *SPE GLOBULIN, TOTAL 4.3 g/dL (2.2-3.9); *SPE M-SPIKE Not Observed g/dL (Not Observed); *SPEGAMMA GLOBULIN 1.5 g/dL (0.4-1.8)
[2017-04-25 12:18] LABS: PTH, INTACT 135 pg/mL (15-65)
== END 2017-04-24 14:54 | DRG 393 ==
LOC: ER 08:29 → TELE-TD 12:51 → TELE1 04-23 09:33
PROVIDERS: ADMIT Internal Medicine; ATTEND Internal Medicine
DX: K94.23 Gastrostomy malfunction (principal); N17.0 Acute kidney failure with tubular necrosis; R65.20 Severe sepsis without septic shock; A41.9 Sepsis, unspecified organism; G93.41 Metabolic encephalopathy; E44.0 Moderate protein-calorie malnutrition; E87.0 Hyperosmolality and hypernatremia; C78.00 Secondary malignant neoplasm of unspecified lung; I50.32 Chronic diastolic (congestive) heart failure; K57.32 Diverticulitis of large intestine without perforation or abscess without bleeding; I13.0 Hypertensive heart and chronic kidney disease with heart failure and stage 1 through stage 4 chronic kidney disease, or unspecified chronic kidney disease; N17.9 Acute kidney failure, unspecified; N13.2 Hydronephrosis with renal and ureteral calculous obstruction; K56.7 Ileus, unspecified; N39.0 Urinary tract infection, site not specified; C64.9 Malignant neoplasm of unspecified kidney, except renal pelvis; R13.10 Dysphagia, unspecified; I11.0 Hypertensive heart disease with heart failure; E83.52 Hypercalcemia; E87.5 Hyperkalemia; G20 Parkinson's disease; B96.89 Other specified bacterial agents as the cause of diseases classified elsewhere; F02.80 Dementia in other diseases classified elsewhere, unspecified severity, without behavioral disturbance, psychotic disturbance, mood disturbance, and anxiety; G30.9 Alzheimer's disease, unspecified; Z79.4 Long term (current) use of insulin; Z79.899 Other long term (current) drug therapy; G89.4 Chronic pain syndrome; I25.10 Atherosclerotic heart disease of native coronary artery without angina pectoris; K43.9 Ventral hernia without obstruction or gangrene; K42.9 Umbilical hernia without obstruction or gangrene; K21.9 Gastro-esophageal reflux disease without esophagitis; I70.0 Atherosclerosis of aorta; E86.0 Dehydration; E78.5 Hyperlipidemia, unspecified; K82.8 Other specified diseases of gallbladder; M19.90 Unspecified osteoarthritis, unspecified site; Y83.9 Surgical procedure, unspecified as the cause of abnormal reaction of the patient, or of later complication, without mention of misadventure at the time of the procedure; Y82.9 Unspecified medical devices associated with adverse incidents; Y92.129 Unspecified place in nursing home as the place of occurrence of the external cause; N18.9 Chronic kidney disease, unspecified; E11.9 Type 2 diabetes mellitus without complications; D63.8 Anemia in other chronic diseases classified elsewhere; E11.22 Type 2 diabetes mellitus with diabetic chronic kidney disease; F29 Unspecified psychosis not due to a substance or known physiological condition; G47.00 Insomnia, unspecified; Z99.81 Dependence on supplemental oxygen; Z96.641 Presence of right artificial hip joint; Z87.442 Personal history of urinary calculi; Z66 Do not resuscitate; K76.89 Other specified diseases of liver; D50.9 Iron deficiency anemia, unspecified; D73.89 Other diseases of spleen; E66.01 Morbid (severe) obesity due to excess calories; D47.3 Essential (hemorrhagic) thrombocythemia
CPT/HCPCS: 36415; 71045-TC; 74018; 76705-TC; 80048-TC; 80053-TC; 80061-TC; 80076-TC; 80202-TC; 81000-TC; 82272-TC; 82550-TC; 82570-TC; 83540-TC; 83605-TC; 83690-TC; 83735-TC; 83970; 84100-TC; 84155; 84155-TC; 84165; 84300-TC; 84484-TC; 85025-TC; 85730-TC; 87040-TC; 87081-TC; 87086-TC; 87186-TC; A4216; A4217; A4606; A6403; C9113; J1450; J2185; J2543; J2765; J2916; J3370; J3490; J7030; J7042; J7050; J7060; J7070; Q9963; Z7610